=== PATIENT | female | born 1945 | race Caucasian/White ===

== ENCOUNTER → 2019-05-01 | Outpatient (CLI) | payer MEDICARE ==
--- NOTE | 2019-05-01 16:14 | REP ---
Three views thoracic spine, two views right scapula and three views right shoulder: 05/01/2019. Indication: Thoracic, scapular and shoulder pain. Comparison: 12/09/2013. Findings: Diffuse osteopenia is noted. Numerous chronic thoracic anterior compression fractures are redemonstrated with associated exaggerated kyphosis. There is no evidence of acute fracture, subluxation or dislocation. There is no acute osseous injury of the right shoulder or right scapula detected. The visualized lung is clear. Mild S-shaped thoracolumbar scoliosis is present. Impression: No acute osseous injury of the thoracic spine, scapula or right shoulder. Osteopenia. Electronically Signed by Graham Machado DO 05/01/2019 04:05 P
== END ==
LOC: M WUC 14:14
PROVIDERS: ATTEND Nurse Practitioner Family
DX: M85.80 Other specified disorders of bone density and structure, unspecified site (principal); M54.9 Dorsalgia, unspecified; M25.511 Pain in right shoulder

== ENCOUNTER 2019-05-20 05:53 | Inpatient (IN) | payer MEDICARE ==
[~2019-05-20] VITALS: Ht 160 cm; Wt 65.8 kg
[2019-05-20] VITALS (39 sets, daily range): BP systolic 82–182; BP diastolic 50–99; O2SAT 95–99
[2019-05-20] MEDS ORDERED: PRED20TA PO ×2 (06:14→09:07)
[2019-05-20] MEDS ORDERED: ALBU8.5H IH (06:14)
[2019-05-20] MEDS ORDERED: DOXY100T27 PO (06:14)
[2019-05-20] MEDS ORDERED: METH4PACK PO (06:14)
[2019-05-20] MEDS ORDERED: dexameTHASONE 20 MG/5 ML VIAL (J1100) IV ONE (06:15)
[2019-05-20] MEDS ORDERED: MAGNESIUM *L&D* 4 GM/100 ML BAG (40MG/ML) (J3475) IV ONE (06:15)
[2019-05-20] MEDS ORDERED: FUROSEMIDE 100 MG/10 ML VIAL (J1940) IV ONE (06:15)
[2019-05-20] MEDS ORDERED: IPRATROPIUM 0.5MG/ALBUTEROL 2.5MG INH SOL UD 3ML (DUONEB)(J7620) NEB SCH (06:15)
[2019-05-20 06:31] LABS: HEMATOCRIT 50.1 % (36.0-47.0); HEMOGLOBIN 15.6 g/dl (12.0-15.5); MEAN CORPUSCULAR HEMOGLOBIN 30.1 pg (27.0-33.0); MEAN CORPUSCULAR HGB CONC 31.1 g/dl (32.0-36.5); MEAN CORPUSCULAR VOLUME 96.5 fl (80.0-96.0); PLATELET COUNT, AUTOMATED 550 10^3/uL (150-450); RED BLOOD COUNT 5.19 10^6/uL (4.00-5.40)
[2019-05-20 06:38] LABS: WHITE BLOOD COUNT 26.5 10^3/uL (4.0-10.0)
[2019-05-20 06:40] LABS: CALCIUM LEVEL 9.9 MG/DL (8.8-10.2); CK-MB VALUE MASS 4.5 NG/ML (<3.6); CREATININE FOR GFR 1.06 MG/DL (0.55-1.30); GLOMERULAR FILTRATION RATE 54.2 (>39); MB/CK RELATIVE INDEX 8.18 (< OR =4); POTASSIUM SERUM 4.4 MEQ/L (3.5-5.1); TROPONIN I 0.06 NG/ML (< 0.10)
[2019-05-20] MEDS ORDERED: PROPOFOL 1,000 MG/100 ML VIAL As Ordered ONE ×2 (06:47→06:55)
[2019-05-20 06:57] LABS: ATYPICAL LYMPH 6 % (0-5); BASOPHILS 1 % (0-1); LYMPHOCYTES 15 % (16-44); MONOCYTES 9 % (0-5); NEUTROPHILS 67 % (28-66); PLATELET ESTIMATE INCREASED (NORMAL)
[2019-05-20] MEDS ORDERED: NS 500 ML IV ONE (07:15)
[2019-05-20] MEDS ORDERED: ROCURONIUM BROMIDE 50 MG/5 ML VIAL IV STA (07:15)
[2019-05-20] MEDS ORDERED: cefTRIAXone SOD 2 GM in D5W MINI-BAG PLUS 50 ML IV ONE (07:15)
[2019-05-20] MEDS ORDERED: AZITHROMYCIN INJ 500 MG, VIAL MATE ADAPTER 1 EACH in D5W 250 ML IV ONE (07:15)
[2019-05-20] MEDS ORDERED: VECURONIUM BROMIDE 10 MG VIAL As Ordered ONE (07:20)
[2019-05-20] MEDS ORDERED: propofoL 1,000 MG in IV 1 EA IV SCH (07:32)
[2019-05-20] MEDS ORDERED: MIDAZOLAM INJ 5 MG/ML VIAL (J2250) As Ordered ONE (07:41)
[2019-05-20] MEDS ORDERED: ETOMIDATE INJ 20MG/10ML VIAL IV ONE (07:45)
[2019-05-20] MEDS ORDERED: propofoL 200 MG/20 ML VIAL IV ONE (07:45)
[2019-05-20] MEDS ORDERED: SUCCINYLCHOLINE INJ 200 MG/10 ML VIAL (J0330) IV ONE (07:45)
[2019-05-20] MEDS ORDERED: PROAAER10 INH (07:46)
[2019-05-20] MEDS ORDERED: NOREPINEPHRINE 4 MG/4 ML AMP As Ordered ONE (07:48)
[2019-05-20] MEDS ORDERED: MIDAZOLAM HCL 100 MG in D5W 80 ML IV SCH (07:50)
[2019-05-20] MEDS: NOREPINEPHRINE BITARTRATE 8 MG in D5W 492 ML IV SCH ×4 (08:00→17:00)
[2019-05-20] MEDS ORDERED: MIDAZOLAM HCL 50 MG in D5W 40 ML IV SCH (08:00)
--- NOTE | 2019-05-20 08:01 | REP ---
Portable chest x-ray: Supine film. 07:23 a.m. film History: Endotracheal tube placement. Comparison study: May 20, 2019 at 06:26 a.m. Findings: Endotracheal tube has been inserted and is seen in good position at the level of the transverse aorta. Lungs are symmetrically aerated. No infiltrate is seen. Heart is not enlarged. Impression: Endotracheal tube in good position. Otherwise no acute disease. Electronically Signed by Roque Walker MD 05/20/2019 07:53 A
--- NOTE | 2019-05-20 08:09 | REP ---
Portable chest x-ray: Single view. 06:26 a.m. film. History: Dyspnea. No comparison study. Findings: EKG monitoring electrodes overlie the chest along with oxygen delivery tubing. The lungs are symmetrically aerated and free of infiltrate. Heart is not enlarged. Pulmonary vasculature is not increased. Impression: No acute disease. Electronically Signed by Roqeu Walker MD 05/20/2019 08:01 A
[2019-05-20] MEDS ORDERED: REFRIGERATOR IV KEYS XX PRN (08:15)
[2019-05-20] MEDS ORDERED: GABA-843 PO (09:07)
[2019-05-20] MEDS ORDERED: ROCURONIUM BROMIDE 50 MG/5 ML VIAL ONE (09:28)
[2019-05-20] MEDS ORDERED: ETOMIDATE INJ 20MG/10ML VIAL ONE (09:28)
[2019-05-20] MEDS ORDERED: SUCCINYLCHOLINE 100 MG/5 ML SYRINGE (J0330) ONE (09:28)
[2019-05-20] MEDS ORDERED: propofoL 200 MG/20 ML VIAL ONE (09:28)
[2019-05-20 10:28] LABS: MAGNESIUM LEVEL 2.7 MG/DL (1.8-2.4); PHOSPHORUS LEVEL 5.2 MG/DL (2.5-4.9)
[2019-05-20] MEDS: IPRATROPIUM 0.5MG/ALBUTEROL 2.5MG INH SOL UD 3ML (DUONEB)(J7620) NEB SCH ×3 (10:55→20:46)
[2019-05-20] MEDS: PANTOPRAZOLE 40MG INJ (PROTONIX) (C9113) IV SCH (11:02)
[2019-05-20] MEDS: methylPREDNISolone INJ 40 MG/1 ML VIAL (J2920) IV SCH ×2 (11:02→20:08)
[2019-05-20] MEDS: CHLORHEXIDINE GLUCONATE 0.12 % 15ML UDC (PERIDEX ORAL RINSE) MT SCH ×2 (11:02→20:29)
[2019-05-20] MEDS: ENOXAPARIN 40 MG/0.4 ML SYRINGE (J1650) SC SCH (11:03)
[2019-05-20] MEDS: MOXIFLOXACIN HCL 400 MG in IV 1 EA IV SCH (12:33)
[2019-05-20] MEDS ORDERED: NS 1,000 ML IV ONE (13:00)
--- NOTE | 2019-05-20 14:18 | HPEPDOC ---
[facility] Medical History & Physical Date of Admission May 20, 2019 Date of Service: May 20, 2019 Attending Physician: BOZENA TROY MD History and Physical CHIEF COMPLAINT: Dypnea HISTORY OF PRESENT ILLNESS: Patient is a 73 yo female with Hx of COPD who was BIBA to the ED this AM c/o difficulty breathing, and increased cough over the past 4 days. History obtained through ED physician and patient's son as patient intubated at time of admission. Pt was seen in at two separate urgent care visits, was given Medrol dosepak and doxycycline at one visit and prednisone and an inhaler at another visit. Pt's dyspnea has continued to worsen and prompted her to come to the ED this AM. As per her son he had also given her an antibiotic for a tooth ache and she had also complained of back pain and chest pain prior to admission. In the ED, Pt given albuterol, Mg, Dexamethasone and furosemide 100mg IV, placed on NIPPV, but continued to have respiratory distress. Pt was then intubated in the ED and admitted to the intensive care unit. Pt initially placed on levophed in the ED for hypotension post intubation when on propofol for sedation prior to moving to the ICU PAST MEDICAL HISTORY: 1. COPD PAST SURGICAL HISTORY: 1. section SOCIAL HISTORY: Limited secondary to patient being intubated and mechanically ventilated Tobacco use: current every day smoker FAMILY HISTORY: Limited secondary to patient being intubated and mechanically ventilated ALLERGIES: Please see below. REVIEW OF SYSTEMS: Limited secondary to patient being intubated and mechanically ventilated RESPIRATORY: Increased cough, increased difficulty breathing HOME MEDICATIONS: Please see below. PHYSICAL EXAMINATION: VITAL SIGNS: see below GENERAL APPEARANCE: Pt is a elderly female currently sedated and paralyzed s/p RSI, undergoing invasive ventilation. HEENT: Head normocephalic, atraumatic. Mucous membranes moist. ET tube in place. CARDIOVASCULAR: Heart sounds difficult to distinguish secondary to ventilator noise. 2+ distal pulses in all four extremities. LUNGS: Diffuse severe wheezing throughout all lung woods, coarse breath sounds, with very prolonged expiration. Mild rhonchi. ABDOMEN: Soft, non-tender, non-distended. Small subcutaneous, mobile, nodule to the left lower abdomen overlying the ASIS. MUSCULOSKELETAL: No gross deformity. EXTREMITIES: 2+ distal pulses in all 4 extremities, no pitting edema b/l LE. NEUROLOGICAL: unresponsive secondary to sedation and paralyzation. LABORATORY DATA: See below. IMAGING: CXR with signs of hyperinflation and mild airspace disease, flattened diaphragm b/l. No infiltrate or focal consolidation. Repeat CXR with ET tube in correct position. MICROBIOLOGY: Please see below. ASSESSMENT: Pt is a 73 yo F current smoker with Hx of COPD who presented to the ED in acute on chronic hypercarbic respiratory failure secondary to AECOPD, who failed NIPPV and required invasive ventilation. PLAN: 1. Acute on chronic hypercarbic respiratory failure secondary to acute exacerbation of chronic obstructive pulmonary disorder, requiring invasive ventilation. - Continue with invasive ventilation: Volume Control, RR 22, PEEP 5, TV 310mL, SpO2 increased to 45%. Pt tolerating well. - Continue with midazolam drip for sedation while intubated with daily sedation vacation - Initial ABG consistent with acute on chronic hypercarbic respiratory failure, improved s/p intubation and ventilation. - Acute respiratory failure likely secondary to COPD exacerbation. - Pending sputum culture, blood cultures and respiratory panel. - Continue with Duoneb q4h, Methylprednisolon IV 40mg q8h - Patient did not receive ordered abx in the ED, will start patient on M oxifloxacin for COPD exacerbation. 2. Hypotension - Pt had brief episode of hypotension s/p RSI in the ED responding to norepinephrine and 500cc bolus - Later in the ICU, pt with further hypotension. D/c'd propofol for sedation, and gave 1000cc bolus which patient was responsive to. 3. Elevated NT Pro-BNP - NT Pro-BNP at 878 - This is possibly secondary to fluid overload, patient received 100mg of Lasix in the ED, but pt also became hypotensive after diuresis. - Pending echocardiogram to evaluate for heart failure 4. Leukocytosis - WBC 26.5 - likely reactive leukocytosis secondary to recent steroid use, WBC differential without left shift. Less likely secondary to sepsis. CXR on admission did not show any focal opacities to suggest PNA. She was afebrile. Avelox started for COPD exacebation. patient was not give 30mL/kg bolus as there was some concern for fluid overload. DVT prophylaxis with Lovenox GI Ulcer prophylaxis with pantoprazole Total critical care time approx 1hr and 50 mins I, Bozena Troy, have conducted an independent examination and history of the patient and agree with the above plan as detailed and discussed during rounds. Vital Signs Vital Signs Date Time Temp Pulse Resp B/P (MAP) Pulse Ox O2 Delivery O2 Flow Rate FiO2 05/20/19 12:00 45.0 05/20/19 12:00 97.8 87 22 102/51 (68) 87 Ventilator 45 Laboratory Data Labs 24H Laboratory Tests 2 05/20/19 06:07: Lymphocytes # (Auto) , Monocytes # (Auto) , Nucleated Red Blood Cells % (auto) 0.0, Neutrophils 67H, Band Neutrophils 2, Lymphocytes (Manual) 15L, Monocytes (Manual) 9H, Basophils (Manual) 1, Atypical Lymphocytes 6H, Platelet Estimate INCREASED, Anion Gap 6L, Glomerular Filtration Rate 54.2, Calcium Level 9.9, Phosphorus Level 5.2H, Magnesium Level 2.7H, Total Creatine Kinase 55, Creatine Kinase MB 4.5H, Creatine Kinase MB Relative Index 8.18H, Troponin I 0.06, YL-Buo-U-Type Natriuretic Peptide 878H 05/20/19 06:16: POC pH (Misc Panel) 7.140*L, POC Base Excess (Misc Panel) 9.0H, POC Saturated Percent O2 (Misc) 98, POC pO2 (Misc Panel) 142.0H, POC pCO2 (Misc Panel) 111.7*H, POC HCO3 (Misc Panel) 38.0H, POC Total CO2 (Misc Panel) 41.0H 05/20/19 07:58: POC pH (Misc Panel) 7.344L, POC Base Excess (Misc Panel) 6.0H, POC Saturated Percent O2 (Misc) 100H, POC pO2 (Misc Panel) 194.0H, POC pCO2 (Misc Panel) 57.5H, POC HCO3 (Misc Panel) 31.3H, POC Total CO2 (Misc Panel) 33.0H CBC/BMP Laboratory Tests 05/20/19 06:07 Microbiology Microbiology 05/20/19 Respiratory Virus Panel (PCR) ([facility]), Received Pending 05/20/19 Gram Stain, Received Pending 05/20/19 Sputum Culture, Received Pending 05/20/19 Blood Culture, Received Pending Home Medications Scheduled Doxycycline Monohydrate (Doxycycline Monohydrate) 100 Mg Tablet, 100 MG PO BID PICKED UP 05/18/19 FROM [facility] Gabapentin (Gabapentin) 300 Mg Capsule, 300 MG PO BID Methylprednisolone (Methylprednisolone) 4 Mg Tab.ds.pk, 4 MG PO ASDIRECTED take 6 Pills Day 1, 5 Pills Day 2, 4 Pills Day 3, 3 Pills Day 4, 2 Pills Day 5 and 1 pill Day 6, PICKED UP 05/18/19 FROM [facility] Prednisone (Prednisone) 20 Mg Tablet, 20 MG PO TAPER 60MG DAILY X 2 DAYS 40MG DAILY X 7 DAYS 20MG DAILY X 2 DAYS PICKED UP FROM [facility] 05/18/19 Scheduled PRN Albuterol Sulfate (Proair Hfa) 8.5 Gm Hfa.aer.ad, 2 PUFF INH Q4H PRN for SHORTNESS OF BREATH Allergies Coded Allergies: Penicillins (Verified Allergy, Unknown, UNKNOWN REACTION PER SON, 05/20/19) [facility] May 20, 2019 14:19 BOZENA TROY MD May 22, 2019 13:15
[2019-05-20] MEDS: MIDAZOLAM HCL 100 MG in D5W 80 ML IV SCH (19:14)
[2019-05-21] VITALS (27 sets, daily range): BP systolic 108–141; BP diastolic 54–89; O2SAT 99
[2019-05-21] MEDS: IPRATROPIUM 0.5MG/ALBUTEROL 2.5MG INH SOL UD 3ML (DUONEB)(J7620) NEB SCH ×6 (00:33→20:05)
[2019-05-21] MEDS: NOREPINEPHRINE BITARTRATE 8 MG in D5W 492 ML IV SCH (01:54)
[2019-05-21] MEDS: methylPREDNISolone INJ 40 MG/1 ML VIAL (J2920) IV SCH ×3 (04:08→20:14)
[2019-05-21 04:52] LABS: HEMATOCRIT 37.7 % (36.0-47.0); MEAN CORPUSCULAR HEMOGLOBIN 30.2 pg (27.0-33.0); MEAN CORPUSCULAR HGB CONC 32.9 g/dl (32.0-36.5); MEAN CORPUSCULAR VOLUME 91.7 fl (80.0-96.0); RED BLOOD COUNT 4.11 10^6/uL (4.00-5.40); WHITE BLOOD COUNT 20.3 10^3/uL (4.0-10.0)
[2019-05-21 04:55] LABS: HEMOGLOBIN 12.4 g/dl (12.0-15.5); PLATELET COUNT, AUTOMATED 435 10^3/uL (150-450)
[2019-05-21 05:09] LABS: CALCIUM LEVEL 8.6 MG/DL (8.8-10.2); CREATININE FOR GFR 1.37 MG/DL (0.55-1.30); GLOMERULAR FILTRATION RATE 40.3 (>39); MAGNESIUM LEVEL 3.3 MG/DL (1.8-2.4); PHOSPHORUS LEVEL 4.5 MG/DL (2.5-4.9); POTASSIUM SERUM 4.3 MEQ/L (3.5-5.1)
[2019-05-21 06:21] LABS: ABG BASE EXCESS 4.8 (-2.0-2.0); ABG HCO3 28.9 MEQ/L (22.0-26.0); ABG O2 SATURATION 98.4 % (95.0-99.0); ABG PARTIAL PRESSURE CO2 40.7 mmHg (35.0-45.0); ABG PARTIAL PRESSURE O2 107.7 mmHg (75.0-100.0); ABG STANDARD HCO3 28.8 MEQ/L (22.0-26.0); ABG TOTAL CO2 30.1 MEQ/L (23.0-31.0); ABG pH (ARTERIAL) 7.469 UNITS (7.350-7.450)
[2019-05-21] MEDS ORDERED: NS 500 ML IV ONE ×2 (08:00→19:00)
[2019-05-21 08:13] LABS: TROPONIN I 0.2 NG/ML (< 0.10)
--- NOTE | 2019-05-21 08:24 | REP ---
Portable chest x-ray: Single view. History: Intubated patient. Findings: EKG electrodes are seen. Endotracheal tube is in good position at the level of the transverse aorta unchanged. NG tube enters the left upper quadrant. The lungs are symmetrically aerated. There is a skin fold at the left apex. No focal infiltrate. Heart is not enlarged. Impression: Endotracheal and nasogastric tubes in place. No acute cardiopulmonary changes. Electronically Signed by Roque Walker MD 05/21/2019 10:34 A
[2019-05-21 08:32] LABS: APPEARANCE, URINE CLOUDY (CLEAR); BACTERIA, URINE AUTO 1+ (NEGATIVE); BILIRUBIN, URINE AUTO NEGATIVE (NEGATIVE); BLOOD, URINE BLOOD 3+ (NEGATIVE); COLOR, URINE YELLOW (YELLOW); GLUCOSE, URINE (UA) AUTO NEGATIVE (NEGATIVE); KETONE, URINE AUTO NEGATIVE (NEGATIVE); LEUKOCYTE ESTERASE, URINE AUTO NEGATIVE (NEGATIVE); MUCUS, URINE SMALL (NEGATIVE); NITRITE, URINE AUTO NEGATIVE (NEGATIVE); PROTEIN, URINE AUTO NEGATIVE (NEGATIVE); RBC, URINE AUTO TNTC /HPF (0-3); SPECIFIC GRAVITY URINE AUTO 1.019 (1.002-1.035); SQUAMOUS EPITHELIAL CELL UR AU 0 /HPF (0-6); URIC ACID CRYSTALS SMALL; UROBILINOGEN, URINE AUTO 0.2 mg/dL (0.0-2.0); WBC, URINE AUTO 6 /HPF (0-3)
[2019-05-21] MEDS: CHLORHEXIDINE GLUCONATE 0.12 % 15ML UDC (PERIDEX ORAL RINSE) MT SCH ×2 (10:00→20:14)
[2019-05-21] MEDS: PANTOPRAZOLE 40MG INJ (PROTONIX) (C9113) IV SCH (10:00)
[2019-05-21] MEDS: ENOXAPARIN 40 MG/0.4 ML SYRINGE (J1650) SC SCH (10:00)
--- NOTE | 2019-05-21 11:13 | IPNPDOC ---
Text Note Date of Service The patient was seen on 05/21/19. NOTE S: Overnight, pt's MAP remained above 65 and norepinephrine is being held. Pt mouthed to nurse that she has a UTI, and per pt's son, she was complaining of back pain/chest pain. Per nursing, during sedation vacation, pt was fighting machine, became agitated and desaturated down to 88%. Pt's Midazolam drip rate increased to 4mg/hr, and pt recovered well. Pt's FiO2 reduced to 30% and pt tolerating well. O: Physical exam VS: See below General: Pt sedated and undergoing invasive mechanical ventilation, but responsive to commands to open eyes and wakes to noise stimulus. HEENT: crusted eyelids without purulent drainage, mucous membranes moist, trachea midline. ET tube 23 at the lips, OG tube in place. Cardiovascular: Normal S1 and S2, no murmurs, gallops or rubs appreciated. 2+ radial and DP pulses in b/l arms and legs. Respiratory: Diffuse moderate inspiratory and expiratory wheezes, improved from yesterday. Coarse breath sounds. No crackles. Gastrointestinal: Abdomen is soft, non-tender and non-distended. Left lower abdomen with subcutaneous nodule. Extremities: Trace pitting edema b/l LE up to the mid durham. Skin: No rashes, bruising or petechiae noted. Neuro: Sedated but responds to commands and questions. PERRLA. Labs: See below. blood cultures: neg Respiratory panel: neg Sputum culture: preliminary result with gram positive cocci and rods CXR: ET tube close to the renetta, no acute disease. A: Pt is a 73 yo Female on day 2 of her ICU stay who was admitted to the hospital for acute on chronic hypercapnic respiratory failure, likely secondary to Acute exacerbation of COPD. Pt failed NIPPV in the ED, requiring intubation and mechanical ventilation, along with treatment of her COPD exacerbation. P: 1. Acute on chronic hypercarbic respiratory failure secondary to acute exacerbation of chronic obstructive pulmonary disorder, requiring invasive ventilation. - Continue with invasive ventilation: Volume Control, TV 370, RR 22, FiO2 decreased to 30%, PEEP 5. ET tube moved to 23cm at the lips given CXR findings. - during sedation vacation pt did not tolerate ventilator well, desaturated. Will wait another day before attempting weaning trial. - Continue with midazolam at 4mg/hr for sedation while intubated with daily sedation vacations. - ABG today improved, no longer hypercarbic. - Acute respiratory failure likely secondary to COPD exacerbation from viral process, although respiratory panel negative. - blood culture with no growth at 24hrs - sputum culture preliminary results with gram positive cocci and rods, likely normal torsten - Continue with Duoneb q4h, Methylprednisolone IV 40mg q8h, and Moxifloxacin 400mg QD for COPD exacerbation. 2. Hypotension - resolving - Pt had brief episode of hypotension s/p RSI in the ED responding to norepinephrine and 500cc bolus - Pt's hypotension improved s/p d/c of propofol and an additional 1000mL bolus. Pt not requiring norepinephrine overnight with MAP>65 all night. 3. Acute Kidney Injury - BUN increased to 49 today, Creatinine increased to 1.37 today - likely pre-renal secondary to diuresis and hypotension yesterday - treating with 500mL bolus of IVF and starting OG tube feedings with free water today. 4. Troponinemia - repeated troponin as pt and son with some concerning history of chest pain/back pain - repeat troponin elevated at 0.20 - recheck troponin at 1400 - likely secondary to mild demand ischemia with some underlying CAD given pt is a current everyday smoker. 5. Elevated NT Pro-BNP - NT Pro-BNP at 878 - This is possibly secondary to fluid overload, patient received 100mg of Lasix in the ED, but pt also became hypotensive after diuresis. - Pending echocardiogram results to evaluate for heart failure 6. Leukocytosis - improving - WBC improved from 26.5, now 20.3 - likely reactive leukocytosis secondary to recent steroid use, WBC differential without left shift. Less likely secondary to sepsis as pt without clear source of infection on CXR and UA with no other localizing symptoms and afebrile throughout stay, Tmax 99.1. 7. OG tube feeding - starting today at 20mL/hr titrating up to 50ml/hr goal. - free water 100 mL q8hr - Vegetable [employer] Farm[employer] recommends addition of 1 scoop of beneprotein 4x/day - hold feeding for residual >300mL 8. Concern for UTI - given hx from pt, son and nurse, ordered UA. - UA without definitive signs of infection, but positive for hematuria. Pt does not have UTI at this time. DVT prophylaxis with Lovenox GI Ulcer prophylaxis with pantoprazole Total critical care time spent approx 50mins Bozena [place], have conducted an independent examination and history of patient and agree with the plan as detailed above and discussed during rounds. VSDot, I+O VSDot, I+O Laboratory Tests 05/21/19 04:21 Vital Signs Date Time Temp Pulse Resp B/P (MAP) Pulse Ox O2 Delivery O2 Flow Rate FiO2 05/21/19 06:01 98.9 102 141/89 (106) 95 Ventilator 35 05/21/19 05:20 22 05/20/19 12:00 45.0 I&O- Last 24 Hours up to 6 AM 05/21/19 06:00 Intake Total 1190.1 ml Output Total 2019 ml Balance -829.9 ml [facility] May 21, 2019 09:48 BOZENA KENNEDY MD May 22, 2019 13:41
[2019-05-21] MEDS: MOXIFLOXACIN HCL 400 MG in IV 1 EA IV SCH (11:32)
[2019-05-21] MEDS ORDERED: SLF 3 ML SYR IV PRN (17:30)
[2019-05-21] MEDS: MIDAZOLAM HCL 100 MG in D5W 80 ML IV SCH (18:18)
[2019-05-21] MEDS: SLF 3 ML SYR IV SCH (20:14)
[2019-05-22] VITALS (24 sets, daily range): BP systolic 111–148; BP diastolic 57–77; O2SAT 89–97
[2019-05-22] MEDS: IPRATROPIUM 0.5MG/ALBUTEROL 2.5MG INH SOL UD 3ML (DUONEB)(J7620) NEB SCH ×6 (00:21→19:51)
[2019-05-22] MEDS: methylPREDNISolone INJ 40 MG/1 ML VIAL (J2920) IV SCH ×3 (04:00→19:45)
[2019-05-22 05:00] LABS: HEMATOCRIT 35.7 % (36.0-47.0); HEMOGLOBIN 11.8 g/dl (12.0-15.5); MEAN CORPUSCULAR HEMOGLOBIN 30.4 pg (27.0-33.0); MEAN CORPUSCULAR HGB CONC 33.1 g/dl (32.0-36.5); PLATELET COUNT, AUTOMATED 379 10^3/uL (150-450); RED BLOOD COUNT 3.88 10^6/uL (4.00-5.40)
[2019-05-22 05:21] LABS: CALCIUM LEVEL 8.1 MG/DL (8.8-10.2); CREATININE FOR GFR 1.34 MG/DL (0.55-1.30); GLOMERULAR FILTRATION RATE 41.4 (>39); MAGNESIUM LEVEL 2.8 MG/DL (1.8-2.4); PHOSPHORUS LEVEL 3.7 MG/DL (2.5-4.9)
[2019-05-22 06:15] LABS: ABG BASE EXCESS 3.3 (-2.0-2.0); ABG HCO3 27.6 MEQ/L (22.0-26.0); ABG O2 SATURATION 94.8 % (95.0-99.0); ABG PARTIAL PRESSURE CO2 41.1 mmHg (35.0-45.0); ABG STANDARD HCO3 27.3 MEQ/L (22.0-26.0); ABG TOTAL CO2 28.9 MEQ/L (23.0-31.0); ABG pH (ARTERIAL) 7.445 UNITS (7.350-7.450)
[2019-05-22] MEDS: SLF 3 ML SYR IV SCH ×3 (06:16→21:17)
--- NOTE | 2019-05-22 07:34 | ECGEPIP ---
[facility] - ED Test Date: 2019-05-20 Pat Name: MO GRANT Department: Room: - Gender: Female Proposal Consultant: KK : [id number] Requested By: DELLA SIMON Order Number: [id number] Reading MD: Cee Laguna Measurements Intervals Basehor Rate: 111 P: 93 OK: 128 QRS: 48 QRSD: 78 T: 49 QT: 296 QTc: 403 Interpretive Statements SINUS TACHYCARDIA NSTTW abnormalities ABNORMAL RHYTHM ECG NO PRIOR Electronically Signed on 05-22-2019 7:34:35 EST by Cee Laguna
--- NOTE | 2019-05-22 08:00 | REP ---
Portable chest x-ray: Single view. History: Intubated patient. Comparison study: May 21, 2019. Findings: The patient is rotated somewhat to the right. The patient's chin overlies the apices. Endotracheal tube projects just above the renetta. A nasogastric tube is seen entering the left upper quadrant. No infiltrate is present. Electronically Signed by Roque Walker MD 05/22/2019 07:51 A
[2019-05-22] MEDS: MOXIFLOXACIN HCL 400 MG in IV 1 EA IV SCH (09:57)
[2019-05-22] MEDS: CHLORHEXIDINE GLUCONATE 0.12 % 15ML UDC (PERIDEX ORAL RINSE) MT SCH ×2 (09:57→19:45)
[2019-05-22] MEDS: ENOXAPARIN 40 MG/0.4 ML SYRINGE (J1650) SC SCH (09:57)
[2019-05-22] MEDS: PANTOPRAZOLE 40MG INJ (PROTONIX) (C9113) IV SCH (09:57)
--- NOTE | 2019-05-22 12:28 | IPNPDOC ---
Text Note Date of Service The patient was seen on 05/22/19. NOTE S: Overnight, pt tolerating ventilator well at 30% FiO2, SpO2 92-99%. Nursing staff noted frequent PVCs and PACs overnight, but no sustained beats. Pt currently at Tommy sedation score of 2 on midazolam at 4mg/hr, pt comfortable, in no pain. Attempted weaning trial this AM, but pt quickly became tachypneic into the 50's and desaturated into 80's. Pt replaced on Volume Control settings. O: Physical exam VS: see below General: Pt lightly sedated and undergoing invasive mechanical ventilation, but responsive to commands, communicating through writing. HEENT: PERRLA, EOMI, mucous membranes moist, trachea midline. ET tube 23 at the lips, OG tube in place. Cardiovascular: Normal S1 and S2, no murmurs, gallops or rubs appreciated. 2+ radial and DP pulses in b/l arms and legs. Respiratory: Diffuse mild expiratory wheezes, improved from yesterday. Coarse breath sounds. No crackles. Gastrointestinal: Abdomen is soft, non-tender and non-distended. Left lower abdomen with subcutaneous nodule. Extremities: Trace pitting edema b/l LE up to the mid durham, unchanged from yest erday. Skin: No rashes, bruising or petechiae noted. Neuro: lightly sedated, Tommy sedation score scale 2, follows commands and responds to questions through head motions. Labs: See below. blood cultures: neg x 48hrs Respiratory panel: neg Sputum culture: preliminary result with gram positive cocci and rods CXR: no acute disease. A: Pt is a 73 yo Female on day 3 of her ICU stay who was admitted to the hospital for acute on chronic hypercapnic respiratory failure, likely secondary to Acute exacerbation of COPD. Pt failed weaning trial from ventilator today, and will continue with treatment of her COPD exacerbation. Currently on Day 3/5 of abx therapy and 3/5 of corticosteroid therapy. P: 1. Acute on chronic hypercarbic respiratory failure secondary to acute exacerbation of chronic obstructive pulmonary disorder, requiring invasive ventilation. - Continue with invasive ventilation: Volume Control, TV 370, RR 22, FiO2 30%, PEEP 5. ET tube 23cm at the lips. - attempted weaning trial this AM, pt tolerated poorly becoming tachypneic into 50's and desaturated down to SpO2 80%. Will attempt again tomorrow AM. - Continue with midazolam at 4mg/hr for maintenance sedation with sedation vacation daily - daily ABG and CXR while intubated, vent bundle with HOB elevation and chlorhexidine mouth wash - ABG stable. - Acute respiratory failure likely secondary to COPD exacerbation from viral process, although respiratory panel negative. - blood culture with no growth at 48hrs - sputum culture final results with normal torsten - Continue with Duoneb q4h, Methylprednisolone IV 40mg q8h (Day 3/5), and Moxifloxacin 400mg QD (Day 3/5) for COPD exacerbation. 2. Acute Kidney Injury - BUN increased to 57 today, Creatinine stabilized at 1.34 today - likely secondary to diuresis on admission, repeat BMP this afternoon to reevaluate. - Holding IVF for now as pt with OG tube feedings at goal with free water, and exercising caution to not fluid overload patient in light of concern for HF. 3. Troponinemia - repeated troponin as pt and son with some concerning history of chest pain/back pain - repeat troponin elevated at 0.20, but trending downward after 6 hours. - likely secondary to demand ischemia. Recommend pt receive cardiac catheterization in the near future. 4. Elevated NT Pro-BNP - NT Pro-BNP at 878 - This is possibly secondary to fluid overload but most likely related to acute COPD and also likely her hx of chronic COPD with possible pulm HTN. patient received 100mg of Lasix in the ED, but pt also became hypotensive after diuresis. would hold diuresis for now and monitor fluid status - Pending echocardiogram results to evaluate for heart failure, echo completed May. 5. Leukocytosis - WBC improved from 26.5, stable at 20.0 today - likely reactive leukocytosis secondary to recent steroid use, WBC differential without left shift. Less likely secondary to sepsis as pt without source of infection and afebrile throughout stay, Tmax 99.1. - considering continued leukocytosis today, ordered Procalcitonin. I doubt pneumonia as blood cultures and sputum cultures are negative. 6. OG tube feeding - starting today at 20mL/hr titrating up to 50ml/hr goal. - free water 100 mL q8hr - High School Coach recommends addition of 1 scoop of beneprotein 4x/day - hold feeding for residual >300mL 7. Hypotension - resolved - Pt had brief episode of hypotension s/p RSI in the ED responding to norepinephrine and 500cc bolus - Pt's hypotension improved s/p d/c of propofol and 1000mL bolus. Norepinephrine drip d/c. DVT prophylaxis with Lovenox GI Ulcer prophylaxis with pantoprazole FULL CODE Total critical care time spent not including any procedures approx 40mins Bozena [place], have conducted and independent examination and history of patient and agree with the above plan as detailed by medical student and discussed during rounds. VS,Fishbone, I+O VS, Fishbone, I+O Laboratory Tests 05/22/19 04:49 Vital Signs Date Time Temp Pulse Resp B/P (MAP) Pulse Ox O2 Delivery O2 Flow Rate FiO2 05/22/19 08:00 30 30 05/22/19 07:46 93 05/22/19 07:46 93 Ventilator 05/22/19 04:00 98.0 144/70 (94) 05/20/19 12:00 45.0 I&O- Last 24 Hours up to 6 AM 05/22/19 06:00 Intake Total 2524 ml Output Total 865 ml Balance 1659 ml [facility] May 22, 2019 11:13 BOZENA KENNEDY MD May 25, 2019 13:09
[2019-05-22] MEDS: MIDAZOLAM INJ 2 MG/2 ML VIAL (J2250) IV PRN ×2 (13:13→16:07)
[2019-05-22] MEDS: fentaNYL 100 MCG/2 ML INJECTION (J3010) IV PRN ×2 (13:13→16:07)
[2019-05-22 14:02] LABS: CALCIUM LEVEL 8.5 MG/DL (8.8-10.2); CREATININE FOR GFR 1.4 MG/DL (0.55-1.30); GLOMERULAR FILTRATION RATE 39.4 (>39); POTASSIUM SERUM 4.3 MEQ/L (3.5-5.1)
[2019-05-22] MEDS: NS 0.45% 1,000 ML IV SCH (16:06)
[2019-05-22] MEDS: NICOTINE 21MG/24HR 1 EA TRANSDERMAL TD SCH (17:16)
[2019-05-22] MEDS: MIDAZOLAM HCL 100 MG in D5W 80 ML IV SCH (18:05)
[2019-05-23] VITALS (22 sets, daily range): BP systolic 126–167; BP diastolic 69–119; O2SAT 92–96
[2019-05-23] MEDS: IPRATROPIUM 0.5MG/ALBUTEROL 2.5MG INH SOL UD 3ML (DUONEB)(J7620) NEB SCH ×7 (00:34→23:56)
[2019-05-23] MEDS: methylPREDNISolone INJ 40 MG/1 ML VIAL (J2920) IV SCH ×2 (04:01→16:31)
[2019-05-23 05:29] LABS: HEMATOCRIT 39.9 % (36.0-47.0); HEMOGLOBIN 12.7 g/dl (12.0-15.5); MEAN CORPUSCULAR HEMOGLOBIN 29.7 pg (27.0-33.0); MEAN CORPUSCULAR HGB CONC 31.8 g/dl (32.0-36.5); MEAN CORPUSCULAR VOLUME 93.4 fl (80.0-96.0); PLATELET COUNT, AUTOMATED 406 10^3/uL (150-450); RED BLOOD COUNT 4.27 10^6/uL (4.00-5.40); WHITE BLOOD COUNT 20.3 10^3/uL (4.0-10.0)
[2019-05-23] MEDS: SLF 3 ML SYR IV SCH ×3 (05:30→21:06)
[2019-05-23] MEDS: NS 0.45% 1,000 ML IV SCH (05:30)
[2019-05-23 05:42] LABS: CALCIUM LEVEL 8.3 MG/DL (8.8-10.2); CREATININE FOR GFR 1.14 MG/DL (0.55-1.30); GLOMERULAR FILTRATION RATE 49.9 (>39); MAGNESIUM LEVEL 2.8 MG/DL (1.8-2.4); PHOSPHORUS LEVEL 3.9 MG/DL (2.5-4.9); POTASSIUM SERUM 4.2 MEQ/L (3.5-5.1)
[2019-05-23 05:52] LABS: ABG BASE EXCESS 1.7 (-2.0-2.0); ABG HCO3 26.9 MEQ/L (22.0-26.0); ABG PARTIAL PRESSURE CO2 44.9 mmHg (35.0-45.0); ABG PARTIAL PRESSURE O2 105.5 mmHg (75.0-100.0); ABG TOTAL CO2 28.3 MEQ/L (23.0-31.0); ABG pH (ARTERIAL) 7.396 UNITS (7.350-7.450)
--- NOTE | 2019-05-23 06:38 | ECHO ---
DATE OF PROCEDURE: 05/20/2019 REFERRING PROVIDER: Dr. Mary Desai INDICATION: Heart failure unspecified. HEIGHT: 160 cm. WEIGHT: 62 kg. 2D MEASUREMENTS: Aortic root - 2.7 cm Left atrium - 2.9 cm Ventricular septum - 1.18 cm Posterior wall - 1.16 cm Left ventricle diastole - 3.0 cm Inferior vena cava - 1.6 cm DOPPLER MEASUREMENTS: Aortic valve velocity - 124 cm/s LVOT velocity - 121 cm/s LVOT VTI - 15.1 cm No aortic regurgitation. No mitral regurgitation. No tricuspid regurgitation. No pulmonic regurgitation. Mitral E velocity - 61.7 cm/s Mitral A velocity - 87.4 cm/s Mitral deceleration time - 282 ms Pulmonary artery systolic pressure estimated to be 25 mmHg. MITRAL ANNULAR TISSUE DOPPLER: E prime septal - 5.3 cm/s E prime lateral - 5.4 cm/s DESCRIPTION: Rhythm was sinus. Image quality was moderately technically difficult. This was a 2D, M-mode, color flow Doppler and pulsed wave Doppler examination including mitral annular tissue Doppler. CONCLUSIONS: 1. Hyperdynamic LV systolic function. Normal LV internal dimensions and wall thickness. LVEF 75% by visual estimate. No regional wall motion abnormalities of the left ventricle. Grade 1 LV diastolic dysfunction (impaired relaxation filling pattern). 2. Suggestive of normal pulmonary artery systolic pressure. 3. Mild aortic valve sclerosis of a three-cuspid aortic valve. No aortic regurgitation. 4. Mild mitral annular calcification. No mitral regurgitation. 5. No pericardial effusion.
--- NOTE | 2019-05-23 08:34 | IPNPDOC ---
Text Note Date of Service The patient was seen on 05/23/19. NOTE S: Yesterday afternoon, pt became agitated and anxious regarding her progress, requiring additional doses of midazolam and fentanyl. Nicotine patch given as requested. Attempted weaning trial yesterday morning but pt did not tolerate. Overnight there were no adverse events, and nursing notes her urine output to be around 40cc/hr. This morning pt requesting extubation, noting her breathing to be improved and denies being in any pain. Attempted weaning trial this AM, however pt still unable to tolerate. O: Physical exam VS: see below General: Pt lightly sedated and undergoing invasive mechanical ventilation, but responsive to commands, communicating through writing. HEENT: PERRLA, EOMI, mucous membranes moist, trachea midline. ET tube 23 at the lips, OG tube in place. Cardiovascular: Normal S1 and S2, no murmurs, gallops or rubs appreciated. 2+ radial and DP pulses in b/l arms and legs. Respiratory: Mild expiratory wheezes on the left, mild inspiratory and expirat ory wheezes on the right. Coarse breath sounds. No crackles. Gastrointestinal: Abdomen is soft, non-tender and non-distended. Left lower abdomen with subcutaneous nodule. Extremities: Trace pitting edema b/l LE up to the mid [place]. Skin: No rashes, bruising or petechiae noted. Neuro: lightly sedated, Tommy sedation score scale 2, follows commands and responds to questions through head motions. Labs: See below. blood cultures: neg x 72hrs Respiratory panel: neg Sputum culture: final result negative. Normal torsten. CXR: signs of pulmonary edema with b/l pleural effusions, ET tube near renetta Echocardiogram: hyperdynamic LV systolic function, LVEF 75%, grade I diastolic dysfunction. Mild mitral regurgitation. A: Pt is a 73 yo Female on day 4 of her ICU stay who was admitted to the hospital for acute on chronic hypercapnic respiratory failure, likely secondary to Acute exacerbation of COPD. Pt failed weaning trial from ventilator yesterday and today, will reattempt tomorrow, and continue with treatment of her COPD exacerbation. Currently on Day 4/5 of abx therapy and 4 of corticosteroid therapy, starting steroid taper. P: 1. Acute on chronic hypercarbic respiratory failure secondary to acute exacerbation of chronic obstructive pulmonary disorder, requiring invasive ventilation. - Continue with invasive ventilation: Volume Control, TV 370, RR 18, FiO2 35%, PEEP 5. ET tube 23cm at the lips, will pull back to adjust to 22cm at lips given CXR. Titrate FiO2 to SpO2 88-92%. - attempted weaning yesterday and today but pt did not tolerate. With PS at settings 6/5 patient became tachypneic to 40's and reported difficulty breathing. Will attempt again tomorrow with extubation to NIPPV if pt tolerates to hopefully avoid reintubation. - discontinue midazolam for maintenance sedation and replace with propofol for sedation as BP improved and continue with sedation vacations. - addition of PRN midazolam and fentanyl for anxiety and pain. - ABG stable. cont with daily ABG and CXR while intubated with vent bundle care - Acute respiratory failure likely secondary to COPD exacerbation from viral process, although respiratory panel negative. - blood culture with no growth at 72hrs - sputum culture final results with normal torsten - Continue with Duoneb q4h, Moxifloxacin 400mg QD (Day 08/17) for COPD exacerbation. Start weaning steroids, adjust Methylprednisolone IV to 40mg q12h Day 4 of steroids. 2. Acute Kidney Injury- resolving - likely secondary to diuresis on admission and continued cautious approach to possible fluid overload - BUN and creatinine increased further yesterday afternoon. yesterday placed patient on 75mL/hr NS - BUN/creatinine improved this AM s/p fluids. Urine output around 40cc/hr. - Discontinue IVF as pt with OG tube feedings at goal with free water. - Will continue to monitor fluid status 3. Leukocytosis - WBC remains elevated but stable, 20.3 today - likely reactive leukocytosis secondary to recent steroid use, WBC differential without left shift. Less likely secondary to sepsis as pt without source of infection and afebrile throughout stay, Tmax 99.1. - Procalcitonin 0.40. blood cultures and sputum cultures are negative. UA returned without signs of UTI. Pt remains afebrile. 4. Elevated NT Pro-BNP - Pt with some increased congestion on CXR this AM with increased sputum production overnight. Will hold IVF today, and administer furosemide if needed. - NT Pro-BNP at 878 on admission, likely due acute COPD exacerbation, less likely from HF - Echocardiogram results without signs of heart failure. EF 75% without significant diastolic dysfunction. 5. elevated blood pressure - Pt's blood pressure has been steadily climbing since admission. - BP overnight ranged from 120/60s to 160/80s. Will continue to monitor - Pt's PCP is Dr. Jain, but pt notes that she does not take any blood pressure medications at home. - do not feel need to administer antihypertensives at this time, swapping to propofol for sedation. 6. Troponinemia - repeated troponin as pt and son with some concerning history of chest pain/back pain - repeat troponin elevated at 0.20, but trending downward after 6 hours. - likely secondary to demand ischemia. Recommend pt receive cardiac evaluation and likely catheterization in the near future. 7. OG tube feeding - Continue at 50ml/hr goal. - free water 100 mL q8hr - Continue with wireline supervisor recommendation of 1 scoop of beneprotein 4x/day - hold feeding for residual >300mL DVT prophylaxis with Lovenox GI Ulcer prophylaxis with pantoprazole FULL CODE Total critical care time spent not including any procedures approx 40 mins Bozena [place], have conducted an independent examination and history of the patient and agree with the above detailed plan as discussed during rounds. VS,Fishbone, I+O VS, Fishbone, I+O Laboratory Tests 05/22/19 13:22 05/23/19 04:47 Vital Signs Date Time Temp Pulse Resp B/P (MAP) Pulse Ox O2 Delivery O2 Flow Rate FiO2 05/23/19 07:00 98 22 157/74 (101) 94 Ventilator 35 05/23/19 04:00 98.5 05/20/19 12:00 45.0 I&O- Last 24 Hours up to 6 AM 05/23/19 06:00 Intake Total 3135 ml Output Total 935 ml Balance 2200 ml [facility] May 23, 2019 08:17 BOZENA KENNEDY MD May 25, 2019 14:00
[2019-05-23] MEDS: CHLORHEXIDINE GLUCONATE 0.12 % 15ML UDC (PERIDEX ORAL RINSE) MT SCH ×2 (09:29→21:06)
[2019-05-23] MEDS: NICOTINE 21MG/24HR 1 EA TRANSDERMAL TD SCH (09:29)
[2019-05-23] MEDS: ENOXAPARIN 40 MG/0.4 ML SYRINGE (J1650) SC SCH (09:29)
[2019-05-23] MEDS: PANTOPRAZOLE 40MG INJ (PROTONIX) (C9113) IV SCH (09:29)
[2019-05-23] MEDS: MIDAZOLAM INJ 2 MG/2 ML VIAL (J2250) IV PRN ×2 (10:04→22:17)
[2019-05-23] MEDS: MOXIFLOXACIN HCL 400 MG in IV 1 EA IV SCH (11:08)
--- NOTE | 2019-05-23 11:26 | REP ---
Portable chest x-ray: AP semi-erect view. History: Intubated. Findings: Endotracheal tube is seen at the level just below the transverse aorta. NG tube enters left upper quadrant. The patient is rotated somewhat to the left for the current exposure. Monitoring electrodes and oxygen delivery tubing are seen. There is no acute infiltrate in the lung woods. Pleural angles are sharp. Heart is not enlarged. Electronically Signed by Roque Walker MD 05/23/2019 07:52 A
[2019-05-23] MEDS: propofoL 1,000 MG in IV 1 EA IV SCH ×2 (11:51→19:08)
[2019-05-23] MEDS: ACETAMINOPHEN 325 MG/10.15 ML UDC GT PRN (21:44)
[2019-05-24] VITALS (23 sets, daily range): BP systolic 118–183; BP diastolic 59–82; O2SAT 95–100
[2019-05-24] MEDS: propofoL 1,000 MG in IV 1 EA IV SCH ×3 (03:08→18:11)
[2019-05-24] MEDS: methylPREDNISolone INJ 40 MG/1 ML VIAL (J2920) IV SCH ×2 (03:08→16:34)
[2019-05-24] MEDS: IPRATROPIUM 0.5MG/ALBUTEROL 2.5MG INH SOL UD 3ML (DUONEB)(J7620) NEB SCH ×6 (04:10→23:52)
[2019-05-24 05:18] LABS: HEMATOCRIT 42.1 % (36.0-47.0); HEMOGLOBIN 12.9 g/dl (12.0-15.5); MEAN CORPUSCULAR HEMOGLOBIN 29.5 pg (27.0-33.0); MEAN CORPUSCULAR HGB CONC 30.6 g/dl (32.0-36.5); MEAN CORPUSCULAR VOLUME 96.1 fl (80.0-96.0); PLATELET COUNT, AUTOMATED 406 10^3/uL (150-450); RED BLOOD COUNT 4.38 10^6/uL (4.00-5.40); WHITE BLOOD COUNT 19.9 10^3/uL (4.0-10.0)
[2019-05-24 05:36] LABS: ABG BASE EXCESS -0.1 (-2.0-2.0); ABG HCO3 25.2 MEQ/L (22.0-26.0); ABG O2 SATURATION 96.5 % (95.0-99.0); ABG PARTIAL PRESSURE CO2 43.6 mmHg (35.0-45.0); ABG PARTIAL PRESSURE O2 86.5 mmHg (75.0-100.0); ABG STANDARD HCO3 24.4 MEQ/L (22.0-26.0); ABG TOTAL CO2 26.6 MEQ/L (23.0-31.0)
[2019-05-24] MEDS: SLF 3 ML SYR IV SCH ×3 (05:36→20:28)
[2019-05-24 05:43] LABS: CALCIUM LEVEL 8.6 MG/DL (8.8-10.2); CREATININE FOR GFR 1.09 MG/DL (0.55-1.30); GLOMERULAR FILTRATION RATE 52.5 (>39); MAGNESIUM LEVEL 2.8 MG/DL (1.8-2.4); PHOSPHORUS LEVEL 4.3 MG/DL (2.5-4.9); POTASSIUM SERUM 4.6 MEQ/L (3.5-5.1)
[2019-05-24] MEDS: CHLORHEXIDINE GLUCONATE 0.12 % 15ML UDC (PERIDEX ORAL RINSE) MT SCH ×2 (08:26→20:28)
[2019-05-24] MEDS: ENOXAPARIN 40 MG/0.4 ML SYRINGE (J1650) SC SCH (08:26)
[2019-05-24] MEDS: PANTOPRAZOLE 40MG INJ (PROTONIX) (C9113) IV SCH (08:26)
[2019-05-24] MEDS: NICOTINE 21MG/24HR 1 EA TRANSDERMAL TD SCH (08:28)
--- NOTE | 2019-05-24 08:39 | IPNPDOC ---
Text Note Date of Service The patient was seen on 05/24/19. NOTE S: Yesterday, switched patient to propofol for sedation given her elevated blood pressures. BP remained elevated overnight while on 30 mcg/kg/min propofol drip. Pt very anxious and tachypneic with weaning trial yesterday, will attempt again today. Pt required acetaminophen for sore throat last night and one dose of PRN midazolam for anxiety overnight. Otherwise, no significant changes overnight. O: Physical exam VS: see below General: Pt lightly sedated and undergoing invasive mechanical ventilation, but responsive to commands, communicating through writing. HEENT: PERRLA, EOMI, mucous membranes moist, trachea midline. ET tube 22 at the lips, OG tube in place. Cardiovascular: Normal S1 and S2, no murmurs, gallops or rubs appreciated. 2+ radial and DP pulses in b/l arms and legs. Respiratory: Mild expiratory wheezes b/l. No crackles. Symmetrical chest expansion, prolonged expiration phase. Gastrointestinal: Abdomen is soft, non-tender and non-distended. Left lower abdomen with subcutaneous nodule. Extremities: 1+ pitting edema b/l LE up to the mid [place]. Skin: No rashes, bruising or petechiae noted. Neuro: lightly sedated, Tommy sedation score scale 2, follows commands and responds to questions through head motions. Labs: See below. blood cultures: neg Respiratory panel: neg Sputum culture: final result negative. Normal torsten. CXR: No acute disease, improved pulmonary congestion from yesterday, ET tube in correct position. Echocardiogram: hyperdynamic LV systolic function, LVEF 75%, grade I diastolic dysfunction. Mild mitral regurgitation. A: Pt is a 73 yo Female on day 5 of her ICU stay who was admitted to the hospital for acute on chronic hypercapnic respiratory failure, likely secondary to Acute exacerbation of COPD. Pt failed weaning trial from ventilator yesterday and today, will reattempt tomorrow, and continue with treatment of her COPD exacerbation. Currently on Day 5/ of abx therapy and 5 of corticosteroid therapy, continuing steroid taper. P: 1. Acute on chronic hypercarbic respiratory failure secondary to acute exacerbation of chronic obstructive pulmonary disorder, requiring invasive ventilation. - Continue with invasive ventilation: Volume Control, TV 370, RR 18, FiO2 35%, PEEP 5. ET tube 22cm at the lips. Titrate FiO2 to SpO2 88-92%. - attempted weaning yesterday and today but pt did not tolerate, likely secondary to anxiety vs end-stage disease. Attempting weaning trial again to day with transition to NIPPV if pt tolerates well. - Continue with propofol for sedation with sedation vacations. - PRN midazolam and fentanyl for anxiety and pain. - scheduled alprazolam 0.125mg TID scheduled for ICU related anxiety - ABG stable. - Acute respiratory failure likely secondary to COPD exacerbation from viral process, although respiratory panel negative. - blood culture with no growth - sputum culture final results with normal torsten - Continue with Duoneb q4h, Moxifloxacin 400mg QD (Day 09/16) for COPD exacerba tion. Continue tapering steroids, Methylprednisolone IV to 40mg q12h for two more days, then drop to q24hrs and continue to lower dose. 2. Acute Kidney Injury- resolved - BUN and creatinine further improved this AM, Urine output stable. - likely secondary to diuresis on admission and continued cautious approach to possible fluid overload - Discontinue IVF as pt with OG tube feedings at goal with free water. - Will continue to monitor fluid status 3. Leukocytosis - WBC remains elevated but stable, 19.9 today. - likely reactive leukocytosis secondary to recent steroid use, WBC differential without left shift. Less likely secondary to sepsis as pt without source of infection and afebrile throughout stay, Tmax 99.1. - will continue to taper steroids, and expect to see improvement of leukocytosis as steroid dose decreases. - Procalcitonin 0.40. I doubt pneumonia as blood cultures and sputum cultures are negative. UA returned without signs of UTI. Pt remains afebrile. 4. Elevated NT Pro-BNP - CXR this AM improved with less congestion compared with yesterday morning. Continue to hold IVF today, continue tube feedings and administer furosemide if needed. - NT Pro-BNP at 878 - This is possibly secondary to fluid overload, patient received 100mg of Lasix in the ED, but pt also became hypotensive after diuresis which makes fluid overload less likely. - Echocardiogram results without signs of heart failure. EF 75% without significant diastolic dysfunction. 5. elevated blood pressure - Pt's blood pressure has been steadily climbing since admission. - BP overnight ranged from 110/60s to 180/80s. Will continue to monitor - Pt's PCP is Dr. Jain, but pt notes that she does not take any blood pressure medications at home. - do not feel need to administer antihypertensives at this time, continue with propofol for sedation. 6. Troponinemia - repeated troponin as pt and son with some concerning history of chest pain/back pain - repeat troponin elevated at 0.20, but trending downward after 6 hours. - likely secondary to demand ischemia. Recommend pt receive cardiac catheteri zation in the near future. 7. OG tube feeding - Continue at 50ml/hr goal. - free water 100 mL q8hr - Continue with iron and steel work supervisor recommendation of 1 scoop of beneprotein 4x/day - hold feeding for residual >300mL 8. DVT prophylaxis with Lovenox. 9. GI Ulcer prophylaxis with pantoprazole Addendum: 24 May 2019 1325 Patient started on pressure support of 15/5, slowly weaned to PS of 8/5 and pt did reasonably well with acceptable RSBI. However, when further weaned down to PS 5/5 her RSBI was in the 150-160s, and this did not appear to be anxiety related. Placed patients ventilation back on PS of 15/5 and will maintain this overnight to reattempt weaning trial in the AM. While we do not feel that anxiety caused her to fail this weaning trial, we acknowledge her anxiety is a major contributor to her difficulties. Will increase her Xanax to 0.25mg TID, and will obtain a CT chest without contrast. We had discussions with the patient and discussed possibility of transfer to NIPPV after extubation and patient agreed to this. We also discussed the pos sibility of her failing NIPPV and asked if she would want to be reintubated in this case. Pt vigorously said yes she would want to be reintubated if she failed NIPPV after liberation from ventilator. Additionally, we had discussions with pt's granddaughter regarding her function prior to hospitalization. Granddaughter admits to the patient using accessory muscles to breath at times, doing [id number], and having difficulty walking up stairs secondary to dyspnea. This discussion reveals the pts very limited functional capacity. Critical Care time: 40 minutes not including procedures. ADDENDUM: I, Dr. Froilan Valdez, have conducted an independent examination and history of the patient and agree with the documentation. I discussed the assessment and plan with the medical student and agree with the above documentation. VSDot, I+O VSDot, I+O Laboratory Tests 05/24/19 04:36 Vital Signs Date Time Temp Pulse Resp B/P (MAP) Pulse Ox O2 Delivery O2 Flow Rate FiO2 05/24/19 08:00 98.5 97 24 164/79 (107) 93 Ventilator 35 05/20/19 12:00 45.0 I&O- Last 24 Hours up to 6 AM 05/24/19 06:00 Intake Total 1920 ml Output Total 1485 ml Balance 435 ml [facility] May 24, 2019 08:31 Arjun VALDEZ MD Jun 09, 2019 16:58
[2019-05-24] MEDS ORDERED: ALPRAZolam 0.25 MG TAB PO PRN (09:00)
[2019-05-24] MEDS ORDERED: ALPRAZolam 0.25 MG TAB PO SCH (09:00)
[2019-05-24] MEDS ORDERED: PILL CUTTER 1 EACH XX PRN (09:15)
--- NOTE | 2019-05-24 09:31 | REP ---
CHEST, SINGLE VIEW: Single view of the chest is performed and compared to a prior study of 05/23/2019. Endotracheal tube is unchanged in position with the tip between the level of the clavicles and the renetta. Nasogastric tube traverses into the stomach. No infiltrate is seen in either lung. The heart is normal in size and the mediastinal silhouette is unremarkable. Electronically Signed by Sherman Hillman MD 05/25/2019 03:10 P
[2019-05-24] MEDS: MOXIFLOXACIN HCL 400 MG in IV 1 EA IV SCH (10:22)
--- NOTE | 2019-05-24 15:07 | REP ---
CT CHEST WITHOUT CONTRAST: HISTORY: Respiratory failure. COMPARISON CHEST X-RAY: 6:[address] earlier today[address] FINDINGS: Endotracheal tube is seen in good position in the trachea terminating at the level of the transverse aorta. A nasogastric tube enters the stomach. There are small bilateral pleural effusions. No adrenal lesion is seen. There is a large cyst affecting the upper pole of the left kidney which is incompletely included in the field of view but measures at least 9.6 cm. No focal liver lesion is seen. No hilar adenopathy or mediastinal adenopathy is seen. However, there is a peripheral pleural-based opacity in the left upper lobe anteriorly which is seen involving and invading the chest wall. This is adjacent to the anterior end of the left 2nd rib. It is posterior cortex is eroded by this infiltrative mass-like lesion. There is probably some early erosion of the anterior end of the left 3rd rib as well. There is involvement of the intercostal soft tissues between the anterior 3rd and 4th ribs and between the anterior 2nd and 3rd and anterior 1st and 2nd ribs. This lesion measures 3.9 cm in medial to lateral dimension by 3.4 cm in greatest anteroposterior span by 7 cm in greatest craniocaudal span. This is best seen on sagittal multiplanar reformation scans. No other significant pulmonary parenchymal opacity is appreciated. There is a levoconvex curvature of the thoracic spine, and there are multiple osteoporotic wedge compression deformities in the thoracic spine. No focal bony destructive lesion is appreciated. There is a 9 mm nodule in the medial soft tissues of the left breast in the superomedial quadrant presternal space. There are subcutaneous nodules in the left flank measuring 1.1 cm in diameter and in the left posterior paraspinal region measuring 2.3 cm in diameter. There is an 8 mm nodule in the right breast. Lastly, there is a subcutaneous 6 mm nodule along the costal margin on the right. These are of uncertain significance. IMPRESSION: Endotracheal tube in good position. Small bilateral pleural effusions. There is an infiltrative left upper lobe lesion involving the anterior chest wall as described above suggestive of malignancy. There are scattered subcutaneous nodules of uncertain significance. Electronically Signed by Roque Walker MD 05/25/2019 05:19 A
[2019-05-24] MEDS: ALPRAZolam 0.25 MG TAB PO SCH ×2 (16:35→20:27)
[2019-05-25] VITALS (27 sets, daily range): BP systolic 118–186; BP diastolic 64–89; O2SAT 95–99
[2019-05-25] MEDS: methylPREDNISolone INJ 40 MG/1 ML VIAL (J2920) IV SCH ×2 (03:57→16:20)
[2019-05-25] MEDS: IPRATROPIUM 0.5MG/ALBUTEROL 2.5MG INH SOL UD 3ML (DUONEB)(J7620) NEB SCH ×5 (04:26→20:55)
[2019-05-25 05:02] LABS: HEMATOCRIT 40.1 % (36.0-47.0); HEMOGLOBIN 12.6 g/dl (12.0-15.5); MEAN CORPUSCULAR HGB CONC 31.4 g/dl (32.0-36.5); MEAN CORPUSCULAR VOLUME 95.5 fl (80.0-96.0); PLATELET COUNT, AUTOMATED 349 10^3/uL (150-450); WHITE BLOOD COUNT 19.3 10^3/uL (4.0-10.0)
[2019-05-25 05:24] LABS: BLOOD UREA NITROGEN 36 MG/DL (7-18); CALCIUM LEVEL 8.3 MG/DL (8.8-10.2); CARBON DIOXIDE LEVEL 29 MEQ/L (21-32); CHLORIDE LEVEL 106 MEQ/L (98-107); CREATININE FOR GFR 0.86 MG/DL (0.55-1.30); GLOMERULAR FILTRATION RATE > 60.0 (>39); GLUCOSE, FASTING 106 MG/DL (70-100); MAGNESIUM LEVEL 2.5 MG/DL (1.8-2.4); PHOSPHORUS LEVEL 3.9 MG/DL (2.5-4.9); POTASSIUM SERUM 4.7 MEQ/L (3.5-5.1); SODIUM LEVEL 143 MEQ/L (136-145)
[2019-05-25] MEDS: SLF 3 ML SYR IV SCH ×3 (05:34→20:27)
[2019-05-25 05:59] LABS: ABG BASE EXCESS 1.6 (-2.0-2.0); ABG O2 SATURATION 99.5 % (95.0-99.0); ABG PARTIAL PRESSURE O2 171.7 mmHg (75.0-100.0); ABG STANDARD HCO3 25.9 MEQ/L (22.0-26.0); ABG TOTAL CO2 27.2 MEQ/L (23.0-31.0)
[2019-05-25] MEDS: ALPRAZolam 0.25 MG TAB PO SCH ×3 (08:51→20:25)
[2019-05-25] MEDS: ENOXAPARIN 40 MG/0.4 ML SYRINGE (J1650) SC SCH (08:51)
[2019-05-25] MEDS: CHLORHEXIDINE GLUCONATE 0.12 % 15ML UDC (PERIDEX ORAL RINSE) MT SCH ×2 (08:52→20:25)
[2019-05-25] MEDS: PANTOPRAZOLE 40MG INJ (PROTONIX) (C9113) IV SCH (08:52)
[2019-05-25] MEDS: NICOTINE 21MG/24HR 1 EA TRANSDERMAL TD SCH (08:52)
[2019-05-25] MEDS: ACETAMINOPHEN 325 MG/10.15 ML UDC GT PRN (08:53)
--- NOTE | 2019-05-25 10:25 | REP ---
PORTABLE CHEST: AP portable view of the chest is performed and compared to a prior study of 05/24/2019. There is no change in the position of the endotracheal tube. Nasogastric tube traverses into the stomach. Heart is normal in size and the mediastinal silhouette is unremarkable and unchanged. The lung woods are unchanged in appearance. IMPRESSION: Stable exam. Electronically Signed by Sherman Hillman MD 05/25/2019 03:53 P
--- NOTE | 2019-05-25 16:51 | CCN ---
DATE: 05/25/2019 Ms. Valdovinos remains critically ill with acute respiratory failure leading to mechanical ventilation. It is thought that the cause of her failure is underlying severe chronic obstructive pulmonary disease (COPD). Attempts to wean her yesterday were marginally successful, as she was able to be changed to pressure support mode and be reduce to pressure support of 8 over positive end- expiratory pressure (PEEP) of 5, but she failed going any lower. This morning I again attempted to decrease her pressure support from 15, which she was kept on overnight, to 10. She was marginal on that pressure with tachypnea and rapid shallow breathing index in the mid 100s. It was clear that she was not going to tolerate going any lower and support was returned to full support with a pressure support of 15 cm H2O. Ms. Valdovinos continues to indicate that she wants to be extubated. She continues to have difficulty with anxiety, which is limiting our ability to wean her, as I suspect she air traps and has increased dyspnea, though she does not desaturate. No significant secretions. No complaints of chest pain or pressure. I pressed on her left and right chest today, and no complaints of pain. No nausea. She is tolerating full tube feeds. She offers no complaints. OBJECTIVE: PHYSICAL EXAMINATION: Ms. Valdovinos is lying in bed in no acute distress. She is anxious at times. VITAL SIGNS: Temperature 98.9, which is her maximal temperature, respiratory rate 14-18, blood pressure 186/80 with a mean arterial pressure (MAP) of 115, pulse in the 90s, SpO2 94-95% on FiO2 of 0.3. HEENT: Anicteric. Nares patent bilaterally. Oropharynx: Endotracheal (ET) tube and orogastric (OG) tube in place. NECK: Supple, without jugular venous distention (JVD), without thyromegaly or masses. Trachea is midline. LYMPHATIC: Without cervical or supraclavicular lymphadenopathy. CHEST: Increased AP diameter. LUNGS: Symmetric excursion. Generalized decreased breath sounds. There is expiratory wheezing noted, predominantly in the left upper lung region anteriorly. No crackles or rhonchi. Prolonged expiratory phase. No accessory muscle usage or retractions. CARDIOVASCULAR: Regular rate and rhythm with a normal S1, S2. No murmur, rub, or gallop appreciated. ABDOMEN: Positive bowel sounds, soft, nontender. No hepatosplenomegaly or masses appreciated. EXTREMITIES: Warm and well-perfused without clubbing, cyanosis, or significant edema. Palpable pedal pulses bilaterally. LABORATORY DATA: CBC from this morning showed a hemoglobin 12.6, hematocrit 40.1, platelet count 349,000, white blood cell count 19,300. Chemistry showed sodium 143, potassium 4.7, chloride 106, bicarbonate 29, anion gap 8, BUN 36, creatinine 0.9, glucose 106, calcium 8.3, phosphorus 3.9, magnesium 2.5. Arterial blood gas from this morning on pressure support 15 cm H2O and PEEP of 5 cm H2O with an FiO2 of 0.35 was 7.43/40/172 with a measured saturation of 99.5%. Base excess was 1.6. I reviewed her chest x-ray as well as report from earlier today. That x-ray showed normal-appearing cardiac silhouette and pulmonary vascular shadows. Normal-appearing mediastinal and hilar regions. No consolidated regions. ET tube is in good position. I also had reviewed her chest CT scan as well as the report from 05/24/2019. That CT scan showed normal-appearing cardiac silhouette, pulmonary vascular shadows. No mediastinal or hilar adenopathy. There are emphysematous changes bilaterally. There is a large left upper lobe pleural-based mass that is invading the ribs and chest wall as well as satellite lesion in the left upper lobe. The mass measured at 3.9 cm x 3.4 cm x 7 cm. In addition to the pulmonary findings, there is a 9 mm nodule in the left breast as well as there is an 8 mm nodule in the right breast. There are subcutaneous nodules in the left flank and the left paraspinal region. IMPRESSION: 1. Acute respiratory failure leading to mechanical ventilation that is felt secondary to chronic obstructive pulmonary disease (COPD). It is felt based on her lung mechanics that she has an obstructive process. Obstructive process is most suspicious for COPD. 2.. Abnormal chest CT scan with left upper lobe mass as well as bilateral breast masses. The left upper lobe mass is eroding into the chest wall and is very concerning for a primary lung cancer. I am uncertain as to the significance of the bilateral breast nodules. 3. Obstructive lung process, likely severe or possibly end-stage COPD at baseline. History obtained from her granddaughter yesterday is that she has supraclavicular muscle usage as well as pursed-lip breathing and significant dyspnea at baseline. She is on systemic corticosteroids as well as bronchodilators. 4. Anxiety. She has been started on Xanax, which has helped her anxiety, but she still becomes tachypneic when stressed and tachypneic at any time we attempt to alter the mechanical ventilation settings. 5. Deep vein thrombosis (DVT) prophylaxis with enoxaparin. 6. Stress ulcer prophylaxis with proton pump inhibitor. 7. Nutrition: On full tube feeds. RECOMMENDATIONS: 1. I again discussed with Ms. Valdovinos that we have significant difficulty weaning her. I discussed with her that she may not be "weanable," or it may take a prolonged period of time. 2. I discussed with her that we will continue to try every day but that at some point if her ability to come off the ventilator is marginal and she is adamant that she would want to be reintubated if it did not go well, that it may be safer to go to a tracheostomy, where we can more slowly wean her and also more safely remove her from the ventilator and see how she does. She indicates to me that she would accept a tracheostomy. 3. However,, she also indicates that if she has a tracheostomy and we cannot get her off the ventilator, that she does not want to have to go to a facility that takes mechanical ventilators. 4. I showed Ms. Valdovinos her chest CT scan and the abnormal findings. I discussed with her that the left upper lobe finding is concerning for a lung cancer, but that we need tissue to say that definitively. I asked her if she would be interested in chemotherapy or immunotherapy if she is not an operative candidate, and she indicated yes. 5. I discussed with that we will try to wean her tomorrow, but if not we would try to arrange for a percutaneous needle biopsy on Monday. That should be able to be done on the ventilator. In fact, we could sedate her and do a breath hold to make it even easier, but I also discussed with her I am not certain whether or not radiology would be comfortable doing that on a ventilated patient. Hopefully she will be extubated and that will not be an issue. 6. I also discussed with her that I do not know the significance of the breast findings. I will talk to radiology on Monday to get their guidance, and if they feel they should be biopsied, we will either make arrangements for that or contact the appropriate service. 7. At the present time, we will continue her current support. CRITICAL CARE TIME: 40 minutes, not including procedure time. OLY
[2019-05-25] MEDS: propofoL 1,000 MG in IV 1 EA IV SCH (17:38)
[2019-05-26] VITALS (16 sets, daily range): BP systolic 107–161; BP diastolic 57–79; O2SAT 93–96
[2019-05-26] MEDS: MORPHINE 2 MG/ML 1ML VIAL (J2270) IV PRN
[2019-05-26] MEDS: IPRATROPIUM 0.5MG/ALBUTEROL 2.5MG INH SOL UD 3ML (DUONEB)(J7620) NEB SCH ×6 (00:21→20:20)
[2019-05-26 05:02] LABS: HEMATOCRIT 39.5 % (36.0-47.0); HEMOGLOBIN 12.5 g/dl (12.0-15.5); MEAN CORPUSCULAR HGB CONC 31.6 g/dl (32.0-36.5); PLATELET COUNT, AUTOMATED 317 10^3/uL (150-450); RED BLOOD COUNT 4.16 10^6/uL (4.00-5.40); WHITE BLOOD COUNT 20.4 10^3/uL (4.0-10.0)
[2019-05-26] MEDS: methylPREDNISolone INJ 40 MG/1 ML VIAL (J2920) IV SCH (05:22)
[2019-05-26 05:26] LABS: BLOOD UREA NITROGEN 33 MG/DL (7-18); CALCIUM LEVEL 8.2 MG/DL (8.8-10.2); CARBON DIOXIDE LEVEL 30 MEQ/L (21-32); CHLORIDE LEVEL 104 MEQ/L (98-107); CREATININE FOR GFR 0.67 MG/DL (0.55-1.30); GLOMERULAR FILTRATION RATE > 60.0 (>39); GLUCOSE, FASTING 88 MG/DL (70-100); MAGNESIUM LEVEL 2.4 MG/DL (1.8-2.4); PHOSPHORUS LEVEL 4.4 MG/DL (2.5-4.9); POTASSIUM SERUM 5.4 MEQ/L (3.5-5.1); SODIUM LEVEL 142 MEQ/L (136-145)
[2019-05-26 05:32] LABS: ABG BASE EXCESS 4.6 (-2.0-2.0); ABG HCO3 29.9 MEQ/L (22.0-26.0); ABG O2 SATURATION 94.3 % (95.0-99.0); ABG PARTIAL PRESSURE CO2 46.8 mmHg (35.0-45.0); ABG PARTIAL PRESSURE O2 71.4 mmHg (75.0-100.0); ABG STANDARD HCO3 28.5 MEQ/L (22.0-26.0); ABG TOTAL CO2 31.3 MEQ/L (23.0-31.0); ABG pH (ARTERIAL) 7.423 UNITS (7.350-7.450)
[2019-05-26] MEDS: SLF 3 ML SYR IV SCH ×3 (06:26→22:11)
[2019-05-26 06:44] LABS: ALBUMIN 2.3 GM/DL (3.2-5.2); ALT/SGPT 76 U/L (12-78); BILIRUBIN,TOTAL 0.4 MG/DL (0.2-1.0); BLOOD UREA NITROGEN 33 MG/DL (7-18); CALCIUM LEVEL 8.4 MG/DL (8.8-10.2); CARBON DIOXIDE LEVEL 31 MEQ/L (21-32); CHLORIDE LEVEL 104 MEQ/L (98-107); GLOMERULAR FILTRATION RATE > 60.0 (>39); GLUCOSE, FASTING 98 MG/DL (70-100); POTASSIUM SERUM 4.5 MEQ/L (3.5-5.1); SODIUM LEVEL 143 MEQ/L (136-145); TOTAL PROTEIN 5.4 GM/DL (6.4-8.2)
[2019-05-26] MEDS: propofoL 1,000 MG in IV 1 EA IV SCH (08:17)
[2019-05-26] MEDS: ALPRAZolam 0.25 MG TAB PO SCH ×3 (08:18→20:23)
[2019-05-26] MEDS: CHLORHEXIDINE GLUCONATE 0.12 % 15ML UDC (PERIDEX ORAL RINSE) MT SCH ×2 (08:18→20:23)
[2019-05-26] MEDS: NICOTINE 21MG/24HR 1 EA TRANSDERMAL TD SCH (08:19)
[2019-05-26] MEDS: PANTOPRAZOLE 40MG INJ (PROTONIX) (C9113) IV SCH (08:20)
[2019-05-26] MEDS: ENOXAPARIN 40 MG/0.4 ML SYRINGE (J1650) SC SCH (08:20)
--- NOTE | 2019-05-26 10:05 | REP ---
CHEST, SINGLE VIEW: Single view of the chest was performed. Comparison 05/25/2019. Endotracheal tube is unchanged in position. Nasogastric tube traverses into the stomach. Heart is normal in size and the mediastinal silhouette is unchanged. Lungs are unchanged in appearance. IMPRESSION: Stable exam. Electronically Signed by Sherman Hillman MD 05/26/2019 10:32 A
[2019-05-27] VITALS (26 sets, daily range): BP systolic 110–162; BP diastolic 56–74; O2SAT 96–97
[2019-05-27] MEDS: IPRATROPIUM 0.5MG/ALBUTEROL 2.5MG INH SOL UD 3ML (DUONEB)(J7620) NEB SCH ×6 (01:04→20:02)
[2019-05-27] MEDS: propofoL 1,000 MG in IV 1 EA IV SCH ×2 (01:58→17:14)
[2019-05-27 05:02] LABS: HEMATOCRIT 38.8 % (36.0-47.0); HEMOGLOBIN 12.2 g/dl (12.0-15.5); MEAN CORPUSCULAR HEMOGLOBIN 29.9 pg (27.0-33.0); MEAN CORPUSCULAR HGB CONC 31.4 g/dl (32.0-36.5); MEAN CORPUSCULAR VOLUME 95.1 fl (80.0-96.0); PLATELET COUNT, AUTOMATED 289 10^3/uL (150-450); RED BLOOD COUNT 4.08 10^6/uL (4.00-5.40); WHITE BLOOD COUNT 18.9 10^3/uL (4.0-10.0)
[2019-05-27 05:14] LABS: INR 1.01
[2019-05-27 05:32] LABS: ALBUMIN 1.9 GM/DL (3.2-5.2); BLOOD UREA NITROGEN 37 MG/DL (7-18); CALCIUM LEVEL 8.1 MG/DL (8.8-10.2); CARBON DIOXIDE LEVEL 31 MEQ/L (21-32); CHLORIDE LEVEL 103 MEQ/L (98-107); CREATININE FOR GFR 0.71 MG/DL (0.55-1.30); GLOMERULAR FILTRATION RATE > 60.0 (>39); GLUCOSE, FASTING 103 MG/DL (70-100); PHOSPHORUS LEVEL 3.7 MG/DL (2.5-4.9); POTASSIUM SERUM 4.1 MEQ/L (3.5-5.1); SODIUM LEVEL 141 MEQ/L (136-145)
[2019-05-27] MEDS: SLF 3 ML SYR IV SCH ×3 (06:23→21:09)
--- NOTE | 2019-05-27 07:03 | CCN ---
DATE: 05/26/2019 NOTE: Ms. Valdovinos remains critically ill with acute hypercapnic respiratory failure. She remains on the ventilator. Attempts again today to wean her were unsuccessful. She appeared relaxed and in fact some of the weaning attempts were made while she was sleeping to try to take anxiety out of the equation. Despite this, she remained with a rapid shallow breathing pattern that would not predict success. With the slightest stimulation she became more tachypneic and more shallow with a respiratory rate jumping into the 40s. No hemodynamic events overnight. OBJECTIVE: PHYSICAL EXAMINATION: GENERAL: Ms. Valdovinos is lying in bed, intubated, synchronous with the ventilator. When she is awake she is following commands and other than indicating a sore throat at times, she does not indicate any discomfort. VITAL SIGNS: Temperature 98.1 with a T-max of 98.7, respiratory rate in the 20s when resting. Blood pressure 160/77 with a MAP of 104, SPO2 93% on FIO2 of 0.35. HEENT: Anicteric, PERRL. Nares: Patent bilaterally. Oropharynx ET tube and OG tube in place. NECK: Supple, without JVD, thyromegaly or masses, trachea is midline. LYMPH: Without cervical or supraclavicular lymphadenopathy. LUNGS: Diminished air entry, no rhonchi or crackle. Occasional expiratory wheeze predominantly in the left anterior upper lung region. Prolonged expiratory phase. When she becomes more tachypneic, she has abdominal accessory muscle usage but not at baseline. No supraclavicular accessory muscle usage. CARDIOVASCULAR: Regular rate and rhythm with a normal S1-S2, no murmur or gallop appreciated. ABDOMEN: Positive bowel sounds, generalized abdominal tenderness, no rebound or guarding. No hepatosplenomegaly or masses appreciated. EXTREMITIES: Without clubbing, cyanosis, edema. Palpable pedal pulses bilaterally. NEUROLOGIC: No focal deficits. PSYCHIATRIC: Anxious demeanor. LABORATORY DATA: CBC from this morning showed a hemoglobin 12.5, hematocrit 39.5, platelet count 317,000, white blood cell count 20,400. Chemistries show sodium 143, potassium 4.5, chloride 104, bicarbonate 31, anion gap 8, BUN 33, creatinine 0.8, glucose 98, calcium 8.4, total bilirubin 0.4, AST 14, ALT 76, alkaline phosphatase 79, total protein, 5.4, albumin 2.3. Arterial blood gas on a pressure support of 15, PEEP of 5, and FIO2 of 0.35 was 7.42/47/71 with a measured saturation 94% and a base excess of 4.6. Yesterday's intake and output showed 1379 in and 1300 out making her positive 79. Thus far today she is 1322 in and 1590 out making her negative 268. I reviewed her chest x-ray as well as report from earlier today. That x-ray showed normal-appearing cardiac silhouette and pulmonary vascular shadows. Normal-appearing mediastinal and hilar region. Chronic changes. No consolidated regions. ET tube is in good position. IMPRESSION: 1. Acute hypercapnic respiratory failure leading to mechanical ventilation felt secondary to chronic obstructive pulmonary disease (COPD), though it is not clear it is an exacerbation. Unable to wean at this time. 2. Abnormal chest CT scan with left upper lobe mass as well as bilateral breast nodules. The left upper lobe mass is eroding into the chest wall and is very concerning for a primary lung cancer with perhaps some metastatic breast process if those are indeed malignancies. 3. Obstructive lung process, likely severe, possibly end-stage. 4. Anxiety. 5. DVT prophylaxis with enoxaparin. 6. Stress ulcer prophylaxis with proton pump inhibitor. 7. Nutrition: On full tube feeds. RECOMMENDATIONS: 1. I again confirmed this morning with Ms. Valdovinos that she wants to be a FULL CODE and wants to go on to a tracheostomy if necessary 2. At this point, she has now been intubated for a week and no significant progress has been made toward weaning her off the ventilator. I will ask ENT to see her tomorrow for consideration of tracheostomy later in the week. 3. Will continue weaning trials every day. 4. Will obtain ultrasounds of each of the breasts, hopefully tomorrow. If they are concerning will then consult the breast surgeon for consideration of biopsy. 5. I will also ask radiology to biopsy her left upper lobe mass percutaneously. We will be able to sedate her on the vent. In doing so, we will need to change her to a controlled modality. We could also do a breath hold if desired during the biopsy procedure. Hopefully, that will also be done tomorrow. It is going to be important to get this information so that Mr. Valdovinos and her family can make informed decisions. 6. Will continue other supportive care. ADDENDUM: I had a lengthy discussion this afternoon with her son, Jagdish who is her healthcare proxy in the presence of Ms. Valdovinos. I showed him the chest CT scan and the concerning findings. I also reviewed her inability to make any significant progress toward weaning. I discussed with them that I will ask ENT to evaluate for tracheostomy. I discussed with the that tracheostomies are reversible if she is able to be weaned and perhaps with that modality we will be able to be more aggressive as we can quickly reattach her to the ventilator if need be. I also discussed with him it is possible that even with a change to tracheostomy that we may not be able to wean her or it may be a slow wean, which would typically occur at a chronic ventilatory facility. I reviewed the reasons for the above procedures. Hopefully, if we get the procedures done, we can move forward with what the process is in the left upper lobe, as well as to determine whether the findings in the breasts are of concern. They understand that I will discuss this with radiology tomorrow. The ultrasound should be able to be done, thought I am not as certain about the biopsy. I answered multiple questions for her son. He kept saying what he wanted and I kept refocusing him that it is what she wants, and I also discussed with him that she is lucid and that we will respect any decisions that she makes, and that she is directing the service and the healthcare proxy is used when she is unable to make decisions. He continuing to struggle with the diagnoses and understanding of lung disease. He told me that she had been told 5 years ago that she has COPD though no testing was done. He also notes a friend of the family has had a lung transplant and I explained why she was not a candidate for that procedure. He did not understand why she could not have tracheostomy, be on a ventilator and stay indefinitely locally, and I explained the reason behind that, including that for her benefit, if we are unable to wean her, the vent facilities are better at these slow weans. He continues to struggle with her overall diagnoses and the difficulty that we are having in being able to get her off the ventilator as well as the findings on the chest CT scan. We will continue to discuss this further and help him understand her situation. Incidentally, during this discussion, we were able to clarify with Ms. Valdovinos that she did have a mammogram 5 years ago, and that she has never had other screening studies such as colonoscopy. Critical care time 50 minutes, not including procedure time. OLY
[2019-05-27] MEDS: CHLORHEXIDINE GLUCONATE 0.12 % 15ML UDC (PERIDEX ORAL RINSE) MT SCH ×2 (08:38→21:09)
[2019-05-27] MEDS: NICOTINE 21MG/24HR 1 EA TRANSDERMAL TD SCH (08:38)
[2019-05-27] MEDS: PANTOPRAZOLE 40MG INJ (PROTONIX) (C9113) IV SCH (08:39)
[2019-05-27] MEDS: ALPRAZolam 0.25 MG TAB PO SCH ×3 (08:39→21:09)
[2019-05-27] MEDS: ENOXAPARIN 40 MG/0.4 ML SYRINGE (J1650) SC SCH (08:52)
--- NOTE | 2019-05-27 10:00 | REP ---
Portable chest x-ray: Single view. History: Intubated patient. Comparison: May 26, 2019. Findings: Oxygen delivery tubing and monitoring electrodes are seen. Endotracheal tube is in good position. NG tube enters left upper quadrant. Pulmonary vasculature is not increased. Pleural angles are sharp. Impression: No new infiltrate. Electronically Signed by Roque Walker MD 05/27/2019 02:46 P
--- NOTE | 2019-05-27 10:07 | REP ---
Soft-tissue ultrasound left hip region. History: Intubated patient. Left lung mass. Subcutaneous nodules. Findings: Soft tissue sonography over the palpable lump of the left fifth hip region demonstrates a 1.3 x 1.3 x 0.9 centimeter hypoechoic solid appearing nodule with internal Doppler of the vasculature. There is some enhanced through transmission. This is in the subcutaneous fat. Margins are somewhat lobular. Impression: Solid subcutaneous nodule. This could be a soft tissue metastasis. Electronically Signed by Roque Walker MD 05/27/2019 09:59 A
--- NOTE | 2019-05-27 11:17 | REP ---
PARASTERNAL LEFT CHEST WALL ULTRASOUND: HISTORY: Chest wall invasive mass on chest CT study. Evaluation for feasibility of ultrasound-guided needle biopsy. FINDINGS: There is a complex hypoechoic lesion in the left chest protruding anteriorly from the intercostal space in the left parasternal region measuring 2.2 x 2.6 x 1.9 cm. There is some internal vascularity. Separate from this in the left lateral flank subcutaneous region. There is a 1.2 x 1.1 x 1.0 cm hypoechoic area in the subdermal subcutaneous space. This may be a sebaceous cyst. It has peripheral flow. IMPRESSION: Left anterior parasternal chest wall mass, should be amendable to percutaneous ultrasound-guided needle biopsy if desired. Electronically Signed by Roque Walker MD 05/27/2019 02:48 P
[2019-05-27] MEDS ORDERED: LIDOCAINE 1% MDV 20ML VIAL As Ordered ONE (13:57)
[2019-05-27] MEDS: methylPREDNISolone INJ 40 MG/1 ML VIAL (J2920) IV SCH (14:02)
--- NOTE | 2019-05-27 19:05 | REP ---
Ultrasound-guided the left lung/anterior chest wall and left lower abdominal mass biopsy This procedure was performed by YONAS Bryant, under the direct supervision of Dr. Walker. The risks and the benefits of the procedure were explained to the patient and informed consent was obtained both verbally and written. Directly prior to the start of the procedure, a formal time out was completed in the procedure room. The left lung/anterior chest wall mass was localized using ultrasound guidance. The skin was prepped and draped in a sterile fashion. 5 ml of 1% lidocaine 10 mg/ml was used as a local anesthetic. Using ultrasound guidance a 19/20 gauge coaxial needle biopsy system was inserted and advanced to the left lung/anterior chest wall mass. 6 core biopsy samples were obtained and sent to the lab for further analysis. The left lower abdomen mass was localized using ultrasound guidance. The skin was prepped and draped in a sterile fashion. 2 ml of 1% lidocaine 10 mg/ml was used as a local anesthetic. Using ultrasound guidance a 19/20 gauge coaxial needle biopsy system was inserted and advanced to the lower abdomen mass. 8 core biopsy samples were obtained and sent to the lab for further analysis. The patient tolerated the procedure well and there were no immediate complications. After the appropriate amount of monitored convalescence the patient was discharged from the department. Reviewed by YONAS Bryant 05/27/2019 04:14 P Electronically Signed by Roque Walker MD 05/27/2019 06:55 P
--- NOTE | 2019-05-27 23:39 | CCN ---
DATE: 05/27/2019 CRITICAL CARE NOTE NOTE: Ms. Valdovinos remains critically ill with acute hypercapnic respiratory failure. We have been unable to wean her off the ventilator, including this morning. Even again today in reviewing the plan, her respiratory rate jumped into the 50s. No hemodynamic events overnight. I spoke this morning with Dr. Walker regarding assessment of her left upper lobe mass. She also has a left hip subcutaneous lesion. After discussion, it was decided to first obtain an ultrasound of these lesions. If they were seen by ultrasound, it was felt best to the biopsy bedside. The ultrasound showed that they could see both lesions, and I requested that they both be biopsied. I do not believe she was able to go down for the ultrasound of her breast to evaluate the nodules because of the timing today. OBJECTIVE: PHYSICAL EXAMINATION: General: Ms. Valdovinos is lying in bed, no acute distress. She is communicating by either writing notes or trying to write letters with her fingers. She indicates no discomfort. When the plan was explained to her, she gave us the okay signal. Vital signs: Temperature 98 with a maximum temperature (T max) of 98.6, pulse 96, respiratory rate 32, blood pressure 124/65 with a mean arterial pressure (MAP) of 84, SPO2 95% on an FiO2 of 0.35. HEENT: Anicteric. Nares: Patent bilaterally. Oropharynx: Endotracheal (ET) tube and orogastric (OG) tube in place. Neck: Supple without jugular venous distention (JVD), without thyromegaly or masses, trachea is midline. Lymph: Without cervical or supraclavicular lymphadenopathy. Lungs: Symmetric excursion, generalized diminished air entry. No rhonchi or crackle on tidal excursion. Occasional end-expiratory wheeze heard. Prolonged expiratory phase. No accessory muscle usage or retractions. Cardiovascular: Regular rate and rhythm with a normal S1, S2, no murmur, rub, or gallop appreciated. Abdomen: Normoactive bowel sounds, soft, nondistended, nontender, no hepatosplenomegaly or masses appreciated. Extremities: Warm and well perfused, without clubbing, cyanosis or edema, palpable pedal pulses bilaterally. Skin: There is a palpable subcutaneous lesion that he is movable above the left hip. It is relatively firm in character. IMPRESSION: 1. Acute hypercapnic respiratory failure leading to mechanical ventilation, felt secondary to chronic obstructive pulmonary disease (COPD), though it is not clear it is an exacerbation. We continue to be unable to wean her. 2. Abnormal chest CT scan with left upper lobe mass as well as bilateral breast nodules and a subcutaneous nodule near the left hip. The left upper lobe lung mass and hip nodule were biopsied today. 3. Obstructive lung process, likely severe. 4. Anxiety. 5. Deep vein thrombosis (DVT) prophylaxis - enoxaparin. 6. Stress ulcer prophylaxis - proton pump inhibitor. 7. Nutrition, tolerating full tube feeds. RECOMMENDATIONS: 1. We await the biopsy results. 2. Will continue supportive care. I changed her to volume control method today for the procedures to allow sedation if needed. 3. Will keep her on the volume control method night and again try weaning tomorrow. 4. If she is not successful, then we will consult Ears, Nose and Throat (ENT) with hopes of tracheostomy later this week. 5. We still need to obtain the ultrasound of the breast to determine whether those nodules are of any concern. Critical care time: 35 minutes not including procedure time. RAYD
[2019-05-28] VITALS (27 sets, daily range): BP systolic 100–203; BP diastolic 54–91; O2SAT 96
[2019-05-28] MEDS: IPRATROPIUM 0.5MG/ALBUTEROL 2.5MG INH SOL UD 3ML (DUONEB)(J7620) NEB SCH ×7 (00:02→23:52)
[2019-05-28] MEDS: ACETAMINOPHEN 325 MG/10.15 ML UDC GT PRN (00:48)
[2019-05-28] MEDS: SLF 3 ML SYR IV SCH ×3 (05:41→21:05)
[2019-05-28] MEDS: propofoL 1,000 MG in IV 1 EA IV SCH ×2 (05:41→21:06)
[2019-05-28 05:48] LABS: HEMATOCRIT 39.4 % (36.0-47.0); HEMOGLOBIN 12.1 g/dl (12.0-15.5); MEAN CORPUSCULAR HEMOGLOBIN 29.4 pg (27.0-33.0); MEAN CORPUSCULAR HGB CONC 30.7 g/dl (32.0-36.5); MEAN CORPUSCULAR VOLUME 95.6 fl (80.0-96.0); PLATELET COUNT, AUTOMATED 259 10^3/uL (150-450); RED BLOOD COUNT 4.12 10^6/uL (4.00-5.40); WHITE BLOOD COUNT 22.4 10^3/uL (4.0-10.0)
[2019-05-28 06:18] LABS: ALBUMIN 1.9 GM/DL (3.2-5.2); BLOOD UREA NITROGEN 37 MG/DL (7-18); CALCIUM LEVEL 8.2 MG/DL (8.8-10.2); CARBON DIOXIDE LEVEL 29 MEQ/L (21-32); CHLORIDE LEVEL 103 MEQ/L (98-107); CREATININE FOR GFR 0.73 MG/DL (0.55-1.30); GLOMERULAR FILTRATION RATE > 60.0 (>39); GLUCOSE, FASTING 100 MG/DL (70-100); PHOSPHORUS LEVEL 3.9 MG/DL (2.5-4.9); POTASSIUM SERUM 4.4 MEQ/L (3.5-5.1); SODIUM LEVEL 139 MEQ/L (136-145)
--- NOTE | 2019-05-28 08:07 | REP ---
Portable chest x-ray: Single view. History: Intubated patient. Comparison study: May 27, 2019. Findings: Nasogastric tube enters left upper quadrant. Endotracheal tube remains in good position at the level of the transverse aorta. Monitoring electrodes and oxygen delivery tubing are seen. There is no evidence of pneumothorax or hydrothorax. No new infiltrate is seen. Heart is not enlarged. Electronically Signed by Roque Walker MD 05/28/2019 07:59 A
[2019-05-28] MEDS: NICOTINE 21MG/24HR 1 EA TRANSDERMAL TD SCH (08:58)
[2019-05-28] MEDS: ALPRAZolam 0.25 MG TAB PO SCH ×3 (08:58→21:05)
[2019-05-28] MEDS: PANTOPRAZOLE 40MG INJ (PROTONIX) (C9113) IV SCH (08:58)
[2019-05-28] MEDS: CHLORHEXIDINE GLUCONATE 0.12 % 15ML UDC (PERIDEX ORAL RINSE) MT SCH ×2 (08:58→21:05)
[2019-05-28] MEDS: ENOXAPARIN 40 MG/0.4 ML SYRINGE (J1650) SC SCH (08:59)
[2019-05-28] MEDS: methylPREDNISolone INJ 40 MG/1 ML VIAL (J2920) IV SCH (10:42)
--- NOTE | 2019-05-28 11:04 | IPNPDOC ---
Text Note Date of Service The patient was seen on 05/28/19. NOTE Pt had US guided biopsies of her L lung mass and L hip nodule yesterday after noon, awaiting pathology results. B/l breast US to evaluated breast nodules not obtained yesterday due to timing difficulties, scheduled for later today. Pt on Pressure support/CPAP again today and we will consult ENT regarding tracheostomy placement if patient does not pass weaning trial today. S: Pt had no overnight events on PRVC ventilator mode, TV 370, RR 15, FiO2 35%, PEEP 5. Pt with no complaints, tolerated biopsy procedures well yesterday. She is not complaining of any pain at this time, but is still nervous and anxious regarding biopsy results. O: Physical exam: VS: See below General: Pt is a pleasant elderly female undergoing invasive ventilation, but awake and alert, communicating through pen and paper, not in any distress or pain. HEENT: Mucous membranes moist, OG tube in place, ET tube 22 cm at the lip. Neck: no cervical lymphadenopathy, thyromegaly, or JVD. CV: Heart regular rate and rhythm, occasional PVC on monitor. Normal S1 and S2, no rubs or gallops appreciated. Lungs: Prolonged expiratory phase, diminished breath sounds throughout lung woods, occasional scattered expiratory wheezes. No rhonchi or crackles appreciated. Abdomen: Soft, non-distended and non-tender to palpation. Small firm subcutaneous nodule overlying L ASIS. Extremities: No pedal edema, 2+ pulses b/l upper and lower extremities. Normal capillary refill. Neuro: Lightly sedated, but awake, alert and oriented. Asking pertinent questions. Good fine motor skills. Impression: 1. Acute hypercapnic respiratory failure requiring mechanical ventilation. Likely secondary to COPD, unclear if exacerbation. Continued attempts to wean patient from ventilator daily. 2. Abnormal Chest CT scan with L upper lobe mass invading chest wall, b/l breast nodules. L hip subcutaneous nodule found on exam. Chest and Hip nodules biopsied yesterday. 3. Obstructive lung process, likely severe. 4. Anxiety 5. DVT ppx - enoxaparin 6. Stress ulcer ppx - pantoprazole 7. Nutrition - tolerating OG tube feeds at goal rate. Plan: 1. Awaiting biopsy results. 2. Awaiting B/l Breast US results. 3. Continuing supportive care. We changed patient's ventilator settings back to pressure support/CPAP today at 10 and will continue to wean as tolerated. Plan to transfer patient back to volume control settings for Breast US later today. 4. 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 5. Continuing scheduled alprazolam for patients Anxiety. Critical Care Time: 40 minutes, not including procedure time. ADDENDUM: I, Dr. Froilan Valdez, have conducted an independent examination and history of the patient and agree with the documentation. I discussed the assessment and plan with the medical student and agree with the above documentation. VS,Fishbone, I+O VS, Fishbone, I+O Laboratory Tests 05/28/19 05:24 Vital Signs Date Time Temp Pulse Resp B/P (MAP) Pulse Ox O2 Delivery O2 Flow Rate FiO2 05/28/19 09:00 90 21 124/67 (86) 97 Ventilator 35 05/28/19 08:00 97.9 I&O- Last 24 Hours up to 6 AM 05/28/19 06:00 Intake Total 1758.8 ml Output Total 1075 ml Balance 683.8 ml [facility] May 28, 2019 11:04 Arjun VALDEZ MD Jun 09, 2019 17:10
[2019-05-28] MEDS: MORPHINE 2 MG/ML 1ML VIAL (J2270) IV PRN (11:14)
--- NOTE | 2019-05-28 15:55 | HPE ---
DATE OF ADMISSION: 05/20/2019 Shruthi Valdovinos is a 73-year-old lady who presents with a history of respiratory distress. The patient has been intubated, ventilated and has not been able to get off the ventilator. She is almost 10 days now. Consideration given for a tracheotomy. The patient apparently has stage IV cancer. There is a question whether the family wants to proceed with aggressive management at this time. Examination shows her neck is nice and soft supple. IMPRESSION: I am not sure the value of a tracheotomy. I did talk to the patient with the nurse. I think we will delay any tracheotomy until after we have the results of the biopsies.
--- NOTE | 2019-05-28 19:03 | REP ---
Focused bilateral breast sonography: History: Nodule seen on CT study from May 24, 2019. There is a small nodule on chest CT in the approximate 12 o'clock position of the right breast and in the left parasternal region on CT. Sonographic findings: Scanning in the subcutaneous soft tissues just to the left of the sternum demonstrates a solid hypoechoic well-circumscribed nodule measuring 0.8 x 0.7 x 0.9 cm corresponding to the CT findings. In the right breast at approximately 12 o'clock there is a similar appearing heterogeneously hypoechoic solid nodule a little less superficially positioned. This measures 0.8 x 0.7 x 0.7 cm. No internal blood flow is seen in either of these. Impression: The nodules visible on CT study are solid nodules sonographically. They are rounded and fairly well circumscribed, similar to the subcutaneous nodule biopsied yesterday under ultrasound guidance in the left anterior abdominal wall/hip region, suggesting soft tissue metastatic nodules . Electronically Signed by Roque Walker MD 05/29/2019 08:10 A
[2019-05-29] VITALS (25 sets, daily range): BP systolic 96–157; BP diastolic 50–75; O2SAT 97
[2019-05-29] MEDS: IPRATROPIUM 0.5MG/ALBUTEROL 2.5MG INH SOL UD 3ML (DUONEB)(J7620) NEB SCH ×6 (04:30→23:32)
[2019-05-29 05:19] LABS: HEMATOCRIT 36.9 % (36.0-47.0); HEMOGLOBIN 11.6 g/dl (12.0-15.5); MEAN CORPUSCULAR HEMOGLOBIN 30.4 pg (27.0-33.0); MEAN CORPUSCULAR HGB CONC 31.4 g/dl (32.0-36.5); MEAN CORPUSCULAR VOLUME 96.9 fl (80.0-96.0); PLATELET COUNT, AUTOMATED 290 10^3/uL (150-450); RED BLOOD COUNT 3.81 10^6/uL (4.00-5.40); WHITE BLOOD COUNT 18.9 10^3/uL (4.0-10.0)
[2019-05-29] MEDS: SLF 3 ML SYR IV SCH ×3 (05:22→21:17)
[2019-05-29 05:44] LABS: BLOOD UREA NITROGEN 38 MG/DL (7-18); CALCIUM LEVEL 8.2 MG/DL (8.8-10.2); CARBON DIOXIDE LEVEL 33 MEQ/L (21-32); CHLORIDE LEVEL 102 MEQ/L (98-107); CREATININE FOR GFR 0.66 MG/DL (0.55-1.30); GLOMERULAR FILTRATION RATE > 60.0 (>39); GLUCOSE, FASTING 100 MG/DL (70-100); PHOSPHORUS LEVEL 3.2 MG/DL (2.5-4.9); POTASSIUM SERUM 3.9 MEQ/L (3.5-5.1); SODIUM LEVEL 139 MEQ/L (136-145)
[2019-05-29] MEDS: ALPRAZolam 0.25 MG TAB PO SCH ×3 (08:20→21:16)
[2019-05-29] MEDS: PANTOPRAZOLE 40MG INJ (PROTONIX) (C9113) IV SCH (08:20)
[2019-05-29] MEDS: ACETAMINOPHEN 325 MG/10.15 ML UDC GT PRN (08:20)
[2019-05-29] MEDS: ENOXAPARIN 40 MG/0.4 ML SYRINGE (J1650) SC SCH (08:20)
[2019-05-29] MEDS: NICOTINE 21MG/24HR 1 EA TRANSDERMAL TD SCH (08:20)
[2019-05-29] MEDS: CHLORHEXIDINE GLUCONATE 0.12 % 15ML UDC (PERIDEX ORAL RINSE) MT SCH ×2 (08:21→21:16)
--- NOTE | 2019-05-29 08:21 | REP ---
Portable chest x-ray: Single view. History: Intubated patient. Comparison study: May 28, 2019. Findings: Endotracheal tube remains in good position at the level of the transverse aorta. NG tube enters left upper quadrant. The lungs are symmetrically aerated and free of new infiltrate. Cardiomediastinal silhouette is unremarkable. Pulmonary vasculature is not increased. Impression: No new infiltrate. Electronically Signed by Roque Walker MD 05/29/2019 08:13 A
[2019-05-29] MEDS: methylPREDNISolone INJ 40 MG/1 ML VIAL (J2920) IV SCH (11:15)
--- NOTE | 2019-05-29 12:02 | IPNPDOC ---
Text Note Date of Service The patient was seen on 05/29/19. NOTE Pt is a 73 yo Female who was admitted to the hospital for acute hypercapnic r espiratory failure requiring ventilator support. Two days ago, pt had biopsy of her L lung mass and L hip nodule. Yesterday, pt underwent ultrasound of her b/l breast nodules. The preliminary biopsy results look to be malignant in nature, and the L hip/abdomen nodule is consistent with the L lung mass. The ultrasound results of the breast nodules showed similar characteristics to the L hip/abdomen nodules, and are likely metastatic. Final biopsy results with tumor markers pending and should be completed later this afternoon. Until then, we are uncertain of primary tumor origin, possibly breast vs. GI vs. Lung. Consulted ENT regarding tracheostomy placement. ENT did not feel comfortable moving forward with procedure until patient had biopsy results and could make a more informed decision. Patient has repeatedly answered that she would want chemotherapy, even if she was on ventilator. If patient is unable to be weaned off ventilator, which we are seeing minimal progress if any, she will require tracheostomy. No overnight events. Pt still complaining of sore throat, treated with aceta minophen. O: Physical exam: VS: See below General: Pt is a pleasant elderly female undergoing invasive ventilation, but awake and alert, communicating through pen and paper, not in any distress or p ain. HEENT: Mucous membranes moist, OG tube in place, ET tube 22 cm at the lip. Neck: no cervical lymphadenopathy, thyromegaly, or JVD. CV: Heart regular rate and rhythm. Normal S1 and S2, no rubs or gallops appreciated. Lungs: Prolonged expiratory phase, diminished breath sounds throughout lung fie lds, occasional scattered expiratory wheezes. No rhonchi or crackles appreciated. Abdomen: Soft, non-distended and non-tender to palpation. Small firm subcutaneous nodule overlying L ASIS. Extremities: No pedal edema, 2+ pulses b/l upper and lower extremities. Normal capillary refill. Neuro: Lightly sedated, but awake, alert and oriented. Asking pertinent questions. Good fine motor skills, able to write with pen and paper. Impression: 1. Acute hypercapnic respiratory failure requiring mechanical ventilation, likely secondary to COPD, but unclear. Continued attempts to wean patient from ventilator unsuccessful up to this point, consulted ENT for tracheostomy. 2. Abnormal Chest CT scan with L upper lobe mass invading chest wall, b/l breast nodules. Physical exam revealed subcutaneous firm nodule on L hip/LLQ abdomen. Biopsied L hip and L lung, US b/l breast nodules. Consistent with malignancy and mets, unknown origin at this time. Biopsies pending. 3. Obstructive lung process, likely severe. 4. Anxiety 5. DVT ppx - enoxaparin 6. Stress ulcer ppx - pantoprazole 7. Nutrition - tolerating OG tube feeds at goal rate. Plan: 1. Awaiting final biopsy results, Preliminary results of hip and lung biopsy reveal concern for malignancy with mets, consistent in both locations. Unknown primary origin at this time, pending tumor marker studies. 2. B/l Breast US results show similar morphology to US results of L hip/LLQ abdomen nodule. Subcutaneous firm nodules, concern for mets. 3. Continuing supportive care. Continued patient's ventilator settings at pressure support/CPAP today at 20/10 and will continue to wean as tolerated. Pt has not tolerated lower settings for prolonged periods. 4. 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 ENT uncomfortable with tracheostomy until patient understands full picture of her disease with biopsy results. Deferring tracheostomy placement at this time. 5. Continuing scheduled alprazolam for patients Anxiety. 6. Continuing PRN acetaminophen for throat pain/discomfort. 7. Will present at tumor board. Critical Care Time: 35 minutes, not including procedure time. ADDENDUM: I, Dr. Froilan Hanley, have conducted an independent examination and history of the patient and agree with the documentation. I discussed the assessment and plan with the medical student and agree with the above documentation. VS,Fishbone, I+O VS, Fishbone, I+O Laboratory Tests 05/29/19 04:57 Vital Signs Date Time Temp Pulse Resp B/P (MAP) Pulse Ox O2 Delivery O2 Flow Rate FiO2 05/29/19 10:01 100.3 86 20 98/55 (69) 95 Ventilator 35 I&O- Last 24 Hours up to 6 AM 05/29/19 06:00 Intake Total 1832.9 ml Output Total 915 ml Balance 917.9 ml GME ATTESTATION GME ATTESTATION My faculty preceptor for this patient encounter was physically present during the encounter and was fully available. All aspects of the patient interview, examination, medical decision making process, and medical care plan development were reviewed and approved by the faculty preceptor. The faculty preceptor is aware and concurs with the plan as stated in the body of this note and will att est to such by his/her cosignature. [facility] May 29, 2019 12:02 Arjun HANLEY MD Jun 09, 2019 17:14
[2019-05-29] MEDS: propofoL 1,000 MG in IV 1 EA IV SCH (15:05)
[2019-05-30] VITALS (21 sets, daily range): BP systolic 97–145; BP diastolic 54–69
[2019-05-30] MEDS: IPRATROPIUM 0.5MG/ALBUTEROL 2.5MG INH SOL UD 3ML (DUONEB)(J7620) NEB SCH ×5 (03:27→19:44)
[2019-05-30] MEDS: propofoL 1,000 MG in IV 1 EA IV SCH ×2 (03:54→16:20)
[2019-05-30 05:12] LABS: HEMATOCRIT 38.4 % (36.0-47.0); HEMOGLOBIN 11.9 g/dl (12.0-15.5); MEAN CORPUSCULAR HEMOGLOBIN 29.9 pg (27.0-33.0); MEAN CORPUSCULAR VOLUME 96.5 fl (80.0-96.0); PLATELET COUNT, AUTOMATED 272 10^3/uL (150-450); RED BLOOD COUNT 3.98 10^6/uL (4.00-5.40); WHITE BLOOD COUNT 16.8 10^3/uL (4.0-10.0)
[2019-05-30 05:35] LABS: ALBUMIN 2.1 GM/DL (3.2-5.2); BLOOD UREA NITROGEN 35 MG/DL (7-18); CALCIUM LEVEL 8.6 MG/DL (8.8-10.2); CARBON DIOXIDE LEVEL 32 MEQ/L (21-32); CHLORIDE LEVEL 102 MEQ/L (98-107); CREATININE FOR GFR 0.69 MG/DL (0.55-1.30); GLOMERULAR FILTRATION RATE > 60.0 (>39); GLUCOSE, FASTING 74 MG/DL (70-100); PHOSPHORUS LEVEL 3.5 MG/DL (2.5-4.9); POTASSIUM SERUM 4.1 MEQ/L (3.5-5.1); SODIUM LEVEL 140 MEQ/L (136-145)
[2019-05-30] MEDS: SLF 3 ML SYR IV SCH ×3 (05:51→22:07)
--- NOTE | 2019-05-30 08:07 | REP ---
Portable chest x-ray: Single view. History: Intubated patient. Findings: The lungs are symmetrically aerated and free of infiltrate. Pleural angles are sharp. NG tube enters left upper quadrant. Endotracheal tube terminates at the transverse aorta unchanged. Monitoring electrodes are again seen. Impression: No significant interval change from yesterday's radiograph. Electronically Signed by Roque Walker MD 05/30/2019 07:59 A
[2019-05-30] MEDS: ENOXAPARIN 40 MG/0.4 ML SYRINGE (J1650) SC SCH ×2 (08:25→10:32)
[2019-05-30] MEDS: CHLORHEXIDINE GLUCONATE 0.12 % 15ML UDC (PERIDEX ORAL RINSE) MT SCH ×2 (08:29→20:06)
[2019-05-30] MEDS: ALPRAZolam 0.25 MG TAB PO SCH ×3 (08:30→20:06)
[2019-05-30] MEDS: NICOTINE 21MG/24HR 1 EA TRANSDERMAL TD SCH (08:30)
[2019-05-30] MEDS: PANTOPRAZOLE 40MG INJ (PROTONIX) (C9113) IV SCH (08:30)
[2019-05-30] MEDS: methylPREDNISolone INJ 40 MG/1 ML VIAL (J2920) IV SCH (10:14)
[2019-05-30] MEDS ORDERED: BISACODYL 10 MG SUPP PR ONE (11:30)
--- NOTE | 2019-05-30 11:42 | IPNPDOC ---
Text Note Date of Service The patient was seen on 05/30/19. NOTE Patient is a 73-year-old female on day 10 of her ICU stay, day 10 of ventilator, who was admitted to the hospital for acute on chronic hypercapnic respiratory failure requiring ventilation. 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 Discussed results with patient who acknowledges understanding of her diagnosis, and would like everything to be done. She acknowledges that she would like chemotherapy while on ventilator, and is in agreement with plan for tracheostomy to improve her chances of weaning from ventilator. ENT has scheduled for tracheostomy placement for tomorrow. Yesterday afternoon patient was placed on SIMV at a rate of 8, the patient did not tolerate well became tachypneic and was switched back to PRVC mode. No overnight events per nursing staff. Objective: Physical exam Vital signs: Blood pressure 100 to 130s systolic over 50 to 70s diastolic, respiratory rate 17-27, oxygen saturation 94-99% while on PRVC tidal volume 370 respiratory rate 18 FiO2 35% PEEP of 5. MAXIMUM TEMPERATURE 98.1 overnight Gen.: Patient is a pleasant female lying in bed in no acute distress indicating no pain, [place] sedation score of 2. HEENT: Mixed membranes moist, OG tube in place, ET tube 22 cm lip Neck: no cervical lymphadenopathy no thyromegaly, no JVD. Cardiovascular: Heart regular rate and rhythm normal S1 and S2, no rubs or gallops murmurs appreciated. Lungs: Lungs clear to auscultation bilaterally, no rhonchi or wheezes, no rales. Prolonged expiratory phase noted. Abdomen: Soft, nondistended nontender to palpation, small subcutaneous nodule in the left lower quadrant of the abdominal wall, mild bruising from biopsy. Extremities: No pedal edema, 2+ bilateral upper and lower extremity distal pulses. NPO braces bilateral lower extremities. Neuro: Patient is slightly sedated but awake alert and oriented, able to ask questions through writing with pen and paper. Labs: White blood cell count trending downward, but still elevated. Chest x-ray: No new infiltrates seen, OG tube in place, ET tube in good position above the renetta. Impression: 1. Acute on chronic hypercapnic respiratory failure requiring mechanical ventilation secondary to COPD. Weaning from ventilator has been unsuccessful up until this point, failed again yesterday while on SIMV mode. 2. Metastatic breast cancer. 3. Obstructive lung process, likely severe. 4. Anxiety 5. DVT prophylaxis - enoxaparin 6. Stress ulcer prophylaxis - pantoprazole 7. Nutrition: Patient is tolerating OG tube feedings at goal rate, held OG tube feedings overnight for possible tracheostomy placement this morning. Plan: 1. Tracheostomy placement scheduled for tomorrow by ENT. 2. Consult oncology for recommendations after tracheostomy placement. Discussed patient's case in cancer conference yesterday, and does agree that her respiratory failure should be treated regardless of her malignancy and should be managed separately. 3. Restarted OG tube feeds this morning, patient was nothing by mouth overnight for possible tracheostomy today and Lovenox was held this morning. Lovenox and OG tube feedings were reinitiated today. Patient will be nothing by mouth after midnight, and Lovenox will be held tomorrow morning, in preparation for her tracheostomy placement tomorrow. 4. Continue supportive care. Patient's ventilator settings were PRVC tidal volume 370, respiratory rate 18, FiO2 35%, PEEP of 5, overnight. This morning patient placed on SIMV with a tidal volume of 370, rate of 12, FiO2 35%, PEEP 5, with pressure support at 10 cm H2O above the PEEP. 5. Continue with MPO boots during the day with brakes for active range of motion of the ankles. 6. Continue scheduled alprazolam for patient's anxiety. 7. Continuing as needed acetaminophen for her throat pain and discomfort. Critical Care Time: 35 minutes, not including procedure time. ADDENDUM: I, Dr. Froilan Hanley, have conducted an independent examination and history of the patient and agree with the documentation. I discussed the assessment and plan with the medical student and agree with the above documentation. VS,Fishbone, I+O VS, Fishbone, I+O Laboratory Tests 05/30/19 04:36 Vital Signs Date Time Temp Pulse Resp B/P (MAP) Pulse Ox O2 Delivery O2 Flow Rate FiO2 05/30/19 10:00 35 05/30/19 09:05 91 116/57 (76) 91 Ventilator 05/30/19 08:05 97.8 20 I&O- Last 24 Hours up to 6 AM 05/30/19 06:00 Intake Total 1899.0 ml Output Total 1385 ml Balance 514.0 ml GME ATTESTATION GME ATTESTATION My faculty preceptor for this patient encounter was physically present during the encounter and was fully available. All aspects of the patient interview, examination, medical decision making process, and medical care plan development were reviewed and approved by the faculty preceptor. The faculty preceptor is aware and concurs with the plan as stated in the body of this note and will attest to such by his/her cosignature. [facility] May 30, 2019 11:42 Arjun HANLEY MD Jun 09, 2019 17:24
[2019-05-31] VITALS (18 sets, daily range): BP systolic 94–140; BP diastolic 51–67
[2019-05-31] MEDS: IPRATROPIUM 0.5MG/ALBUTEROL 2.5MG INH SOL UD 3ML (DUONEB)(J7620) NEB SCH ×6 (00:14→19:50)
[2019-05-31 04:47] LABS: HEMATOCRIT 37.6 % (36.0-47.0); HEMOGLOBIN 11.7 g/dl (12.0-15.5); MEAN CORPUSCULAR HGB CONC 31.1 g/dl (32.0-36.5); MEAN CORPUSCULAR VOLUME 96.4 fl (80.0-96.0); PLATELET COUNT, AUTOMATED 276 10^3/uL (150-450); WHITE BLOOD COUNT 17.1 10^3/uL (4.0-10.0)
[2019-05-31 05:08] LABS: ALBUMIN 2.1 GM/DL (3.2-5.2); BLOOD UREA NITROGEN 35 MG/DL (7-18); CALCIUM LEVEL 8.6 MG/DL (8.8-10.2); CARBON DIOXIDE LEVEL 33 MEQ/L (21-32); CHLORIDE LEVEL 101 MEQ/L (98-107); CREATININE FOR GFR 0.71 MG/DL (0.55-1.30); GLOMERULAR FILTRATION RATE > 60.0 (>39); GLUCOSE, FASTING 74 MG/DL (70-100); PHOSPHORUS LEVEL 3.4 MG/DL (2.5-4.9); SODIUM LEVEL 143 MEQ/L (136-145)
[2019-05-31 05:55] LABS: ABG HCO3 28.9 MEQ/L (22.0-26.0); ABG O2 SATURATION 95.9 % (95.0-99.0); ABG PARTIAL PRESSURE O2 74.7 mmHg (75.0-100.0); ABG TOTAL CO2 30.1 MEQ/L (23.0-31.0); ABG pH (ARTERIAL) 7.477 UNITS (7.350-7.450)
[2019-05-31] MEDS: propofoL 1,000 MG in IV 1 EA IV SCH ×2 (06:12→22:26)
[2019-05-31] MEDS: SLF 3 ML SYR IV SCH ×3 (06:12→21:17)
--- NOTE | 2019-05-31 08:08 | REP ---
Portable chest x-ray: Single view. History: Intubated patient. Comparison study: May 30, 2019. Findings: In the tracheal tube remains in good position at the level of the transverse aorta. An NG tube enters left upper quadrant. The patient is rotated slightly to the left. Left hemidiaphragm is somewhat elevated. There is subtle hazy opacity at the right base suggesting a small amount of pleural fluid. No infiltrate is seen in the lung woods. Electronically Signed by Roque Walker MD 05/31/2019 07:59 A
[2019-05-31] MEDS: PANTOPRAZOLE 40MG INJ (PROTONIX) (C9113) IV SCH (08:17)
[2019-05-31] MEDS: CHLORHEXIDINE GLUCONATE 0.12 % 15ML UDC (PERIDEX ORAL RINSE) MT SCH ×2 (08:18→20:11)
[2019-05-31] MEDS: NICOTINE 21MG/24HR 1 EA TRANSDERMAL TD SCH (08:19)
[2019-05-31] MEDS: ALPRAZolam 0.25 MG TAB PO SCH ×3 (08:38→20:11)
[2019-05-31] MEDS ORDERED: LIDOCAINE W/EPINEPHRINE 1% 20ML VIAL As Ordered ONE (08:47)
--- NOTE | 2019-05-31 09:26 | IPN ---
DATE OF VISIT: 05/31/2019 I attended Ms. Valdovinos here in the intensive care unit. T-max overnight was 99.8, blood pressure generally in the 100-130-s, heart rate in the 80s with a sinus mechanism. Respiratory rate remains in the mid 20s. Ins and outs midnight to midnight are 1119 mL in with 957 mL out. Most recent arterial blood gas done on IV setting of 12, FiO2 of 35%, PEEP of 5, pressure support of 8, shows a pH of 7.47, pCO2 of 40, pO2 of 74.7. Chest x-ray done this morning shows endotracheal tube in good position. Poor inspiratory effort. No acute findings. Sodium 143, potassium4.0, chloride 101, CO2 33, BUN 35, creatinine 0.71, white blood cell count 17.1, hemoglobin 11.7, and platelet count 276,000. On exam, she is awake, alert and appropriate. Moves all extremities. She interacts appropriately. Pupils react, sclerae are clear. Membranes are moist. The chest shows diminished, but symmetric expansion. Breath sound intensity is diminished. No focal adventitious breath sounds identified. Cardiac exam is regular, without gallop. Peripheral pulses palpable, no edema. Abdomen soft, nontender, with active bowel sounds. No convincing organomegaly or masses. Extremities without cyanosis or clubbing. Neurologically, is awake, alert and appropriate. Psychiatric is generally normal mood and affect. IMPRESSION: 1. Acute on chronic respiratory failure, both hypoxemic and hypercapnic.2 2. Stage IV widely metastatic breast cancer. 3. Underlying anxiety. RECOMMENDATIONS: At this point, she is planned for tracheostomy this morning to aid her ventilator weaning. We will involve oncology at some point as she had been presented at tumor board. She will need to have a new feeding tube placed to continue enteral feeds. My hopes is that by maybe early next week we can allow her some food orally, but in the interim she will need to be fed enterally by other means. We will continue her other medications as is. Ulcer and deep vein thrombosis (DVT) prophylaxis are in place. Given her end stage disease and her advanced breast cancer, her prognosis remains guarded to grim in the long run, but will proceed as outlined above. Further recommendations will be made in the progress record as new information becomes available.
[2019-05-31] MEDS ORDERED: MIDAZOLAM INJ 2 MG/2 ML VIAL (J2250) As Ordered ONE (10:32)
[2019-05-31] MEDS ORDERED: dexameTHASONE 4 MG/ML 1ML VIAL (J1100) As Ordered ONE (10:32)
[2019-05-31] MEDS ORDERED: ONDANSETRON 4MG/2ML VIAL (J2405) As Ordered ONE (10:32)
[2019-05-31] MEDS ORDERED: fentaNYL 100 MCG/2 ML INJECTION (J3010) As Ordered ONE (10:32)
[2019-05-31] MEDS ORDERED: PHENYLephrine HCL 500 MCG/5 ML (100MCG/ML) SYRINGE (J2370) As Ordered ONE (10:32)
[2019-05-31] MEDS ORDERED: propofoL 200 MG/20 ML VIAL As Ordered ONE (10:32)
[2019-05-31] MEDS ORDERED: ePHEDrine SULFATE 25 MG/5 ML(5MG/ML) SYRINGE As Ordered ONE (10:32)
--- NOTE | 2019-05-31 12:25 | REP ---
Portable chest x-ray: Single view. History: Post tracheostomy. Comparison portable chest x-ray May 31, 2019. Findings: Nasogastric tube enters left upper quadrant. Tracheostomy tube is seen in good position. Lung woods are unchanged. Pleural angles are sharp. Impression: Tracheostomy tube in good position. Electronically Signed by Roque Walker MD 05/31/2019 12:16 P
[2019-05-31] MEDS: methylPREDNISolone INJ 40 MG/1 ML VIAL (J2920) IV SCH (12:56)
[2019-05-31 12:57] LABS: ABG BASE EXCESS 7.4 (-2.0-2.0); ABG O2 SATURATION 91.9 % (95.0-99.0); ABG PARTIAL PRESSURE CO2 45.2 mmHg (35.0-45.0); ABG PARTIAL PRESSURE O2 59.4 mmHg (75.0-100.0); ABG STANDARD HCO3 31.1 MEQ/L (22.0-26.0); ABG TOTAL CO2 33.4 MEQ/L (23.0-31.0); ABG pH (ARTERIAL) 7.468 UNITS (7.350-7.450)
[2019-05-31] MEDS: MORPHINE 2 MG/ML 1ML VIAL (J2270) IV PRN (12:57)
--- NOTE | 2019-05-31 19:48 | RO ---
DATE OF PROCEDURE: 05/31/2019 PREPROCEDURE DIAGNOSIS: Respiratory failure. POSTPROCEDURE DIAGNOSIS: Respiratory failure. OPERATIVE PROCEDURE: Tracheotomy and insertion of nasogastric tube. SURGEON: Abraham Shaw MD VOLUNTEER COORDINATOR: ANESTHESIA: General. DESCRIPTION OF PROCEDURE: Under general anesthesia with the patient already intubated from the ICU, the patient was draped in the usual manner. I infiltrated the skin with lidocaine and epinephrine. I divided the skin and subcutaneous tissues down to and there was a large central vein which I mobilized, divided and tied off with #3-0 silk. I dissected down to the cricoid. I dissected the tissues off of the trachea. I put a cricoid hook in and then made an incision into trachea. There was bleeding. It was identified as a small vein which was clamped and then cauterized. There was no further bleeding. I did check the area to make sure there was no further bleeding. Once this was done, then I continued the incision into the trachea and divided the tracheal cartilage 2 and 3 and then reflected the trachea laterally. I suctioned the airway. The endotracheal tube was then retracted backwards and when it was out of the view, I inserted the #6 [place] cuff fenestrated tube into the airway. The ventilator was hooked up again to that. I sutured in the trach tube with #2-0 silk. There was no bleeding then. I then applied the dressing and the tapes and ties and finished the procedure. Patient then had the nasogastric tube inserted by the nurse vending machine repairer. Patient then was transferred to the recovery room in excellent condition. ADDENDUM: (Dictated 05/31/2019 at 11:11 a.m.) The nurses assistant for this procedure was Tejinder Stone who held retractors and cauterized where necessary.
[2019-06-01] VITALS (13 sets, daily range): BP systolic 120–147; BP diastolic 58–67
[2019-06-01] MEDS: IPRATROPIUM 0.5MG/ALBUTEROL 2.5MG INH SOL UD 3ML (DUONEB)(J7620) NEB SCH ×6 (00:06→19:41)
[2019-06-01 05:01] LABS: HEMATOCRIT 35.2 % (36.0-47.0); HEMOGLOBIN 11.4 g/dl (12.0-15.5); MEAN CORPUSCULAR HEMOGLOBIN 30.8 pg (27.0-33.0); MEAN CORPUSCULAR HGB CONC 32.4 g/dl (32.0-36.5); MEAN CORPUSCULAR VOLUME 95.1 fl (80.0-96.0); PLATELET COUNT, AUTOMATED 279 10^3/uL (150-450); WHITE BLOOD COUNT 19.7 10^3/uL (4.0-10.0)
[2019-06-01 05:20] LABS: BLOOD UREA NITROGEN 33 MG/DL (7-18); CALCIUM LEVEL 8.5 MG/DL (8.8-10.2); CARBON DIOXIDE LEVEL 33 MEQ/L (21-32); CHLORIDE LEVEL 102 MEQ/L (98-107); CREATININE FOR GFR 0.72 MG/DL (0.55-1.30); GLOMERULAR FILTRATION RATE > 60.0 (>39); GLUCOSE, FASTING 118 MG/DL (70-100); PHOSPHORUS LEVEL 3.4 MG/DL (2.5-4.9); POTASSIUM SERUM 3.7 MEQ/L (3.5-5.1); SODIUM LEVEL 140 MEQ/L (136-145)
[2019-06-01] MEDS: SLF 3 ML SYR IV SCH ×3 (05:31→21:00)
[2019-06-01 05:50] LABS: ABG BASE EXCESS 8.6 (-2.0-2.0); ABG HCO3 32.7 MEQ/L (22.0-26.0); ABG O2 SATURATION 97.8 % (95.0-99.0); ABG PARTIAL PRESSURE CO2 42.9 mmHg (35.0-45.0); ABG PARTIAL PRESSURE O2 94.9 mmHg (75.0-100.0); ABG STANDARD HCO3 32.4 MEQ/L (22.0-26.0)
[2019-06-01] MEDS: NICOTINE 21MG/24HR 1 EA TRANSDERMAL TD SCH (08:29)
[2019-06-01] MEDS: PANTOPRAZOLE 40MG INJ (PROTONIX) (C9113) IV SCH (08:30)
[2019-06-01] MEDS: ALPRAZolam 0.25 MG TAB PO SCH ×3 (08:32→20:13)
[2019-06-01] MEDS: CHLORHEXIDINE GLUCONATE 0.12 % 15ML UDC (PERIDEX ORAL RINSE) MT SCH ×2 (08:32→20:13)
[2019-06-01] MEDS: ENOXAPARIN 40 MG/0.4 ML SYRINGE (J1650) SC SCH (08:33)
[2019-06-01] MEDS: methylPREDNISolone INJ 40 MG/1 ML VIAL (J2920) IV SCH (10:11)
--- NOTE | 2019-06-01 10:50 | REP ---
Portable chest x-ray: Single view. History: Post tracheostomy. Findings: Nasogastric tube enters left upper quadrant. Tracheostomy tube is seen in place. No new infiltrate is seen in the lung woods. Cardiomediastinal silhouette is unremarkable and unchanged. Electronically Signed by Roque Walker MD 06/01/2019 07:59 A
--- NOTE | 2019-06-01 14:15 | IPN ---
DATE OF VISIT: 06/01/2019 Patient has been examined and chart is reviewed. She is awake, alert, and appropriate despite low-dose propofol. She continues on [id number] Xanax. Maximum temperature (Tmax) overnight, 97.4, blood pressure in the 120s, heart rate generally in the 80s to 90s, respiratory rate generally in the 20s without accessory muscle use. Intake and output (I's and O's) midnight to midnight, only 484 mL in with 960 out. Most recent laboratories show white blood cell count of 19.7, hemoglobin 11.4, platelet count 279,000. No differential today. Sodium 140, potassium of 3.7, chloride 102, CO2 33, BUN 33, creatinine 0.72, glucose 118. Blood gas done this morning on an SIMV of 12, tidal volume 370, positive end-expiratory pressure (PEEP) of 3, pressure support 10, FiO2 of 35%, has a pH 7.500, pCO2 of 42.9, pO2 of 94.9. Chest x-ray shows no pneumothorax. The tracheostomy tube in good position, and there is a nasogastric (NG) tube that goes below the level of the diaphragm. On exam, she is awake, alert, and appropriate, comfortable. Mucous membranes mildly dry. Trach site clean and dry. Pupils react. Chest shows diminished but symmetric expansion, percussion hyperresonant. Tactile fremitus diminished but palpable. There are no focal adventitious breath sounds identified. Cardiac exam is distant but regular. Peripheral pulses palpable. Trace edema at best. Abdomen soft with active bowel sounds. No convincing organomegaly or masses. Extremities without cyanosis or clubbing. Neurologically, she is awake, alert, and appropriate, moves all extremities well. Psychiatric, generally normal mood and affect. IMPRESSION: 1. Acute on chronic respiratory failure. 2. Advanced obstructive lung disease, most likely is the cause of acute on chronic respiratory failure. 3. Stage IV breast cancer. 4. Respiratory alkalosis. RECOMMENDATIONS: At this point, we will decrease her sedation and begin the weaning process. My hope is that she will be able to get the trach collar in the several days. She certainly is more comfortable. She has an nasogastric (NG) tube in place, which we are using for feeds. I will let her have some ice chips today. My hope is that once she is able to get into a trach collar, we can deflate her balloon and let her have a little bit more in the way of liquids, as least to start, and we can supplement her diet that way. In the next several days, I would involve oncology in her care as well in view of her breast cancer. Ulcer/deep venous thrombosis (DVT) prophylaxis are in place, and she is tolerating it well. At this point, we will proceed as outlined above. A long-term prognosis is guarded at best, but my hope is that we might, at least, be able to achieve ventilator weaning now that she is status post tracheostomy. We will proceed as outlined above. Further recommendations will be made in the progress record as new information becomes available.
[2019-06-02] VITALS (13 sets, daily range): BP systolic 123–150; BP diastolic 62–106; O2SAT 93
[2019-06-02] MEDS: IPRATROPIUM 0.5MG/ALBUTEROL 2.5MG INH SOL UD 3ML (DUONEB)(J7620) NEB SCH ×7 (00:06→23:20)
[2019-06-02 04:50] LABS: HEMATOCRIT 33.5 % (36.0-47.0); HEMOGLOBIN 10.8 g/dl (12.0-15.5); MEAN CORPUSCULAR HEMOGLOBIN 30.6 pg (27.0-33.0); MEAN CORPUSCULAR HGB CONC 32.2 g/dl (32.0-36.5); MEAN CORPUSCULAR VOLUME 94.9 fl (80.0-96.0); PLATELET COUNT, AUTOMATED 290 10^3/uL (150-450); RED BLOOD COUNT 3.53 10^6/uL (4.00-5.40); WHITE BLOOD COUNT 19.1 10^3/uL (4.0-10.0)
[2019-06-02] MEDS: SLF 3 ML SYR IV SCH ×3 (05:07→20:51)
[2019-06-02 05:12] LABS: ALBUMIN 1.8 GM/DL (3.2-5.2); BLOOD UREA NITROGEN 29 MG/DL (7-18); CARBON DIOXIDE LEVEL 33 MEQ/L (21-32); CHLORIDE LEVEL 104 MEQ/L (98-107); CREATININE FOR GFR 0.59 MG/DL (0.55-1.30); GLOMERULAR FILTRATION RATE > 60.0 (>39); GLUCOSE, FASTING 110 MG/DL (70-100); PHOSPHORUS LEVEL 3.2 MG/DL (2.5-4.9); POTASSIUM SERUM 3.7 MEQ/L (3.5-5.1); SODIUM LEVEL 141 MEQ/L (136-145)
[2019-06-02 05:50] LABS: ABG BASE EXCESS 7.8 (-2.0-2.0); ABG HCO3 31.7 MEQ/L (22.0-26.0); ABG O2 SATURATION 96.4 % (95.0-99.0); ABG PARTIAL PRESSURE CO2 41.8 mmHg (35.0-45.0); ABG PARTIAL PRESSURE O2 80.9 mmHg (75.0-100.0); ABG STANDARD HCO3 31.6 MEQ/L (22.0-26.0); ABG pH (ARTERIAL) 7.498 UNITS (7.350-7.450)
--- NOTE | 2019-06-02 08:18 | REP ---
Portable chest x-ray: Single view. History: Intubated patient. Comparison study: June 01, 2019. Findings: A tracheostomy tube remains in good position. NG tube is seen in the left upper quadrant of the abdomen. There is ill-defined hazy opacity in the left upper lobe region. Lung woods are otherwise clear. Heart is not enlarged. Impression: No new infiltrate. Tracheostomy and nasogastric tubes in place. Electronically Signed by Roque Walker MD 06/02/2019 08:10 A
[2019-06-02] MEDS: ALPRAZolam 0.25 MG TAB PO SCH ×3 (10:03→20:48)
[2019-06-02] MEDS: CHLORHEXIDINE GLUCONATE 0.12 % 15ML UDC (PERIDEX ORAL RINSE) MT SCH ×2 (10:03→20:48)
[2019-06-02] MEDS: methylPREDNISolone INJ 40 MG/1 ML VIAL (J2920) IV SCH (10:03)
[2019-06-02] MEDS: PANTOPRAZOLE 40MG INJ (PROTONIX) (C9113) IV SCH (10:03)
[2019-06-02] MEDS: NICOTINE 21MG/24HR 1 EA TRANSDERMAL TD SCH (10:04)
[2019-06-02] MEDS: ENOXAPARIN 40 MG/0.4 ML SYRINGE (J1650) SC SCH (10:04)
--- NOTE | 2019-06-02 10:06 | IPN ---
DATE: 06/02/2019 I again attended Ms. Valdovinos here in the intensive care unit. Patient has been examined and chart reviewed. She is off of proprofol. She is awake, alert, and appropriate. Follows all commands and interacts appropriately. T-max overnight 98.1, blood pressure 120-150 systolic, heart rate generally in the 80s to low 90s with a sinus mechanism, respiratory rate remains in the 20s. Intake and output midnight to midnight, 2170 mL in with 830 mL out. Chest x-ray shows no new findings. Tracheostomy tube is in good position. No infiltrates. No pneumothorax. On exam, she is awake. She is alert and appropriate and moves all extremities well. Pupils reactive, sclera clear. Trach site clean and dry. Chest shows markedly diminished but symmetric expansion, hyperresonant to percussion. There is a kyphosis. No focal wheezes, rhonchi, crackles or rubs. Cardiac exam is distant but regular. Peripheral pulses palpable. Minimal edema. Abdomen soft, nontender with active bowel sounds. No convincing organomegaly or masses. Extremities without cyanosis or clubbing. Neurologically, she is awake, alert, and appropriate. LABORATORIES: Show a white blood cell count of 19.1, hemoglobin 10.8, platelet count 290,000. Sodium 141, K of 3.0, chloride 104, CO2 33, BUN 29, creatinine 0.59. Blood gas done on an IMV of 6, tidal volume of 370, PEEP of 5, pressure support of 10, FiO2 of 35% pH of 7.498, pO2 of 80.9, saturation 96%. IMPRESSION: 1. Acute on chronic respiratory failure, both hypoxemia and hypercapnic. 2. End stage obstructive lung disease. 3. Widely metastatic breast cancer. RECOMMENDATIONS: At this point, we will try her on pressure support alone and see how she does, hopefully to trach collar in the next day or so. I will involve oncology tomorrow regarding her breast cancer. Pain control is reasonable. Ulcer and deep vein thrombosis (DVT) prophylaxis are in place. Nutritionally, she is meeting goals on tube feeds. We will have physical therapy become much more involved with her tomorrow as well. Further recommendations will be made in the progress record as new information becomes available. Her prognosis remains guarded at best in view of all of the above.
[2019-06-03] VITALS (11 sets, daily range): BP systolic 110–164; BP diastolic 59–71
[2019-06-03] MEDS: MORPHINE 2 MG/ML 1ML VIAL (J2270) IV PRN ×2 (00:24→18:55)
[2019-06-03] MEDS: IPRATROPIUM 0.5MG/ALBUTEROL 2.5MG INH SOL UD 3ML (DUONEB)(J7620) NEB SCH ×6 (03:12→23:40)
[2019-06-03 04:33] LABS: HEMATOCRIT 35.2 % (36.0-47.0); MEAN CORPUSCULAR HEMOGLOBIN 29.5 pg (27.0-33.0); MEAN CORPUSCULAR HGB CONC 31.3 g/dl (32.0-36.5); MEAN CORPUSCULAR VOLUME 94.4 fl (80.0-96.0); PLATELET COUNT, AUTOMATED 281 10^3/uL (150-450); RED BLOOD COUNT 3.73 10^6/uL (4.00-5.40); WHITE BLOOD COUNT 19.4 10^3/uL (4.0-10.0)
[2019-06-03 05:10] LABS: ALBUMIN 1.8 GM/DL (3.2-5.2); BLOOD UREA NITROGEN 28 MG/DL (7-18); CARBON DIOXIDE LEVEL 31 MEQ/L (21-32); CHLORIDE LEVEL 102 MEQ/L (98-107); CREATININE FOR GFR 0.61 MG/DL (0.55-1.30); GLOMERULAR FILTRATION RATE > 60.0 (>39); GLUCOSE, FASTING 107 MG/DL (70-100); SODIUM LEVEL 139 MEQ/L (136-145)
[2019-06-03] MEDS: SLF 3 ML SYR IV SCH ×3 (05:25→20:16)
[2019-06-03 06:18] LABS: ABG BASE EXCESS 3.2 (-2.0-2.0); ABG HCO3 26.1 MEQ/L (22.0-26.0); ABG O2 SATURATION 98.2 % (95.0-99.0); ABG PARTIAL PRESSURE CO2 34.3 mmHg (35.0-45.0); ABG PARTIAL PRESSURE O2 96.2 mmHg (75.0-100.0); ABG STANDARD HCO3 27.3 MEQ/L (22.0-26.0); ABG TOTAL CO2 27.2 MEQ/L (23.0-31.0)
--- NOTE | 2019-06-03 07:51 | REP ---
Portable chest x-ray: Single view. History: Intubated patient. Comparison study: June 02, 2019. Findings: Tracheostomy tube remains in good position. NG tube enters left upper quadrant of the abdomen. There is new increased pulmonary parenchymal opacity and possibly some volume loss in the left lower lobe consistent with infiltrate and/or atelectasis. This is a new finding. Right lung remains clear. Electronically Signed by Roque Walker MD 06/03/2019 07:42 A
[2019-06-03] MEDS: PANTOPRAZOLE 40MG INJ (PROTONIX) (C9113) IV SCH (08:43)
[2019-06-03] MEDS: CHLORHEXIDINE GLUCONATE 0.12 % 15ML UDC (PERIDEX ORAL RINSE) MT SCH ×2 (08:43→20:15)
[2019-06-03] MEDS: ALPRAZolam 0.25 MG TAB PO SCH ×3 (08:43→20:15)
[2019-06-03] MEDS: ENOXAPARIN 40 MG/0.4 ML SYRINGE (J1650) SC SCH (08:44)
[2019-06-03] MEDS: NICOTINE 21MG/24HR 1 EA TRANSDERMAL TD SCH (08:44)
[2019-06-03] MEDS: ACETAMINOPHEN 325 MG/10.15 ML UDC GT PRN (08:45)
--- NOTE | 2019-06-03 09:56 | IPN ---
DATE OF VISIT: 06/03/2019 I again attended Ms. Valdovinos here in the intensive care unit. Patient has been examined and chart reviewed. Maximum temperature (Tmax) overnight 100.8, blood pressure 120-160 systolic, heart rate 90 to the low 100s, respiratory rate remains in the 20s to low 30s without obvious accessory muscle use. Intake and output midnight to midnight, 2040 mL in with 730 mL out. Most recent laboratories show sodium 139, potassium of 4.0, chloride 102, CO2 31, BUN 28, creatinine 0.61. White blood cell count remains unchanged at 19.4, hemoglobin 11.0, platelet count 281,000. Blood gas done this morning on pressure support mode: PEEP of 5, pressure support of 10, FIO2 of 30%, has a pH of 7.50, PCO2 of 34.3, pAO2 of 96.2. Chest x-ray shows decreased aeration in the left chest compared to the right. On examination, she is awake and alert and appropriate. Pupils react. Sclerae clear. Trachea is in the midline but tache tubing is somewhat pulled to the left today, and that was readjusted. Examination of the chest shows mildly diminished breath sound intensity on the left with coarse rhonchi consistent with mucus plug. The right chest is fairly clear. No convincing crackles or egophony. Cardiovascular examination: Is regular. Peripheral pulse palpable. No edema. Abdomen soft, nontender, with active bowel sounds. No convincing organomegaly or masses. Extremities without cyanosis or clubbing. Neurologically, she is awake, alert, and appropriate. Psychiatric: Generally normal mood and affect. IMPRESSION: 1. Acute on chronic respiratory failure. 2. Advanced obstructive lung disease. 3. Metastatic breast cancer. 4. Intermittent difficulties with malclearance of secretions. 5. Malnutrition. 6. Longstanding previous tobacco use. RECOMMENDATIONS: At this point, we will aid her with secretion clearance. She will have her sputum recultured, as it has somewhat of a foul odor to it. She had a low-grade fever last night. At this point, she remains on low-dose Solu-Medrol. She is not on antimicrobials at this point, but I will empirically add them in view of her low-grade fever and her purulent sputum. She is allergic to PENICILLINS but should be able to take one of the penems; and in view of her current status, will start meropenem, as I am concerned this may be pseudomonal given its odor. For now, she is tolerating enteral feeds. Ulcer and deep vein thrombosis (DVT) prophylaxis are in place. We await the outcome of the above. She is in very good spirits, and my hope is that she will tolerate trache collar trials, but we may certainly be limited by her secretion issue. I will put in a consult for oncology today in view of her breast cancer issues. Will leave her nasogastric (NG) tube in place for now. Prognosis remains overall guarded at best in view of her multiorgan dysfunction and her advanced underlying breast cancer and her premorbid state. Further recommendations will be made in the progress record as new information becomes available.
[2019-06-03] MEDS: MEROPENEM INJ 1 GM in IV 1 EA IV SCH ×2 (11:23→18:33)
[2019-06-03] MEDS: methylPREDNISolone INJ 40 MG/1 ML VIAL (J2920) IV SCH (11:23)
--- NOTE | 2019-06-03 22:33 | CR ---
DATE OF CONSULTATION: 06/03/2019 INPATIENT CONSULTATION INDICATION FOR CONSULTATION: Evaluation and management recommendations regarding newly diagnosed carcinoma, widely metastatic, estrogen receptor positive. IDENTIFICATION AND CHIEF COMPLAINT: Yessy Valdovinos is a shelly 73-year-old woman seen in the intensive care unit while on mechanical ventilation via tracheostomy, who reports, via writing and signing: "I'm doing okay. I'm more comfortable now than I had been." HISTORY OF PRESENT ILLNESS: Yessy Valdovinos is a shelly 73-year-old woman with a history of chronic obstructive pulmonary disease, who presented to the emergency department at [facility] on the morning of May 20, 2019 with chief complaint of profound dyspnea, accompanied by cough of 4 days duration. The patient required endotracheal intubation and mechanical intubation, and was admitted to the medical intensive care unit. Prior to admission, she had been evaluated at two urgent care centers sequentially, and was given corticosteroids and doxycycline by mouth as well as bronchodilators, without improvement. Following admission to the medical intensive care unit further evaluation included CT scan of the chest, and this documented a left upper lobe lung mass, as well as bilateral breast nodules and a subcutaneous nodule overlying the left hip. On May 27, 2019, fine needle aspirates were performed both of the subcutaneous hip nodule as well as the left upper lobe lung mass. Fine-needle aspirate of the left upper lobe mass (specimen number [id number]) reported metastatic adenocarcinoma, with the written impression that this was likely from a breast primary. Tumor cells were strongly positive for estrogen receptors. However, the tumor cells were noted to be negative for GATA3, a protein typically seen in estrogen receptor positive breast cancers. Medical oncology was, therefore, consulted. CT scan of the chest noted the infiltrative left upper lobe lung lesion, which involves the anterior chest wall, with the infiltrative mass lesion eroding into the anterior end of the left third rib, with involvement of the intercostal soft tissues between the anterior third and fourth ribs and between the second and third and first and second ribs. That mass was measured at 3.9 cm x 3.4 cm x 7 cm in craniocaudal span. No other significant pulmonary parenchymal opacity was noted. Multiple osteoporotic wedge compression deformities were noted in the thoracic spine. A 9 mm nodule was noted in the left breast with subcutaneous nodules in the left flank, one measuring 1.1 cm and one in the left posterior paraspinal region measuring 2.3 cm. An 8 mm nodule was noted in the right breast. A subcutaneous 6 mm nodule was noted along the costal margin on the right. The patient underwent tracheostomy and insertion of a nasogastric tube on May 31, 2019 without complications. At present, Ms. Valdovinos is awake and alert, and entirely conversant, although by writing and signing with her hands. She is in remarkably good spirits, and indicates she is eager to proceed with treatment for her malignancy. ALLERGIES: The patient has history of allergy to PENICILLINS. CURRENT MEDICATIONS: - meropenem 1 gram IV every 8 hours - Solu-Medrol 40 mg intravenously every 24 hours - morphine sulfate 1 mg IV every 2 hours as needed - Xanax 0.25 mg by mouth three times a day - nicotine 21 mg patch to skin daily - DuoNeb inhaler therapy every 4 hours - enoxaparin 40 mg subcutaneously daily - pantoprazole 40 mg intravenously daily PAST MEDICAL HISTORY: The patient has a past history significant for emphysema. She is 3, para 3 and status post section. SOCIAL HISTORY: TOBACCO: The patient has smoked up to one pack per day for approximately 50 years and continued to use tobacco until admission. ALCOHOL: The patient does not use alcohol regularly. ILLICIT DRUGS: No history of illicit drug use. FAMILY HISTORY: There is no reported history of breast cancer in any first-degree relatives. Family history is otherwise noncontributory. REVIEW OF SYSTEMS: Neurologic: No history of head trauma, seizure disorder. Respiratory: The patient is being maintained on mechanical ventilation with tracheostomy in place. No prior history of mechanical ventilation. There is a history of emphysema as noted. No cough at present. No chest pain. Cardiac: No history of myocardial infarction. No exertional chest pressure by report. The patient underwent echocardiogram on May 20, 2019 showing left ventricular ejection fraction 75% by estimate, grade 1 left ventricular diastolic dysfunction. Mild mitral annular calcification noted with no mitral regurgitation. No orthopnea. No history of paroxysmal nocturnal dyspnea. Gastrointestinal: No nausea, vomiting, abdominal pain or diarrhea prior to admission. No history of hepatitis. Musculoskeletal: The patient is noted to have degenerative joint disease and osteoporotic changes on imaging studies. No recent fractures. Constitutional: The patient reports fatigue but is otherwise without fevers, chills or sweats at this time. The remainder of the review of systems was obtained and was negative. PHYSICAL EXAMINATION: The patient is a well-developed, well-nourished woman, awake, alert and oriented to self and place, in no distress, despite tracheostomy with mechanical ventilation. Temperature 98.7, pulse 86, respirations 22, blood pressure 120/62, oxygen saturation 96% on 30% FiO2. Skin: Pale, anicteric but without lesions. HEENT Examination: Normocephalic, atraumatic. Pupils reactive. Extraocular muscles intact. Sclerae anicteric. Oropharynx without lesions. Neck: Supple without appreciable thyromegaly. Tracheostomy in place. Lymphatics: No pathologic lymphadenopathy appreciated in the cervical, supraclavicular, axillary, nor inguinal regions. Subcutaneous nodules are present as noted above. Lungs: Bilateral breath sounds with occasional rhonchi. Cardiac Exam: Regular rhythm. Point of maximal impulse nondisplaced. S1, S2, without appreciable gallop, rub or murmur. Breast Examination: Deferred. Abdomen: Active bowel sounds, soft, nontender without guarding or rebound tenderness. The liver percusses to 13 cm. The spleen percusses to 9 cm. Pelvic Examination: Deferred. Extremities: Without clubbing or cyanosis, but there is 1+ edema of all extremities. Neurologic Exam: Mental status intact. Cranial nerves intact. Motor and sensory grossly intact. LABORATORY DATA: Laboratory studies dated June 03, 2019 include BUN 28, creatinine 0.61 mg per deciliter, glucose 107 mg per deciliter, albumin depressed at 1.8 grams per deciliter, white blood count 19,400 per microliter, hemoglobin 11 grams per deciliter, hematocrit 35.2%, platelet count 281,000. IMPRESSION: Adenocarcinoma, widely metastatic. The patient has adenocarcinoma, metastatic to the subcutaneous soft tissues, the lung, and erosion into the rib cage, with additional possible sites of disease not yet fully delineated. The tumor is, as noted, an adenocarcinoma, estrogen receptor positive, but with atypical features for breast cancer. The distribution of her disease is not typical for hormone receptor positive breast cancer. Aggressive metastatic disease, with erosion into soft tissue and ribs is typically seen in hormone receptor negative breast cancer, rather than hormone receptor positive breast cancer. A variety of other tumors can express estrogen receptors, most notably uterine adenocarcinoma. The patient's pelvis has not yet been imaged, and the pattern of spread is certainly compatible with a diagnosis of uterine cancer. However, both diseases - when hormone receptor positive - will respond to hormone modulatory therapy. Among of the hormone modulatory treatment options, letrozole 2.5 mg by mouth daily - or in this case by G-tube - is typically extremely well tolerated, and active, although when hormone modulatory therapy is active in treating breast cancer, the regression of disease is typically gradual over weeks to months, rather than rapid as occurs with cytotoxic chemotherapy. The sites of the patient's metastatic disease do not appear to be immediately life threatening, and therefore it does not appear to be a medical emergency to begin hormonal therapy. However, it would be reasonable to do so at this time, as the toxicities are minimal, and the potential benefit is certainly present. This was discussed with the patient at the time of consultation, and she indicated she was amendable to proceeding with letrozole. RECOMMENDATIONS: The patient requires additional staging studies. Ideally a PET/CT scan would be performed once she is an outpatient. However, while she is an inpatient, if possible, CT scan of the abdomen and pelvis would be helpful to achieve additional staging, as would radionuclide bone scan at some point in the near future, if PET/CT is not obtained. Letrozole 2.5 mg by mouth can certainly be started, and the patient is amendable to this. This agent is a hormone modulatory drug and not a true chemotherapeutic. Finally, it may be helpful for the patient's histopathologic tissue to be submitted to a center which has access to additional immunohistochemical staining and molecular studies, to determine if targeted therapy would be of value. Evaluation of the histopathologic material at the [facility], for example, may yield additional insights into the tissue of origin and the biology of the patient's tumor. Thus, it is recommended that histopathology material be sent out for a second opinion and additional studies including, if possible, molecular diagnostics, such as BRCA1 and BRCA2 mutation analysis. If the patient tolerates letrozole, and additional data accumulates that this is a breast primary, then addition of a CDK4/6 inhibitor, such as palbociclib, may be of benefit to the patient, although this carries additional toxicities. Further management recommendations will be forthcoming based on the patient's clinical status as it evolves. If letrozole can be initiated at 2.5 mg by G-tube daily, then this would may be helpful. The patient will continue to be followed by medical oncology throughout her hospital stay.
[2019-06-04] VITALS (8 sets, daily range): BP systolic 115–161; BP diastolic 59–79
[2019-06-04] MEDS: MEROPENEM INJ 1 GM in IV 1 EA IV SCH ×3 (02:00→17:46)
[2019-06-04] MEDS: IPRATROPIUM 0.5MG/ALBUTEROL 2.5MG INH SOL UD 3ML (DUONEB)(J7620) NEB SCH ×5 (03:21→18:15)
[2019-06-04] MEDS: SLF 3 ML SYR IV SCH ×3 (05:35→22:36)
[2019-06-04 05:53] LABS: ABG BASE EXCESS 9.2 (-2.0-2.0); ABG HCO3 33.9 MEQ/L (22.0-26.0); ABG O2 SATURATION 95.7 % (95.0-99.0); ABG PARTIAL PRESSURE O2 72.6 mmHg (75.0-100.0); ABG STANDARD HCO3 32.9 MEQ/L (22.0-26.0); ABG TOTAL CO2 35.3 MEQ/L (23.0-31.0); ABG pH (ARTERIAL) 7.476 UNITS (7.350-7.450)
[2019-06-04 07:51] LABS: BASO % 0.1 % (0.0-1.0); EOS # 0.3 10^3/uL (0.0-0.5); EOS % 1.4 % (0.0-3.0); HEMATOCRIT 37.9 % (36.0-47.0); HEMOGLOBIN 11.6 g/dl (12.0-15.5); LYMPH # 1.7 10^3/uL (1.5-5.0); LYMPH % 7.9 % (24.0-44.0); MEAN CORPUSCULAR HEMOGLOBIN 29.7 pg (27.0-33.0); MEAN CORPUSCULAR HGB CONC 30.6 g/dl (32.0-36.5); MEAN CORPUSCULAR VOLUME 96.9 fl (80.0-96.0); MONO # 1.1 10^3/uL (0.0-0.8); MONO % 5.4 % (0.0-5.0); NEUTROPHILS # 17.6 10^3/uL (1.5-8.5); NEUTROPHILS % 84.6 % (36.0-66.0); PLATELET COUNT, AUTOMATED 299 10^3/uL (150-450); RED BLOOD COUNT 3.91 10^6/uL (4.00-5.40); WHITE BLOOD COUNT 20.8 10^3/uL (4.0-10.0)
[2019-06-04 08:17] LABS: ALBUMIN 1.7 GM/DL (3.2-5.2); ALT/SGPT 50 U/L (12-78); BILIRUBIN,TOTAL 0.4 MG/DL (0.2-1.0); BLOOD UREA NITROGEN 27 MG/DL (7-18); CALCIUM LEVEL 8.5 MG/DL (8.8-10.2); CARBON DIOXIDE LEVEL 35 MEQ/L (21-32); CHLORIDE LEVEL 101 MEQ/L (98-107); CHOLESTEROL LEVEL 163 MG/DL (< 200); CPK CREATINE PHOSPHOKINASE 16 U/L (26-192); GLOMERULAR FILTRATION RATE > 60.0 (>39); GLUCOSE, FASTING 107 MG/DL (70-100); LDH LACTATE DEHYDROGENASE 164 U/L (84-246); PHOSPHORUS LEVEL 2.5 MG/DL (2.5-4.9); POTASSIUM SERUM 3.9 MEQ/L (3.5-5.1); SODIUM LEVEL 139 MEQ/L (136-145); TOTAL PROTEIN 5.2 GM/DL (6.4-8.2); TRIGLYCERIDES LEVEL 87 MG/DL (<150)
--- NOTE | 2019-06-04 08:25 | REP ---
Portable chest, 07:41 a.m., single AP view with the patient semi upright: Comparison is 06/03/2019. There is focal increased density in the mid and lower left lung. This has increased in radiodensity from the comparison study. The right costophrenic angle is slightly effaced as an interval change, possibly a new small right pleural effusion. The tracheostomy and endotracheal tube remain in satisfactory positions, unchanged. Cardiac size is normal per Impression: Increased density inferiorly in the mid and lower left lung as described. Questionable new small right pleural effusion. Electronically Signed by Sherman Guardado MD 06/04/2019 08:18 A
--- NOTE | 2019-06-04 09:42 | IPN ---
DATE: 06/04/2019 I again attended Ms. Valdovinos here in the intensive care unit. The patient has been examined and chart reviewed. She has remained off the ventilator as frankly she refused to be put back on. Maximum temperature (Tmax) overnight 98.8, blood pressure 140 systolic, heart rate generally in the 90s with a sinus mechanism, respiratory rate generally in the 20s without accessory muscle use. She remains on 30% FiO2. Chest x-ray done this morning compared to prior films shows some persistence of subsegmental atelectasis on the left. Right chest is fairly clear, except there was maybe some blunting at the extreme angle. Laboratories show white blood cell count mildly elevated at 20.8, hemoglobin 11.6, and platelet count 299,000, with 84.6% segs, 0 bands. Sodium 139, potassium of 3.9, chloride 101, CO2 35, BUN 27, creatinine 0.61. Blood gas done on 30% aerosol trach collar shows a pH of 7.476, PCO2 of 47.0 and pAO2 of 72.6. On examination, she is seated in the bedside chair. Appears somewhat weak, but is conversant. Denies pain. Vitals as above. HEENT: Otherwise generally normocephalic and atraumatic. Trach site is clean and dry. She does have some discolored secretions. Membranes are moist. Chest shows diminished breath sounds at the left base with some rhonchi. They only partially clear with cough. Right chest fairly clear, but there is globally diminished breath sound intensity and markedly diminished expansion, although reasonably symmetric. Cardiac exam distant, but regular. Peripheral pulse palpable. No edema. Abdomen soft, nontender, with active bowel sounds. No convincing organomegaly or masses. Extremities without cyanosis or clubbing. Neurologically, she is awake, alert, and appropriate. Moves all extremities. Psychiatric: Generally normal mood and affect. IMPRESSION: 1. Acute on chronic respiratory failure, status post tracheostomy, now on trach collar. 2. Mild secretions. 3. Advanced obstructive lung disease. 4. Emphysema. 5. Long standing previous tobacco abuse. 6. Stage IV adenocarcinoma, estrogen receptor positive, presumed primary breast, workup in progress. RECOMMENDATIONS: At this point, I appreciate the input of oncology and workup is progressing. Physical therapy is involved with strengthening. We will evaluate her swallowing as it will be nice to advance her diet. She still has some issues with mal clearance of secretions and we are working on this. She refused to back on the ventilator last night, but certainly would aid with secretion clearance, but will see how that goes. She still desires to be a full code. At this point, we will continue her current medication regimen. She is on meropenem pending final sputum culture. She does have many WBCs and moderate gram positive cocci in pairs and chains with only a few gram negative rods. Will continue low dose steroids as well as aggressive pulmonary toilet. Will proceed as outlined above. Her prognosis still remains guarded at best. We await the completion of her workup. I will involve the hospitalist in her care at this point since she has remained off of mechanical ventilatory support. Will increase out of bed as able. Further recommendations will be made in the progress record as new information becomes available.
[2019-06-04] MEDS ORDERED: ISOVUE-370 76% 100ML VIAL (Q9967) As Ordered ONE (09:50)
[2019-06-04] MEDS: LETROZOLE GT SCH (10:27)
[2019-06-04] MEDS: ENOXAPARIN 40 MG/0.4 ML SYRINGE (J1650) SC SCH (10:28)
[2019-06-04] MEDS: CHLORHEXIDINE GLUCONATE 0.12 % 15ML UDC (PERIDEX ORAL RINSE) MT SCH ×2 (10:28→20:23)
[2019-06-04] MEDS: ALPRAZolam 0.25 MG TAB PO SCH ×3 (10:28→20:23)
[2019-06-04] MEDS: NICOTINE 21MG/24HR 1 EA TRANSDERMAL TD SCH (10:29)
[2019-06-04] MEDS: PANTOPRAZOLE 40MG INJ (PROTONIX) (C9113) IV SCH (10:29)
[2019-06-04] MEDS: methylPREDNISolone INJ 40 MG/1 ML VIAL (J2920) IV SCH (10:29)
[2019-06-04] MEDS: ACETAMINOPHEN 325 MG/10.15 ML UDC GT PRN ×2 (10:57→15:33)
--- NOTE | 2019-06-04 11:00 | REP ---
CT abdomen and pelvis with IV but without oral contrast: History: New diagnosis metastatic breast cancer. No comparison CT studies. CT contrast dose: 100 mL of intravenous Isovue 370. CT findings: There are small bilateral pleural effusions which have increased since the 24 May 2019 study. There is considerable atelectasis in the left lower lobe which is a new finding. No focal hepatic or splenic lesion is appreciated. There is a large cyst in the left kidney measuring 10.8 cm in greatest diameter. No hydronephrosis is seen. No renal mass or calculus is observed. Gallbladder is unremarkable. There is a small low-density lesion in the head of the pancreas measuring 1.4 cm in greatest diameter. This is of uncertain significance. There is moderate stool in the colon. The rectum is quite distended with formed stool consistent with fecal impaction obstipation. There is a Pringle catheter in the urinary bladder. A nasogastric tube is seen in the stomach. There is air density within the gallbladder consistent with cholelithiasis. There is a 4.2 x 4.3 cm heterogeneously enhancing mass in the left adnexa consistent with a left ovarian mass lesion. There are multiple metastatic soft tissue nodules both within the abdomen and within the subcutaneous fat in the abdominal wall. There are a few small intramuscular foci of metastatic enhancement. The largest subcutaneous metastasis seen is in the left iliac crest region measuring 1.5 cm in greatest diameter. The peritoneal studding and intra-abdominal foci are scattered in the right and left abdomen. The largest of these is in the left lower quadrant measuring 2.6 cm in greatest diameter. There is also a 2.1 cm deposit between a posterior edge of the liver and the diaphragmatic slip in the right upper quadrant. There is a 1.8 cm deposit lateral to the splenic flexure of the colon. Numerous smaller deposits are scattered throughout the abdominal cavity. There is left colonic diverticulosis. No bony destructive lesion is appreciated. Impression: Fairly numerous extra abdominal and intra-abdominal soft tissue metastatic nodules as described above throughout the upper and lower abdomen and in the extra abdominal soft tissues. There is evidence of fecal impaction in the rectum. There is also a 4.2 cm left ovarian mass which could be metastatic or an ovarian primary lesion. A low-density 1.4 cm lesion is seen in the pancreatic head of uncertain significance. There is a large left renal cyst. There is evidence of cholelithiasis. Electronically Signed by Roque Walker MD 06/04/2019 11:43 A
--- NOTE | 2019-06-04 11:22 | IPN ---
DATE OF SERVICE: 06/04/2019 The patient still complains of generalized weakness, on tube feedings. Swallow evaluation is pending. She is agreeable to obtaining a CT abdomen and pelvis, as well as bone scan, today. Complains of no pain, still with cough, some shortness of breath. Has not been ambulating well. Afebrile overnight. No dysuria, urgency, frequency, epigastric pain, chest pain, pressure, tightness, palpitations, lightheadedness, or dizziness. Temperature 99.2, pulse 98, respiratory rate 22, blood pressure 154/70, 94% trache collar, 30% FIO2. Generally, the patient appears older than her stated age. Appears disheveled. Positive use of respiratory accessory muscles. Drooling at the bedside. Nasogastric tube in the right naris. Moist mucous membranes. Poor dentition. No jugular venous distention (JVD), thyromegaly, cervical lymphadenopathy. Lungs are diminished. Bilaterally with coarse rhonchi. Heart: S1, S2, sinus tachycardia. Abdomen: Is soft, nontender, nondistended. Extremities: No cyanosis or clubbing. LABORATORY DATA: White count 20.8, hemoglobin 11, hematocrit 37, platelet count 299. Sodium 139, potassium 3.9, chloride 101, bicarbonate 35, BUN 27, creatinine 0.6, glucose of 107. Chest x-ray 06/04/2019: Tracheostomy. Increased density inferiorly in the mid and lower left lung. Questionable new small right pleural effusion. Echocardiogram 05/20/2019: Ejection fraction (EF) 75%, grade 1 left ventricular diastolic dysfunction, impaired relaxation filling pattern. ASSESSMENT AND PLAN: This is a 73-year-old female, FULL CODE, status post trache, presented to the emergency room on 05/20/2019 with acute hypoxic respiratory failure requiring mechanical ventilation due to chronic obstructive pulmonary disease (COPD) exacerbation. The patient had a left upper lobe mass and bilateral breast masses, status post biopsy, suspicious for atypical breast cancer. Currently on letrozole, managed by Dr. Blackman, with recommendations for CT abdomen and pelvis and a bone scan. The patient had a trache placed by ears, nose, and throat (ENT) on 06/03/2019. ACUTE ISSUES: Are as follows: 1. Acute on chronic hypoxic respiratory failure with hypoxemia and hypercapnia secondary to end-stage chronic obstructive pulmonary disease exacerbation and pleural effusion. At this time, the patient is doing well, according to Dr. Koo, and is stable for transferring to hospitalist service. She is on broad-spectrum antibiotics with guarded prognosis. On intravenous (IV) Solu-Medrol 20 mg IV every 24 hours and meropenem IV every 6, nebulizer treatments with DuoNebs 3 mL every 4 hours. 2. Chronic obstructive pulmonary disease exacerbation. On methylprednisolone and albuterol every 4 hours. Tobacco cessation counseling has been provided. Nicotine patch, one patch daily, 21 mg. Xanax as needed three times a day for anxiety and morphine for pain. 3. Metastatic breast cancer, atypical. On letrozole per Dr. Blackman with recommendations for CT abdomen and pelvis, as well as bone scan for staging. The patient has poor overall prognosis in light of end-stage COPD and debility. 4. Longstanding tobacco smoking. Currently on nicotine patch and supplemental oxygen. 5. Aspiration risk. Swallow evaluation at the bedside. 6. Protein-calorie malnutrition with albumin of 1.7. Currently on tube feedings. Nutritional consult. 7. Deep venous thrombosis (DVT) prophylaxis with Lovenox 40 mg subcutaneous daily. 8. Diet. Currently on tube feedings via nasogastric tube. Await swallow evaluation. CODE STATUS: Is FULL CODE. DISPOSITION: May transfer to progressive care unit (PCU). [facility]
[2019-06-05] VITALS (29 sets, daily range): BP systolic 96–225; BP diastolic 55–110; O2SAT 97
[2019-06-05] MEDS: IPRATROPIUM 0.5MG/ALBUTEROL 2.5MG INH SOL UD 3ML (DUONEB)(J7620) NEB SCH ×6 (00:31→20:26)
[2019-06-05] MEDS ORDERED: LABETALOL HCL 100 MG/20 ML VIAL IV STA ×2 (00:52→05:11)
[2019-06-05] MEDS ORDERED: LABETALOL HCL 100 MG/20 ML VIAL As Ordered ONE (00:55)
[2019-06-05] MEDS: MORPHINE 2 MG/ML 1ML VIAL (J2270) IV PRN ×2 (01:04→05:26)
[2019-06-05] MEDS: MEROPENEM INJ 1 GM in IV 1 EA IV SCH ×3 (01:05→17:23)
[2019-06-05 04:12] LABS: HEMATOCRIT 37.4 % (36.0-47.0); HEMOGLOBIN 11.8 g/dl (12.0-15.5); MEAN CORPUSCULAR VOLUME 97.4 fl (80.0-96.0); RED BLOOD COUNT 3.84 10^6/uL (4.00-5.40); WHITE BLOOD COUNT 20.7 10^3/uL (4.0-10.0)
[2019-06-05 04:13] LABS: BASO % 0.1 % (0.0-1.0); EOS # 0.3 10^3/uL (0.0-0.5); EOS % 1.6 % (0.0-3.0); LYMPH # 1.3 10^3/uL (1.5-5.0); LYMPH % 6.3 % (24.0-44.0); MEAN CORPUSCULAR HEMOGLOBIN 30.7 pg (27.0-33.0); MEAN CORPUSCULAR HGB CONC 31.6 g/dl (32.0-36.5); MONO # 1.1 10^3/uL (0.0-0.8); MONO % 5.2 % (0.0-5.0); NEUTROPHILS # 17.8 10^3/uL (1.5-8.5); NEUTROPHILS % 86.2 % (36.0-66.0); PLATELET COUNT, AUTOMATED 324 10^3/uL (150-450)
[2019-06-05 04:34] LABS: BLOOD UREA NITROGEN 31 MG/DL (7-18); CALCIUM LEVEL 8.8 MG/DL (8.8-10.2); CARBON DIOXIDE LEVEL 33 MEQ/L (21-32); CHLORIDE LEVEL 100 MEQ/L (98-107); CREATININE FOR GFR 0.56 MG/DL (0.55-1.30); GLOMERULAR FILTRATION RATE > 60.0 (>39); GLUCOSE, FASTING 124 MG/DL (70-100); POTASSIUM SERUM 4.1 MEQ/L (3.5-5.1); SODIUM LEVEL 137 MEQ/L (136-145)
[2019-06-05] MEDS: SLF 3 ML SYR IV SCH ×3 (05:20→22:13)
[2019-06-05 06:00] LABS: ABG HCO3 33.9 MEQ/L (22.0-26.0); ABG O2 SATURATION 99.7 % (95.0-99.0); ABG STANDARD HCO3 28.1 MEQ/L (22.0-26.0); ABG TOTAL CO2 36.4 MEQ/L (23.0-31.0)
[2019-06-05 06:04] LABS: ABG pH (ARTERIAL) 7.234 UNITS (7.350-7.450)
--- NOTE | 2019-06-05 07:38 | REP ---
Portable chest, 06:52 a.m., single frontal view: Comparison is 06/04/2019. The increased density inferiorly in the left lung has slightly decreased in density. There is effacement of the left costophrenic angle, this is unchanged and suggests a left pleural effusion. The slight effacement right costophrenic angle is unchanged, possibly a small right pleural effusion. Right lung otherwise clear. The cardiac size is normal. The tracheostomy and nasogastric tube remain in satisfactory positions, unchanged. Impression: No significant interval change. Electronically Signed by Sherman Guardado MD 06/05/2019 07:30 A
[2019-06-05] MEDS ORDERED: BISACODYL 10 MG SUPP PR PRN (09:00)
--- NOTE | 2019-06-05 09:42 | IPN ---
PULMONARY CRITICAL CARE PROGRESS NOTE: DATE OF VISIT: 06/05/2019 I again attended Shruthi Valdovinos here in the intensive care unit. The patient has been examined and chart reviewed. I spoke in length with the nurse at the bedside. I spoke with the primary service in the wee hours of this morning. In essence, she fatigued off the ventilator. I had this discussion with her prior, but she wished to try to stay off. Apparently this was unsuccessful. Earlier this morning, she was noted to have increased work of breathing. Blood gas done at that time had a pH 7.234, pCO2 82.0 and a pO2 of 214. She was moved to the intensive care unit (ICU) and placed on mechanical ventilatory support. Initially did not tolerate synchronized intermittent mandatory ventilation (SIMV) mode, is now on pressure regulated volume control (PRVC) and doing quite well on that. She is quite comfortable. I had a long discussion with her and this will be detailed further below. Maximum temperature (Tmax) overnight 98.7, blood pressure 101-220 systolic, heart rate 60-90s. Respiratory rate currently about 24 without obvious accessory muscle use. Ins and outs midnight to midnight 2550 mL in, 950 mL out. White blood cell count 20.7, hemoglobin 11.8, platelet count 324,000, 86% segs, no bands. Sodium 137, potassium 4.1, chloride 100, CO2 33, BUN 31, creatinine 0.56. Repeat blood gas is pending. Chest x-ray shows no new real findings. I do believe there is some infiltrate at the left base. CT of the abdomen and pelvis from yesterday shows what is most likely a right ovarian primary with multiple metastases. There is some infiltrate at the left base with consolidation of that area as well as some small bilateral effusions. On exam, she is awake, alert and appropriate. Quite comfortable. Pupils react, sclerae are clear and trach site clean and dry. There is a nasogastric (NG) tube in place. Chest shows diminished with symmetric expansion, a little more diminished at the left base. Occasion rhonchus clears with suctioning. No focal adventitious breath sounds are identified. Cardiac exam distant, generally regular. Peripheral pulses palpable. Trace edema. Abdomen is soft, obese, nontender with active bowel sounds. Extremities without cyanosis or clubbing. Neurologically, she is awake, alert and appropriate, and moves all extremities. Psychiatric generally with normal mood and affect. IMPRESSION: 1. Acute on chronic respiratory failure. 2. Advanced obstructive lung disease. 3. Previous tobacco abuse. 4. Metastatic cancer most likely ovarian primary at this point, awaiting final input from oncology. RECOMMENDATIONS: At this point, I spoke at length with her. We will rest her on the vent today and then tomorrow start trach collar trials on and off. My hopes is that when she start hormone therapy for her tumor we will be able to make some progress as far her conditioning. We will restart her tube feeds. We will start cathartics. She is on ulcerative deep venous thrombosis (DVT) prophylaxis through the primary service. Physical therapy (PT) and occupational therapy (OT) still remain involved in her care. I spoke with the primary service regarding her. She will be continued to be followed as she is here in the hospital with the above plan. Further recommendations will be made in the progress record as new information becomes available.
[2019-06-05] MEDS: ALPRAZolam 0.25 MG TAB PO SCH ×3 (09:50→20:53)
[2019-06-05] MEDS: PANTOPRAZOLE 40MG INJ (PROTONIX) (C9113) IV SCH (09:51)
[2019-06-05] MEDS: NICOTINE 21MG/24HR 1 EA TRANSDERMAL TD SCH (09:51)
[2019-06-05] MEDS: CHLORHEXIDINE GLUCONATE 0.12 % 15ML UDC (PERIDEX ORAL RINSE) MT SCH ×2 (09:51→20:53)
[2019-06-05] MEDS: ENOXAPARIN 40 MG/0.4 ML SYRINGE (J1650) SC SCH (09:51)
[2019-06-05] MEDS: LETROZOLE GT SCH (09:52)
[2019-06-05] MEDS: methylPREDNISolone INJ 40 MG/1 ML VIAL (J2920) IV SCH (10:01)
--- NOTE | 2019-06-05 13:10 | IPN ---
DATE OF SERVICE: 06/05/2019 The patient developed increasing respiratory distress with increased secretions and was emergently placed back on the vent via her tracheostomy. Arterial blood gas shows acute respiratory acidosis with hypercapnic respiratory failure, pH of 7.23, and CO2 of 82.0 managed by horse breaker. Sputum culture grew out yeast like organism. The patient this morning says that her breathing is improved, still with cough and increased secretions. No fever or chills. No chest pain or pressure. T- max of 100.8 yesterday. Generally, the patient appears older than her stated age. Positive respiratory distress. Tracheostomy. No cyanosis. Positive use of respiratory accessory muscles. Unable to speak fluently, whispering at the bedside. No stridor. Trach in place. Non-deviated trachea. Lungs are diminished with coarse rhonchi. Heart S1, S2, sinus rhythm. Abdomen soft, nontender, nondistended. Extremities no cyanosis or clubbing. LABORATORY DATA: Arterial blood gas 7.23 pH, CO2 82, 02 214. White count 20, hemoglobin 11.8, hematocrit 37, platelet count 324. Sodium 137, potassium 4, chloride 100, bicarbonate 33, BUN 31, creatinine 0.5, glucose of 124. Chest x-ray 06/05/2019 no interval change, increased density, slight decrease in density, effacement of the left costophrenic angle unchanged, suggesting left pleural effusion. Right lung is otherwise clear. Tracheostomy and the NG tube in satisfactory position. ASSESSMENT AND PLAN: This is a 73-year-old female, active tobacco user, end stage chronic obstructive pulmonary disease (COPD), FULL CODE, presented to the emergency room with acute hypoxic and hypercapnic respiratory failure due to COPD exacerbation requiring mechanical ventilation. Due to chronic hypoxia, patient required tracheostomy which was placed during this admission. The patient has been on broad spectrum antibiotics with intravenous meropenem, was found to have metastatic lesions from possible primary ovarian source. The patient was extubated, sputum culture grew out yeastlike organism. Patient had to be placed back on the ventilator due to increased fatigue and respiratory acidosis. Active issues are as follows: 1. Acute on chronic hypoxic respiratory failure with hypercapnia secondary to end-stage COPD, currently on Solu-Medrol IV 24 hours. Patient is back on the ventilator managed by horse breaker due to severe hypercapnia. She is on broad spectrum coverage with meropenem. Sputum culture only grew out yeast like organism. She is continued on DuoNebs, trach care due to sinus aspiration still with nasogastric tube feedings. 2. COPD exacerbation still on methylprednisolone and albuterol every 4 hours, nicotine patch, Xanax as needed, morphine for pain. 3. Metastatic probable ovarian malignancy with status post fine needle biopsy of left upper lobe mass with metastatic adenocarcinoma, probable breast versus ovarian, managed by Dr. Blackman, oncologist, currently on letrozole. Staging studies could not be performed due to the patient's frail status and sudden respiratory decompensation. Recommendations are for bone scan and CT abdomen and pelvis to be done for staging. Laboratory data and imaging studies have been performed. CT abdomen and pelvis 4.2 cm left ovarian mass which could be metastatic or an ovarian primary lesion, low density 1.4 in pancreatic head of uncertain significance, large left renal cyst, cholelithiasis, fecal impaction in the rectum. 4. CODE STATUS: FULL CODE. 5. Diet. On tube feedings via nasogastric tube. 6. Protein calorie malnutrition. Albumin of 1.7 on nasogastric tube. MTDD
[2019-06-06] VITALS (26 sets, daily range): BP systolic 85–173; BP diastolic 46–79
[2019-06-06] MEDS: MEROPENEM INJ 1 GM in IV 1 EA IV SCH ×3 (01:07→18:35)
[2019-06-06] MEDS: IPRATROPIUM 0.5MG/ALBUTEROL 2.5MG INH SOL UD 3ML (DUONEB)(J7620) NEB SCH ×7 (01:35→23:37)
[2019-06-06 04:38] LABS: BASO % 0.1 % (0.0-1.0); EOS # 0.3 10^3/uL (0.0-0.5); EOS % 2.1 % (0.0-3.0); HEMATOCRIT 33.9 % (36.0-47.0); HEMOGLOBIN 10.6 g/dl (12.0-15.5); LYMPH # 1.7 10^3/uL (1.5-5.0); LYMPH % 10.7 % (24.0-44.0); MEAN CORPUSCULAR HGB CONC 31.3 g/dl (32.0-36.5); MONO # 1.1 10^3/uL (0.0-0.8); MONO % 7.1 % (0.0-5.0); NEUTROPHILS # 12.7 10^3/uL (1.5-8.5); PLATELET COUNT, AUTOMATED 311 10^3/uL (150-450); RED BLOOD COUNT 3.53 10^6/uL (4.00-5.40)
[2019-06-06 04:57] LABS: BLOOD UREA NITROGEN 30 MG/DL (7-18); CALCIUM LEVEL 8.4 MG/DL (8.8-10.2); CARBON DIOXIDE LEVEL 33 MEQ/L (21-32); CHLORIDE LEVEL 100 MEQ/L (98-107); CREATININE FOR GFR 0.55 MG/DL (0.55-1.30); GLOMERULAR FILTRATION RATE > 60.0 (>39); GLUCOSE, FASTING 116 MG/DL (70-100); POTASSIUM SERUM 3.8 MEQ/L (3.5-5.1); SODIUM LEVEL 136 MEQ/L (136-145)
[2019-06-06] MEDS: ACETAMINOPHEN 325 MG/10.15 ML UDC GT PRN (05:46)
[2019-06-06] MEDS: SLF 3 ML SYR IV SCH ×3 (06:12→21:25)
[2019-06-06 08:41] LABS: ABG BASE EXCESS 9.1 (-2.0-2.0); ABG HCO3 33.3 MEQ/L (22.0-26.0); ABG O2 SATURATION 96.5 % (95.0-99.0); ABG PARTIAL PRESSURE O2 78.8 mmHg (75.0-100.0); ABG STANDARD HCO3 32.9 MEQ/L (22.0-26.0); ABG TOTAL CO2 34.7 MEQ/L (23.0-31.0); ABG pH (ARTERIAL) 7.497 UNITS (7.350-7.450)
[2019-06-06] MEDS: LETROZOLE GT SCH (08:46)
[2019-06-06] MEDS: ALPRAZolam 0.25 MG TAB PO SCH ×3 (08:47→21:24)
[2019-06-06] MEDS: PANTOPRAZOLE 40MG INJ (PROTONIX) (C9113) IV SCH (08:47)
[2019-06-06] MEDS: CHLORHEXIDINE GLUCONATE 0.12 % 15ML UDC (PERIDEX ORAL RINSE) MT SCH ×2 (08:47→21:24)
[2019-06-06] MEDS: ENOXAPARIN 40 MG/0.4 ML SYRINGE (J1650) SC SCH (08:48)
[2019-06-06] MEDS: NICOTINE 21MG/24HR 1 EA TRANSDERMAL TD SCH (08:48)
--- NOTE | 2019-06-06 09:12 | IPN ---
DATE OF SERVICE: 06/06/2019 SUBJECTIVE: Per nursing, the patient still remains with significant amount of secretions. Sputum culture grew out yeastlike organism. Currently, still on meropenem. Afebrile. No chills. The patient is awake. Has no pain. Responding to commands. Afebrile overnight. Still on tube feedings. No residual. Temperature 99.1, pulse 88, respiratory rate 19, blood pressure 126/62, 97% on ventilator at 35% FIO2 via tracheostomy. Input and output: 2210. Input and output 555. Current weight is 64 kg with admission weight of 62.2 kg. Generally, the patient is trached and ventilated. Nasogastric tube along the right naris. No jugular venous distention (JVD). No thyromegaly. She is responsive and awake, following commands. No stridor on examination. Dry mucous membranes. Lungs are diminished with coarse breath sounds. Heart S1, S2, sinus rhythm. Abdomen soft, nontender, nondistended. Positive bowel sounds. Extremities: No cyanosis or clubbing. LABORATORY DATA: White count 16, hemoglobin 10, hematocrit 33, platelet count 311. Sodium 136, potassium 3.8, chloride 100, bicarbonate 33, BUN 30, creatinine 0.55, glucose of 116. Sputum culture 06/03/2019: Yeastlike organism. Respiratory panel 05/20/2019 is negative. IMAGING STUDIES: Chest x-ray 06/05/2019 show no significant change. Trache and nasogastric (NG) tube in satisfactory position. Right costophrenic angle with slight effacement, a small right pleural effusion. Otherwise, the right lung is clear. Increased density inferiorly, and the lung has decrease in density. ASSESSMENT AND PLAN: This is a 73-year-old female, active smoker prior to admission, end-stage chronic obstructive pulmonary disease (COPD), FULL CODE, admitted on 05/20/2019 due to shortness of breath, brought in by ambulance with complaints of 4 days of cough productive of sputum. The patient had been treated for COPD exacerbation with Medrol dosepak and doxycycline, as well as inhaler and two separate urgent care visits with worsening complaints. She had recently been given antibiotic for some tooth pain, complaint of back pain and chest pain. In the emergency room (ER), she was emergently intubated, given antibiotics Lasix, placed on noninvasive positive pressure ventilation (NIPPV), and subsequently intubated due to worsening hypercapnic and hypoxic respiratory failure. The patient was under the care of an wooling machine operator, Dr. Valdez, for COPD exacerbation with acute hypercapnic hypoxic respiratory failure. Was found to have a left upper lobe mass on CT chest, bilateral breast nodules, and underwent breast biopsy. The patient was found to have a malignancy. Seen by Dr. Blackman, oncologist, who recommended CT abdomen and pelvis and bone scan. The patient was started on letrozole. Pathology shows metastatic adenocarcinoma, strongly positive, likely breast is primary. PLAN: 1. Acute on chronic hypoxic and hypercapnic respiratory failure, status post tracheostomy with increasing respiratory distress and worsening hypercapnia, currently still on ventilator managed by chrome plater, Dr. Koo. The patient had to be transferred back to intensive care unit (ICU) level. She is still on intravenous (IV) meropenem. Sputum culture grew out yeast. No other bacterial infection. Repeat chest x-ray is unchanged with persistent right pleural effusion. 2. Chronic obstructive pulmonary disease exacerbation, on steroids. Ventilated. Currently managed by chrome plater. 3. Metastatic cancer, most likely ovarian. Awaiting further recommendations from her oncologist. 4. Diet. Still on tube feedings. 5. Deep venous thrombosis (DVT) prophylaxis with compression stockings. 6. Active tobacco use. Currently on nicotine patch. Tobacco cessation counseling has been provided. 7. Anxiety. On Xanax 0.25 three times a day. 8. Ulcer prophylaxis. On Protonix intravenously. MTDD
--- NOTE | 2019-06-06 10:23 | CCN ---
DATE OF SERVICE: 06/06/2019 I again attended Yessy Valdovinos here in the intensive care unit. The patient has been examined and chart reviewed. She is awake, alert, and appropriate. She is quite comfortable on the ventilator at the moment and is synchronous with it. Maximum temperature (Tmax) overnight 99.1, blood pressure 97-170 systolic, heart rate generally in the 70s-90s with a sinus mechanism. Intake and output (I and O) midnight to midnight 2210 mL in with 555 mL out. Sodium 136, potassium of 3.8, chloride of 100, CO2 32, BUN 30, creatinine 0.55, glucose of 116. White blood cell count 16, hemoglobin 10.6, platelet count 311,000, 79% segmented neutrophils, no bands. Blood gas done this morning on a pressure-regulated volume control (PRVC) rate of 15, tidal volume 380, PEEP of 5, FIO2 of 35%, pH 7.497, PCO2 of 44, pAO2 of 78.8. No new imaging this morning. On examination, she is awake, alert, and appropriate. Psychiatric examination with normal affect. Trache site clean and dry. Chest shows good symmetric expansion. No focal adventitious breath sounds this morning except maybe a little bit diminished at the left base. Cardiac examination: Distant but regular. Peripheral pulses palpable. Minimal edema at best. Abdomen is soft, nontender, with active bowel sounds. Extremities without cyanosis or clubbing. Neurologically, she is awake, alert, and appropriate. The most pressing problems requiring my presence at the bedside: 1. Acute on chronic respiratory failure. 2. Malclearance of secretions. 3. Suspected left lower lobe infiltrate. 4. Stage IV what appears to be ovarian cancer. At this point, we will change her to an intermittent mechanical ventilation (IMV) mode and push her wean a little more slowly this time. She has much less difficulty with secretions today. We await institution of therapy by oncology, and my suspicion is this will be hormone-based. She is tolerating tube feeds at goal. Ulcer and deep venous thrombosis (DVT) prophylaxis are in place. At this point, we will proceed as outlined above. My hope is that we can achieve trache collar trials again in the next 24-48 hours. Further recommendations will be made in the progress record as new information becomes available.
[2019-06-06] MEDS: methylPREDNISolone INJ 40 MG/1 ML VIAL (J2920) IV SCH (10:31)
[2019-06-06] MEDS: SENOKOT S TAB PO SCH ×2 (20:30→21:24)
[2019-06-07] VITALS (24 sets, daily range): BP systolic 93–160; BP diastolic 52–75; O2SAT 96
[2019-06-07] MEDS: MEROPENEM INJ 1 GM in IV 1 EA IV SCH (01:15)
[2019-06-07] MEDS: IPRATROPIUM 0.5MG/ALBUTEROL 2.5MG INH SOL UD 3ML (DUONEB)(J7620) NEB SCH ×6 (04:07→23:07)
[2019-06-07 04:20] LABS: BASO % 0.1 % (0.0-1.0); EOS # 0.3 10^3/uL (0.0-0.5); EOS % 1.7 % (0.0-3.0); HEMATOCRIT 32.1 % (36.0-47.0); HEMOGLOBIN 10.4 g/dl (12.0-15.5); LYMPH # 1.9 10^3/uL (1.5-5.0); LYMPH % 11.8 % (24.0-44.0); MEAN CORPUSCULAR HEMOGLOBIN 30.9 pg (27.0-33.0); MEAN CORPUSCULAR HGB CONC 32.4 g/dl (32.0-36.5); MEAN CORPUSCULAR VOLUME 95.3 fl (80.0-96.0); MONO # 1.2 10^3/uL (0.0-0.8); MONO % 7.7 % (0.0-5.0); NEUTROPHILS # 12.2 10^3/uL (1.5-8.5); NEUTROPHILS % 77.1 % (36.0-66.0); PLATELET COUNT, AUTOMATED 298 10^3/uL (150-450); RED BLOOD COUNT 3.37 10^6/uL (4.00-5.40); WHITE BLOOD COUNT 15.8 10^3/uL (4.0-10.0)
[2019-06-07 04:42] LABS: BLOOD UREA NITROGEN 28 MG/DL (7-18); CALCIUM LEVEL 8.4 MG/DL (8.8-10.2); CARBON DIOXIDE LEVEL 31 MEQ/L (21-32); CHLORIDE LEVEL 100 MEQ/L (98-107); CREATININE FOR GFR 0.51 MG/DL (0.55-1.30); GLOMERULAR FILTRATION RATE > 60.0 (>39); GLUCOSE, FASTING 114 MG/DL (70-100); POTASSIUM SERUM 3.9 MEQ/L (3.5-5.1); SODIUM LEVEL 136 MEQ/L (136-145)
[2019-06-07] MEDS: SLF 3 ML SYR IV SCH ×3 (06:01→21:23)
[2019-06-07 06:10] LABS: ABG BASE EXCESS 9.3 (-2.0-2.0); ABG HCO3 33.1 MEQ/L (22.0-26.0); ABG O2 SATURATION 97.3 % (95.0-99.0); ABG PARTIAL PRESSURE CO2 41.7 mmHg (35.0-45.0); ABG PARTIAL PRESSURE O2 81.5 mmHg (75.0-100.0); ABG STANDARD HCO3 33.1 MEQ/L (22.0-26.0); ABG TOTAL CO2 34.3 MEQ/L (23.0-31.0); ABG pH (ARTERIAL) 7.517 UNITS (7.350-7.450)
--- NOTE | 2019-06-07 07:59 | REP ---
Portable chest, 06:54 a.m., single AP view with the patient semi upright: Comparison is 06/05/2019. The bilateral pleural effusions are unchanged. Lung woods otherwise clear and unchanged. Cardiac size is normal. The tracheostomy and nasogastric tube remain in satisfactory positions, unchanged. Impression: There is no significant interval change. Electronically Signed by Sherman Guardado MD 06/07/2019 07:50 A
[2019-06-07] MEDS: SENOKOT S TAB PO SCH ×2 (08:43→20:04)
[2019-06-07] MEDS: PANTOPRAZOLE 40MG INJ (PROTONIX) (C9113) IV SCH (08:43)
[2019-06-07] MEDS: NICOTINE 21MG/24HR 1 EA TRANSDERMAL TD SCH (08:43)
[2019-06-07] MEDS: CHLORHEXIDINE GLUCONATE 0.12 % 15ML UDC (PERIDEX ORAL RINSE) MT SCH ×2 (08:43→20:04)
[2019-06-07] MEDS: ALPRAZolam 0.25 MG TAB PO SCH (08:44)
[2019-06-07] MEDS: ENOXAPARIN 40 MG/0.4 ML SYRINGE (J1650) SC SCH (08:44)
[2019-06-07] MEDS: LETROZOLE GT SCH (08:44)
[2019-06-07] MEDS ORDERED: MOM 30ML SUSPENSION UDC PO PRN (09:00)
[2019-06-07] MEDS ORDERED: FLEET ENEMA PR PRN (09:00)
--- NOTE | 2019-06-07 10:28 | IPN ---
DATE: 06/07/2019 The patient appears to be much more comfortable. No use of respiratory accessory muscles. Still with trache. The patient had to be suctioned three times yesterday with thick copious amount of white secretions. She had two small bowel movements yesterday but still very uncomfortable, according to nursing. She is following commands. Awake and alert. No chest pain, pressure or tightness. No palpitations or lightheadedness. Has not been out of bed. Complains of generalized weakness. PHYSICAL EXAMINATION: Vital signs: Temperature 99, pulse 97, respiratory rate 26, blood pressure 130/63, 97% on trache, 35% FiO2. GENERAL: Awake, alert, oriented. Has a trache. Nasogastric tube exiting the right naris. Following commands. No stridor. Dry mucous membranes. LUNGS: Diminished, coarse rhonchi. HEART: S1, S2. Sinus rhythm. ABDOMEN: Soft, nontender, nondistended. Positive bowel sounds in all four quadrants. EXTREMITIES: No edema, cyanosis or clubbing. LABORATORY DATA: White count 15.8, hemoglobin 10, hematocrit 32, platelet count 298. Sodium 136, potassium 3.9, chloride 100, bicarbonate 31, BUN 28, creatinine 0.7, glucose 114. Repeat chest x-ray 06/07/2019 showed no significant interval change. Lungs are clear, unchanged. Cardiac size is normal. Trache and nasogastric tube are in satisfactory position. ASSESSMENT AND PLAN: 73-year-old female with a history of active smoking prior to admission, congestive heart failure (CHF), chronic obstructive pulmonary disease (COPD), admitted on 05/20/2019 due to shortness of breath, brought in by ambulance. She was treated for chronic obstructive pulmonary disease (COPD) exacerbation with multiple doses of doxycycline and inhalers after urgent care visit with worsening of symptoms. In the emergency room, she was intubated, given antibiotics, Lasix and was under the care of the money examiner, Dr. Valdez, for worsening acute on chronic hypoxic and hypercapnic respiratory failure. CT of the chest showed left upper lobe mass with bilateral nodules. Underwent biopsy and was found to have a malignancy and is now managed by Dr. Blackman, oncologist, with ovarian mass noted on CT of the abdomen. She was started on letrozole with metastatic adenocarcinoma positive, likely ovarian. PLAN: 1. Acute on chronic hypercapnic respiratory failure. Has tracheostomy with increasing respiratory distress and worsening hypercapnia. THe patient had to be placed back on vent to rest her as she was tiring out. Sputum culture grew out yeast and she is on IV meropenem. Repeat chest x-ray showed lungs clear. 2. Chronic obstructive pulmonary disease (COPD) exacerbation. On steroids, presently managed by boat dispatcher. Supplemental oxygen. 3. Metastatic adenocarcinoma, most likely ovarian. Currently on chemotherapy managed by Dr. Blackman. 4. Diet. On tube feedings. Nothing by mouth status. Aspiration risk. Head of bed at 45 degrees at all times. 5. Deep vein thrombosis (DVT) prophylaxis with compression stockings. 6. Active tobacco abuse. Nicotine patch. Cessation counseling provided. 7. Anxiety. On Xanax. 8. Ulcer prophylaxis. On proton pump inhibitor. MTDD
--- NOTE | 2019-06-07 11:26 | IPNPDOC ---
Text Note Date of Service The patient was seen on 06/07/19. NOTE S: Patient is 73-year-old female on day 19 of her hospital stay, currently in t ICU 7 days status post tracheostomy placement. Patient remains on ventilator for her chronic respiratory failure, and is unknown how much secondary to her underlying lung process how much this is secondary to her lung metastatic disease. Overnight patient had 2 bowel movements, and had 2 more bowel movements morning status post adjustment of her scheduled bowel regimen. Nursing notes mild mace ration around the tracheostomy site and DuoDERM was placed on the site. Patient remained on SIMV, tidal volume 380, management ventilation rate of 10, PEEP of 5, fractional inspired oxygen 35%, with pressure support of 12 over PEEP. This morning patient was transitioned to pressure support mode with a pressure support of 12 over PEEP, and PEEP of 5. Patient is tolerating this well with tidal volumes from the high 200s to the mid 400s. Ordered end-tidal CO2 to monitor how well she tolerates this. O: Physical exam Vital signs: MAXIMUM TEMPERATURE 99.9, blood pressure 100-140 systolic, pulse 80 s to 90s, respiratory rate 22-25, SPO2 96-99%, input and output +900 yesterday. Gen.: Patient is a pleasant elderly female who appears older than stated age, with tracheostomy in place on ventilator support. HEENT: Mucous membranes moist, pupils equal round react to light and accommodation, extra ocular movements intact. Neck: Tracheostomy tube in place, with mild erythema and mucus surrounding tr acheostomy site, sutures in place. Mild tenderness when examining tracheostomy site. No JVD, no cervical lymphadenopathy. Cardiovascular: Heart sounds regular rate and rhythm, normal S1, normal S2, no murmurs gallops or rubs appreciated. Respiratory: Lungs clear to auscultation the right, mildly decreased breath sounds at the left lower lung woods. No wheezes, rhonchi or crackles heard. Prolonged expiratory phase. Abdomen: Soft, nontender, nondistended, no rebound, guarding. No peritoneal signs. Small subcutaneous nodule left lower abdominal wall. Extremities: 2+ distal pulses in all 4 extremities, trace lower extremity edema, normal capillary refill. Neuro: Patient is awake, alert, and oriented. Patient communicates through mouthing words, and through writing with pen and paper. Patient moves all 4 extremities, and denies decreased sensation. Labs: Patient's white blood cell count was 15,800, trending downward, likely secondary to her corticosteroid use. Patient's hemoglobin and hematocrit also trending downward at 10.4/ 32.1%. Likely dilutional. ABG showed mild respiratory alkalosis with pH of 7.517, partial pressure carbon dioxide of 41.7, and partial pressure oxygen 81.5, and bicarbonate of 34.3. This is likely secondary to the SIMV settings overnight and increased mandatory minute ventilation. Imaging: Chest x-ray shows improvement from June 05, still with some atelectasis and pleural effusion in the left lower lung, mild pleural effusion in the right lower lung. Assessment: 73-year-old female who presented to the hospital for acute on chronic hypercapnic respiratory failure likely secondary to severe obstructive lung disease, with some metastatic disease involvement. She is currently on day 19 of her hospital stay, in the ICU, on ventilation with pressure support settings at 15 over 5, tolerating well. 1. Acute on chronic hypercapnic respiratory failure 2. Metastatic ovarian cancer 3. Anxiety Plan: We will continue patient on the ventilator with pressure support at 15 over 5 and follow patient's end-tidal CO2 to monitor her progress. Continue duo nebs every 4 hours as needed. Our hope is to eventually take patient off of pressure support and have her ventilate with Passy-Mary valve, as patient tolerates. We have discontinued steroids as refilled with tapered her sufficiently. We have changed her alprazolam from scheduled 3 times a day to when necessary. We have discontinued her meropenem antibiotics as her chest x-ray is improved, her progr ess time was negative, and she is breathing better. Patient should be able to take by mouth liquids as her breathing improves and she tolerates it. Continue with letrozole 2.5 mg daily as recommended by Dr. Blackman, oncology. Agree with plan for Dr. Blackman to discuss prognosis with patient and family. We will speak with ENT regarding tracheostomy suture care. Thank you for allowing us to participate in the care of this patient. I (Luli Mauricio) have seen the patient and participated in the rizzo portions of the history, physical exam and medical decision making. She is debilitated and anxious. We will cautiously withdraw ventilatory support as she is able to tolerate and advance diet. Her lung disease is very advanced and it is difficult to say how much of a role the extensive malignancy is playing in her respiratory impairment. She will require significant support going forward. VS,Fishbone, I+O VS, Fishbone, I+O Laboratory Tests 06/07/19 04:02 Vital Signs Date Time Temp Pulse Resp B/P (MAP) Pulse Ox O2 Delivery O2 Flow Rate FiO2 06/07/19 10:00 103 160/75 (103) 95 Ventilator 35 06/07/19 08:00 99.0 23 06/05/19 04:10 8.0 I&O- Last 24 Hours up to 6 AM 06/07/19 06:00 Intake Total 1800 ml Output Total 1060 ml Balance 740 ml GME ATTESTATION GME ATTESTATION My faculty preceptor for this patient encounter was physically present during the encounter and was fully available. All aspects of the patient interview, examination, medical decision making process, and medical care plan development were reviewed and approved by the faculty preceptor. The faculty preceptor is aware and concurs with the plan as stated in the body of this note and will attest to such by his/her cosignature. ROCIO WEST [facility]-III Jun 07, 2019 11:26 Everton Rockwell DO, [facility] Jun 07, 2019 14:29
[2019-06-07] MEDS: ALPRAZolam 0.25 MG TAB PO PRN (13:45)
--- NOTE | 2019-06-07 15:20 | IPNPDOC ---
Text Note Date of Service The patient was seen on 06/07/19. NOTE OTOLARYNGOLOGY PROCEDURE NOTE: Procedure: Tracheostomy tube change. Indications for the procedure: This is a 73-year-old female with history of tracheostomy for vent-dependent r espiratory failure. She is postop day 7 from her trach tracheostomy tube changes indicated Description of the procedure: Consent was obtained, the patient was laid flat in her bed in the supine positi on. She had a size 6. FEN trach in place. The stay sutures were removed and the vent was held. The balloon on the trach was let down and the trach was removed. The trach stoma appeared healthy. The airway was suctioned with a 14 Ukrainian suction. Next, a size 6 [employer] trach was placed into the stoma and position was confirmed using 14 Ukrainian suction in the airway. The patient was then connected back to the ventilator and tolerated the procedure well. VS,Fishbone, I+O VS, Fishbone, I+O Laboratory Tests 06/07/19 04:02 Vital Signs Date Time Temp Pulse Resp B/P (MAP) Pulse Ox O2 Delivery O2 Flow Rate FiO2 06/07/19 14:00 97 111/56 (74) 99 Ventilator 35 06/07/19 12:00 98.8 20 06/05/19 04:10 8.0 I&O- Last 24 Hours up to 6 AM 06/07/19 06:00 Intake Total 1800 ml Output Total 1060 ml Balance 740 ml JUAN C ESPARZA MD Jun 07, 2019 15:20
[2019-06-07] MEDS: ACETAMINOPHEN 325 MG/10.15 ML UDC GT PRN (15:27)
[2019-06-08] VITALS (15 sets, daily range): BP systolic 97–163; BP diastolic 53–80; O2SAT 95–97
[2019-06-08] MEDS: IPRATROPIUM 0.5MG/ALBUTEROL 2.5MG INH SOL UD 3ML (DUONEB)(J7620) NEB SCH ×2 (04:12→07:18)
[2019-06-08] MEDS: SLF 3 ML SYR IV SCH ×3 (06:22→20:59)
[2019-06-08] MEDS: ACETAMINOPHEN 325 MG/10.15 ML UDC GT PRN ×2 (07:55→21:00)
[2019-06-08] MEDS: CHLORHEXIDINE GLUCONATE 0.12 % 15ML UDC (PERIDEX ORAL RINSE) MT SCH ×2 (08:13→20:42)
[2019-06-08] MEDS: PANTOPRAZOLE 40MG INJ (PROTONIX) (C9113) IV SCH (08:13)
[2019-06-08] MEDS: NICOTINE 21MG/24HR 1 EA TRANSDERMAL TD SCH (08:13)
[2019-06-08] MEDS: LETROZOLE GT SCH (08:14)
[2019-06-08] MEDS: ENOXAPARIN 40 MG/0.4 ML SYRINGE (J1650) SC SCH (08:14)
[2019-06-08] MEDS: SENOKOT S TAB PO SCH ×2 (08:14→20:41)
[2019-06-08] MEDS: ALPRAZolam 0.25 MG TAB PO PRN ×2 (08:24→21:04)
[2019-06-08] MEDS ORDERED: IPRATROPIUM 0.5MG/ALBUTEROL 2.5MG INH SOL UD 3ML (DUONEB)(J7620) NEB PRN (08:45)
[2019-06-08] MEDS: FORMOTEROL FUMARATE 20 MCG/2 ML INHALATION SOLUTION (PERFOROMIST) INH SCH ×2 (11:34→19:33)
[2019-06-08] MEDS: BUDESONIDE 0.5 MG/2 ML INHALATION SUSPENSION INH SCH ×2 (11:34→19:33)
--- NOTE | 2019-06-08 13:05 | IPN ---
MEDICAL ONCOLOGY PROGRESS NOTE DATE OF ENCOUNTER: IDENTIFICATION AND CHIEF COMPLAINT: Shruthi Valdovinos is a shelly 73-year-old woman seen in the intensive care unit while on mechanical ventilation via tracheostomy, who reports via hand signing and writing, "I'm comfortable, and thank you for coming." The patient is seen together with her son, Jagdish. HISTORY OF PRESENT ILLNESS: Shruthi Valdovinos is a shelly 73-year-old woman with a history of chronic obstructive pulmonary disease as well as cardiac disease who presented to the emergency department at [facility] on the morning of 05/20/2019, with chief complaint of profound dyspnea accompanied by cough. The patient required endotracheal intubation and mechanical ventilation and has been in the intensive care unit since admission. Following admission, imaging studies showed widely metastatic neoplasm, including a tumor mass in the left upper lobe of the lung eroding into the chest wall along with subcutaneous nodules including in the right breast. Subsequent CT scan of the abdomen and pelvis showed a large right ovarian mass measuring approximately 4.2 cm in maximal dimension. On 05/27/2019, fine-needle aspirates were performed both of the subcutaneous hip nodule as well as the left upper lobe lung mass. Core biopsies reported metastatic adenocarcinoma, with the written impression that this was likely from a breast primary. Tumor cells were strongly positive for estrogen receptors. She was subsequently started on letrozole as a single-agent. She has since had episodes of exacerbation of her respiratory failure despite tracheostomy. However, this morning she is comfortable. The patient's son, Jagdish, is at the bedside. ALLERGIES: The patient has history of allergy to PENICILLINS. CURRENT MEDICATIONS: - Xopenex nebulizer therapy q.4 h p.r.n. - Pulmicort 0.5 mg inhalation therapy b.i.d. - Perforomist 20 mcg inhalation twice daily - letrozole 2.5 mg per G tube daily - morphine sulfate 1 mg intravenously every 2 hours p.r.n. moderate pain - Nicoderm patch 21 mg to skin daily - enoxaparin 40 mg subcutaneously daily - pantoprazole 40 mg intravenously daily PAST MEDICAL HISTORY: The patient has a past history significant for emphysema. She is 3, para 3 and status post section. There is history of dysplidemia, and history of longstanding hypertension complicated by heart disease. There is also a history of thoracic spine disease. SOCIAL HISTORY: Tobacco: The patient smoked up to one pack per day for approximately 50 years and continued to use tobacco until this admission. Alcohol: The patient does not use alcohol regularly. Illicit Drugs: There is no history of illicit drug use. FAMILY HISTORY: The patient's father at the age of approximately 85 from complications of Alzheimer disease. The patient's mother at age 75 approximately, from aggressive lymphoma with central nervous system involvement. The patient's mother had been under the care of Dr. Richardson. REVIEW OF SYSTEMS: Neurologic: No history of head trauma, seizure disorder or tremor. Respiratory: The patient is maintained on mechanical ventilation via tracheostomy. No prior history of mechanical ventilation. There is a documented history of emphysema. No chest pain per the patient's report. Cardiac: No history of myocardial infarction. No exertional chest pressure prior to admission by report. Echocardiogram performed 05/20/2019 showed left ventricular ejection fraction of 75% by estimate, with grade 1 left ventricular diastolic dysfunction. Mild mitral annular calcification was noted with no mitral regurgitation. No history of orthopnea. Gastrointestinal: No recent nausea, vomiting, abdominal pain or diarrhea. No history of hepatitis. Musculoskeletal: The patient is noted to have degenerative joint disease and osteoporotic changes on imaging studies. There is evidence of tumor eroding into the chest wall as noted above. No recent fractures. Constitutional: The patient reports fatigue but is otherwise without fevers, chills or sweats at this time. The remainder of the review of systems was obtained and was negative. PHYSICAL EXAMINATION: The patient is a well-developed, well-nourished woman awake, alert and fully oriented, in no distress despite tracheostomy with mechanical ventilation. Temperature 98.2, pulse 100, respirations 26, blood pressure 130/61, oxygen saturation 95% on 35% FiO2. Skin: Full turgor, anicteric and without ecchymoses. HEENT Examination: Normocephalic, atraumatic. Pupils round and reactive, extraocular muscles intact. Sclerae anicteric. Oropharynx without lesions. Neck: Supple without appreciable thyromegaly. Tracheostomy in place with no active bleeding. Lymphatics: No pathologic lymphadenopathy noted in the cervical, supraclavicular, axillary or inguinal regions. Subcutaneous nodules are present. Lungs: Bilateral breath sounds with occasional rhonchi. Cardiac Exam: Regular rhythm, point of maximal impulse nondisplaced. S1, S2, without appreciable gallop, rub or murmur noted. Breast Examination: Deferred. Abdomen: Active bowel sounds, soft, nontender without guarding or rebound elicited. No appreciable organomegaly. Pelvic Examination: Deferred. Rectal Examination: Deferred. Extremities: Without clubbing or cyanosis but there is trace edema of all extremities. Neurologic Exam: Mental status intact. Cranial nerves intact. Motor and sensory grossly intact. LABORATORY DATA: Laboratory studies dated 06/07/2019 include white blood count 15,800 per microliter, hemoglobin 10.4 g/dL, hematocrit 32.1%, platelet count 298,000. BUN 28, creatinine 0.51 mg/dL, glucose 140 mg/dL, calcium 8.4 mg/dL. Albumin level on 06/04/2019 depressed at 1.7 g/dL. IMPRESSION: Adenocarcinoma, widely metastatic. The patient has adenocarcinoma metastatic to the subcutaneous soft tissues, the lung, erosion into the rib cage and chest wall, as well as involving the ovaries. The tumor is, as noted, an adenocarcinoma, estrogen receptor positive, but with atypical features for breast cancer. As noted previously the distribution of her disease is not typical for the metastatic pattern of hormone receptor positive breast cancer. Aggressive metastatic disease with erosion into soft tissues and ribs is typically seen in hormone receptor negative breast cancer, rather than hormone receptor positive breast cancer. The pattern is also atypical for a primary ovarian cancer, and the distribution of disease most closely mimics that of uterine adenocarcinoma, yet another tumor that can be estrogen receptor positive. However, imaging of the pelvis shows no obvious uterine primary. The patient has been started on letrozole, and there is some possibility of a favorable response with regression of disease, particularly if this is breast cancer. Ovarian cancer will respond to letrozole less often, at a rate estimated at 35% in one series, and similarly uterine cancer also may respond to hormone modulatory therapy. The likelihood of a favorable response can be increased by the addition of a cycle independent kinase inhibitor such as palbociclib, however such a drug would add and additional toxicities. It would be helpful to obtain a more specific diagnosis with respect to tissue of origin. Once a specific diagnosis can be made, then, if the patient's pulmonary status improves, consideration could potentially be given to the administration of cytotoxic chemotherapy. However, while the patient remains ventilator dependent the administration of cytotoxic chemotherapy with the attendant toxicities would be difficult to justify, and could potentially hasten the patient's demise. This is particularly true in view of the modest contribution that the malignancy appears to be contributing to the patient's respiratory compromise. These issues were discussed at length with the patient and her son at the time of inpatient rounds today. It was noted to the patient and her son that although her cancer may be treatable, it is vanishingly unlikely that there would be any possibility of "cure." It was noted that it is entirely appropriate for the patient's cardiopulmonary resuscitation status to be "DO NOT RESUSCITATE" as her prognosis for recovery in the event of cardiopulmonary arrest is dismal. The patient and her son appeared to understand the rationale for a DO NOT RESUSCITATE status. RECOMMENDATIONS: It is recommended that letrozole be continued at this time. A baseline carcinoembryonic antigen level would be helpful, which would be one potential way monitoring response to therapy. The pathology department has been contacted and a request has been made for additional diagnostic studies to be attempted on the existing tumor specimen. This may include sending material out for a second opinion, the performance of additional immunohistochemical staining locally, or submitting tissue for a molecular diagnostic profile. In the interim, medical oncology will continue to follow the patient. Additional management recommendations will be forthcoming based on the patient's clinical status as it evolves.
--- NOTE | 2019-06-08 17:58 | IPN ---
DATE: 06/08/2019 PULMONARY CRITICAL CARE SERVICE: The patient was seen in the intensive care unit intubated and mechanically ventilated. She remains critically ill. This is hospital day number 19. She was changed to pressure support yesterday and has tolerated spontaneous mode breathing through over the last 24 hours. Her tracheostomy was changed and her sutures removed. Her Xanax was also changed to as-needed dosing. At the bedside, she is ill appearing and cachectic. Her temperature is 99, pulse rate 100, respirations 30, blood pressure 130/61. Intake and output for the past 24 hours is 1990 and 1235 out. She is 755 mL positive. Oral and nasal mucosa are dry. Her dentures are in place. Tracheostomy tube is dressed. Neck is supple. Heart sounds are regular with occasional ectopy. Breath sounds are diminished with scattered rales and rhonchi. Abdomen is soft with subcutaneous nodules palpable. Extremities are cool. Muscle wasting is noted. DIAGNOSTIC STUDIES: I have reviewed her laboratory studies, electrolytes, CBC and imaging studies. The case was discussed yesterday afternoon with medical oncology. IMPRESSION: 1. Acute on chronic respiratory failure. We will reduce the pressure support to 10/5 and continue monitoring saturation and end-tidal CO2. 2. Anxiety. We will change her albuterol to Xopenex and add a long-acting beta agonist and inhaled corticosteroids. 3. Diffuse malignancy. The patient has adenocarcinoma of unclear primary (likely breast or ovarian). The case was discussed with medical oncology and they have been kind enough to return and speak with the patient's family today regarding treatment and prognosis. She is receiving oral treatment at this point for antiestrogen therapy. 4. Deep vein thrombosis (DVT) and ulcer prophylaxis are in place. The patient's condition remains poor. Prognosis remains poor.
--- NOTE | 2019-06-08 19:15 | IPN ---
DATE: 06/08/2019 The patient is currently on pressure support. She continues to have secretions and often suctioned. She is able to void. She is awake, alert, oriented to person, place, and appears to be appropriate. She did well with trach trials. No fever or chills overnight. Temperature 98, pulse 95, respiratory rate 34, blood pressure 163/80, 90% on trach, FiO2 of 25% vented. Nasogastric tube in the right naris. LUNGS: Diminished with bilateral rhonchi. Air entry is equal. HEART: S1, S2, sinus rhythm. ABDOMEN: Soft, nontender, nondistended. Positive bowel sounds. EXTREMITIES: No cyanosis or clubbing. LABORATORY DATA: White count 15, hemoglobin 10, hematocrit 32, platelet count 298. Sodium 136, potassium 3.9, chloride 131, BUN 28, creatinine 0.5, glucose 114. Sputum: Yeast-like organism. ASSESSMENT AND PLAN: A 73-year-old female, active smoker prior to admission with chronic obstructive pulmonary disease (COPD), admitted on May 20 due to worsening shortness of breath, treated as outpatient for COPD exacerbation and given antibiotics by urgent care. Patient was intubated and treated for COPD exacerbation with acute on chronic hypoxic and hypercapnic respiratory failure. She was found to have bilateral breast masses and left upper lobe mass, which was biopsied. It showed metastatic adenocarcinoma. CURRENT ISSUES: 1. Acute on chronic hypoxic hypercapnic respiratory failure, status post tracheostomy during this admission. Patient did well with trach trials, managed by pulmonology at this time. 2. COPD exacerbation, on steroids, supplementation oxygen, and tracheostomy. 3. Metastatic adenocarcinoma, most likely of area of endometrial, atypical breasts, currently on letrozole. Managed by Dr. Blackman, medical oncologist. 4. Diet. On tube feedings. Still nothing by mouth status with aspiration risk. 5. Deep vein thrombosis (DVT) prophylaxis with compression stockings. 6. Active tobacco abuse. Nicotine patch. Cessation counseling has been provided. 7. Anxiety, on Xanax. 8. Code status. Still a full code. The son and the patient understand that she has a terminal illness. Will further discuss in the next few days regarding end-of-life issues. MTDD
[2019-06-09 04:50] LABS: HEMATOCRIT 32.3 % (36.0-47.0); HEMOGLOBIN 9.9 g/dl (12.0-15.5); MEAN CORPUSCULAR HEMOGLOBIN 29.8 pg (27.0-33.0); MEAN CORPUSCULAR HGB CONC 30.7 g/dl (32.0-36.5); MEAN CORPUSCULAR VOLUME 97.3 fl (80.0-96.0); PLATELET COUNT, AUTOMATED 371 10^3/uL (150-450); RED BLOOD COUNT 3.32 10^6/uL (4.00-5.40); WHITE BLOOD COUNT 13.8 10^3/uL (4.0-10.0)
[2019-06-09 05:14] LABS: ALBUMIN 1.6 GM/DL (3.2-5.2); ALT/SGPT 61 U/L (12-78); BILIRUBIN,TOTAL 0.3 MG/DL (0.2-1.0); BLOOD UREA NITROGEN 19 MG/DL (7-18); CALCIUM LEVEL 8.1 MG/DL (8.8-10.2); CARBON DIOXIDE LEVEL 34 MEQ/L (21-32); CHLORIDE LEVEL 103 MEQ/L (98-107); CHOLESTEROL LEVEL 134 MG/DL (< 200); CPK CREATINE PHOSPHOKINASE 11 U/L (26-192); CREATININE FOR GFR 0.42 MG/DL (0.55-1.30); GLOMERULAR FILTRATION RATE > 60.0 (>39); GLUCOSE, FASTING 88 MG/DL (70-100); LDH LACTATE DEHYDROGENASE 156 U/L (84-246); PHOSPHORUS LEVEL 3.3 MG/DL (2.5-4.9); POTASSIUM SERUM 4.6 MEQ/L (3.5-5.1); SODIUM LEVEL 141 MEQ/L (136-145); TOTAL PROTEIN 4.7 GM/DL (6.4-8.2); TRIGLYCERIDES LEVEL 97 MG/DL (<150)
[2019-06-09] MEDS: ACETAMINOPHEN 325 MG/10.15 ML UDC GT PRN ×3 (05:24→18:12)
[2019-06-09] MEDS: SLF 3 ML SYR IV SCH ×3 (05:26→22:08)
[2019-06-09 08:00] VITALS: BP 132/60
[2019-06-09] MEDS: BUDESONIDE 0.5 MG/2 ML INHALATION SUSPENSION INH SCH ×2 (08:15→21:01)
[2019-06-09] MEDS: FORMOTEROL FUMARATE 20 MCG/2 ML INHALATION SOLUTION (PERFOROMIST) INH SCH ×2 (08:15→21:01)
[2019-06-09 08:18] VITALS: O2SAT 94
[2019-06-09] MEDS: SENOKOT S TAB PO SCH ×2 (09:00→21:00)
[2019-06-09] MEDS: LETROZOLE GT SCH (09:33)
[2019-06-09] MEDS: ENOXAPARIN 40 MG/0.4 ML SYRINGE (J1650) SC SCH (09:33)
[2019-06-09] MEDS: CHLORHEXIDINE GLUCONATE 0.12 % 15ML UDC (PERIDEX ORAL RINSE) MT SCH ×2 (09:33→21:48)
[2019-06-09] MEDS: NICOTINE 21MG/24HR 1 EA TRANSDERMAL TD SCH (09:34)
[2019-06-09] MEDS: PANTOPRAZOLE 40MG INJ (PROTONIX) (C9113) IV SCH (09:34)
[2019-06-09 12:00] VITALS: BP 120/56
[2019-06-09] MEDS: ALPRAZolam 0.25 MG TAB PO PRN (14:06)
[2019-06-09 15:43] VITALS: O2SAT 92
[2019-06-09 16:00] VITALS: BP 104/55
[2019-06-09 21:55] VITALS: BP 111/59
[2019-06-10] VITALS (9 sets, daily range): BP systolic 107–169; BP diastolic 59–98; O2SAT 93–96
[2019-06-10] MEDS: ACETAMINOPHEN 325 MG/10.15 ML UDC GT PRN ×4 (00:11→15:47)
[2019-06-10 05:19] LABS: BASO # 0.1 10^3/uL (0.0-0.2); BASO % 0.3 % (0.0-1.0); EOS # 0.5 10^3/uL (0.0-0.5); EOS % 3.1 % (0.0-3.0); HEMOGLOBIN 10.6 g/dl (12.0-15.5); LYMPH # 1.8 10^3/uL (1.5-5.0); LYMPH % 12.2 % (24.0-44.0); MEAN CORPUSCULAR HEMOGLOBIN 30.4 pg (27.0-33.0); MEAN CORPUSCULAR HGB CONC 31.2 g/dl (32.0-36.5); MEAN CORPUSCULAR VOLUME 97.4 fl (80.0-96.0); MONO # 0.9 10^3/uL (0.0-0.8); MONO % 6.2 % (0.0-5.0); NEUTROPHILS % 73.4 % (36.0-66.0); PLATELET COUNT, AUTOMATED 454 10^3/uL (150-450); RED BLOOD COUNT 3.49 10^6/uL (4.00-5.40); WHITE BLOOD COUNT 14.9 10^3/uL (4.0-10.0)
[2019-06-10 05:31] LABS: BLOOD UREA NITROGEN 21 MG/DL (7-18); CALCIUM LEVEL 8.6 MG/DL (8.8-10.2); CARBON DIOXIDE LEVEL 35 MEQ/L (21-32); CHLORIDE LEVEL 103 MEQ/L (98-107); CREATININE FOR GFR 0.54 MG/DL (0.55-1.30); GLOMERULAR FILTRATION RATE > 60.0 (>39); GLUCOSE, FASTING 112 MG/DL (70-100); POTASSIUM SERUM 4.1 MEQ/L (3.5-5.1); SODIUM LEVEL 140 MEQ/L (136-145)
[2019-06-10] MEDS: SLF 3 ML SYR IV SCH ×3 (06:04→20:56)
[2019-06-10] MEDS: BUDESONIDE 0.5 MG/2 ML INHALATION SUSPENSION INH SCH ×2 (07:37→19:46)
[2019-06-10] MEDS: FORMOTEROL FUMARATE 20 MCG/2 ML INHALATION SOLUTION (PERFOROMIST) INH SCH ×2 (07:37→19:46)
--- NOTE | 2019-06-10 07:40 | REP ---
Portable chest, 07:01 a.m., single AP view with the patient semi upright: Comparison is 06/07/2019. The bilateral pleural effusions are unchanged. Cardiac size is normal and unchanged. Lung woods are otherwise clear and unchanged. The tracheostomy and nasogastric tube remain in satisfactory positions, unchanged. Impression: There is no significant interval change. Electronically Signed by Sherman Guardado MD 06/10/2019 07:32 A
[2019-06-10] MEDS: ALPRAZolam 0.25 MG TAB PO PRN (07:57)
[2019-06-10] MEDS ORDERED: FUROSEMIDE 40 MG/4 ML VIAL (J1940) IV ONE (08:30)
[2019-06-10] MEDS: NICOTINE 21MG/24HR 1 EA TRANSDERMAL TD SCH (08:44)
[2019-06-10] MEDS: PANTOPRAZOLE 40MG INJ (PROTONIX) (C9113) IV SCH (08:44)
[2019-06-10] MEDS: CHLORHEXIDINE GLUCONATE 0.12 % 15ML UDC (PERIDEX ORAL RINSE) MT SCH ×2 (08:45→20:56)
[2019-06-10] MEDS: LETROZOLE GT SCH (08:45)
[2019-06-10] MEDS: SENOKOT S TAB PO SCH ×2 (08:45→20:56)
[2019-06-10 09:38] LABS: C REACTIVE PROTEIN QUANTITATIV 9.17 MG/DL (0.00-0.30); CK-MB VALUE MASS < 1.0 NG/ML (<3.6); CPK CREATINE PHOSPHOKINASE 17 U/L (26-192); MAGNESIUM LEVEL 2.5 MG/DL (1.8-2.4); MB/CK RELATIVE INDEX 5.88 (< OR =4); PHOSPHORUS LEVEL 3.2 MG/DL (2.5-4.9); TROPONIN I < 0.02 NG/ML (< 0.10)
--- NOTE | 2019-06-10 10:24 | IPNPDOC ---
Text Note Date of Service The patient was seen on 06/10/19. NOTE Subjective: Patient is a 73-year-old male on day 22 of her hospital stay currently in ICU 10 days status post tracheostomy placement, 3 days status post tracheostomy tube change. On ventilator support pressure support of 10 over 5 with FiO2 of 35% overnight and tolerated well. Patient has had a few episodes of diarrhea over the weekend status post been placed on bowel regimen. Patient otherwise notes mild headache this morning. Discussed the need for G-tube with patient as we to do not believe she will be able to maintain her caloric needs by mouth. Patient understands and is in agreement with plan. Objective: Physical exam Vital signs: MAXIMUM TEMPERATURE 98.0 overnight, blood pressure 130s to 160s systolic, pulse 88-94, respiratory rate 22-44 (44 was with anxiety, resolved with alprazolam dose) pulse ox 87-96. Gen.: Patient is an elderly female who appears older than stated age, in no significant distress. HEENT: Mucous membranes moist, small healing wound to the left lower lip.. Nasogastric tube in place. Neck: Tracheostomy tube in place, (#6 nonfenestrated cuffed). No cervical lymphadenopathy. Mild clear drainage around tracheostomy site. Cardiovascular: Regular rhythm, mild tachycardia, normal S1 and normal S2. Respiratory: Lungs CTA on the right, mildly diminished breath sounds on left, no wheezes or rhonchi. No crackles heard in bilateral bases. Extremities: 2+ distal pulses in all 4 extremities, trace lower extremity pitting edema. Normal capillary refill. Neurological: Patient is awake alert and communicating through writing with pen and paper, able to move all 4 extremities. Laboratory studies reviewed. Chest x-ray reviewed and interpreted by us, no significant change from her x-ray on June 07. Agree with radiology interpretation. Assessment: This is a 73-year-old female who presented to the hospital for acute on chronic hypercapnic respiratory failure requiring intubation and ventilation. Patient has been transitioned to tracheostomy, tolerating ventilator well with pressure support of 10 over 5 and FiO2 of 35%. She has significant underlying obstructive lung disease, widely spread metastatic adenocarcinoma of uncertain origin, thought to be either breast uterine or ovarian as it is estrogen receptor positive. It is unclear how much of her respiratory failure secondary to her obstructive lung disease and how much is secondary to her metastatic lung disease. 1. Acute on chronic hypercapnic respiratory failure requiring ventilator 2. Metastatic adenocarcinoma, estrogen receptor positive 3. Anxiety Plan: 1. Patient to trial breathing via trach collar as tolerated during the day, with return to ventilator (pressure support 10/5. FiO2 35%) at night, or as needed during the day. Patient to continue on Xopenex every 4 hours when necessary, Pulmicort twice a day, Perforomist twice a day, and Xanax 3 times a day as needed. 2. Patient to continue on oral treatment for antiestrogen therapy. Prognosis was discussed with Dr. Blackman, on Monday, and Dr. Blackman discussed patient's case with her and her son. Patient is still full code at this time. 3. We suspect the patient will be unable to sustain her caloric needs via oral intake, thus surgery we consult for possible G-tube placement. Speech therapy consult for reevaluation of PO intake. We'll continue tube feeds by NG tube at this time. 4. We consulted social media marketing analyst regarding possible placement in a ventilator rehabilitation program as we do not believe patient will be able to wean off the ventilator completely at any time soon. 5. Continue DVT prophylaxis with enoxaparin, and GI ulcer prophylaxis with pantoprazole. Patient's prognosis remains poor, and patient's condition remains poor. ADDENDUM: I, Dr. Froilan Valdez, have conducted an independent examination and history of the patient and agree with the documentation. I discussed the assessment and plan with the medical student and agree with the above documentation. VS,Fishbone, I+O VS, Fishbone, I+O Laboratory Tests 06/10/19 04:43 Vital Signs Date Time Temp Pulse Resp B/P (MAP) Pulse Ox O2 Delivery O2 Flow Rate FiO2 06/10/19 08:10 35 06/10/19 08:04 97.9 94 44 156/98 (117) 87 Ventilator 06/05/19 04:10 8.0 I&O- Last 24 Hours up to 6 AM 06/10/19 06:00 Intake Total 1340 ml Output Total 870 ml Balance 470 ml GME ATTESTATION GME ATTESTATION My faculty preceptor for this patient encounter was physically present during the encounter and was fully available. All aspects of the patient interview, examination, medical decision making process, and medical care plan development were reviewed and approved by the faculty preceptor. The faculty preceptor is aware and concurs with the plan as stated in the body of this note and will attest to such by his/her cosignature. ROCIO WEST S-III Jun 10, 2019 10:24 Arjun VALDEZ MD Jun 16, 2019 13:40
[2019-06-10 12:03] LABS: ERYTHROCYTE SEDIMENTATION RATE 83 mm/hr (0-30)
--- NOTE | 2019-06-10 14:18 | IPN ---
DATE: 06/09/2019 Discussion with the family yesterday regarding code status. The patient is afraid and would like to think about it some more. She continues to be a FULL CODE. Overnight, the patient was left on pressure support. Changed to 10/5 and doing well this morning. She is awake, alert, oriented, answering questions by writing on a clipboard. She continues to have copious amounts of secretions via the tracheostomy. Afebrile overnight. No chills. The patient has been noted to have some vaginal bleeding and soaked one pad yesterday. She has been on letrozole. Hemoglobin and hematocrit still remain stable at 9.9 and 32. Vitals: Temperature 98.6, pulse 99, respiratory rate 19, blood pressure 125/60, 95% via trach and pressure support 10/5, FiO2 of 35% Generally, patient is in no respiratory distress. She whispers when she drives to speak and writes her responses on a clipboard. LUNGS: Diminished with coarse rhonchi. HEART: S1, S2, sinus rhythm. ABDOMEN: Soft, nontender, nondistended. Nasogastric tube in the right nares. Tracheostomy with some secretions. EXTREMITIES: No cyanosis or clubbing. LABORATORY DATA: White count 13, hemoglobin 9.9, hematocrit 32, platelet count 371. Sodium 141, potassium 4.6, chloride 103, bicarb 34, BUN 19, creatinine 0.4, glucose 88. Chest x-ray 06/07 no significant interval change. ASSESSMENT AND PLAN: This is 73-year-old female, active smoker prior to hospital admission with end stage chronic obstructive pulmonary disease (COPD), admitted on May 20 due to worsening shortness of breath. She was intubated and treated for COPD exacerbation, placed on antibiotics, and was found to have bilateral breast masses and lung mass, which was biopsied and showed metastatic adenocarcinoma of probable endometrial ovarian and possible atypical breast. The patient had been started on letrozole and trache was put in. CURRENT ISSUES: 1. Acute on chronic hypoxic and hypercapnic respiratory failure, status post tracheostomy during this admission. Patient is doing better with trach managed by pulmonology, currently only on pressure support. She remains with a significant amount of secretions, with sputum culture growing yeastlike organisms. 2. COPD exacerbation, on oxygen, tracheostomy, steroids, and antibiotics. 3. Metastatic adenocarcinoma, possible ovarian or endometrial, currently on letrozole with vaginal bleeding noted yesterday, soaking one pad. Deferred to dr. Blackman regarding change in therapy. 4. Diet. Continued on tube feedings. Still n.p.o. due to aspiration risk. 5. Deep vein thrombosis (DVT) prophylaxis with compression stockings. 6. Active tobacco abuse. Nicotine patch. 7. Anxiety, on Xanax. 8. Code status. After discussion with the son and the patient understand, the patient has decided to think about it some more. Still a FULL CODE. MTDD
[2019-06-10] MEDS: ENOXAPARIN 40 MG/0.4 ML SYRINGE (J1650) SC SCH (16:03)
--- NOTE | 2019-06-10 18:12 | CCN ---
DATE: 06/09/2019 PULMONARY CRITICAL CARE SERVICE: The patient is seen in the intensive care unit intubated, mechanically ventilated. She remains critically ill. She rested well on the ventilator through the night and feels sufficient air exchange with low pressure support. Vital signs are temperature 97.9, pulse rate 90, respirations 25, blood pressure 132/60. Intake and output for the past 24 hours: 1760 in, 1440 out, since midnight 420 in, 375 out. At bedside she is ill appearing and cachectic. Mucosa are pink and moist. Neck is supple without meningismus. The trach site is draining some clear secretions. Heart sounds are regular without appreciable murmur. Breath sounds are diminished with large airway rhonchi. Abdomen is soft with intact bowel sounds. Extremities show pulses times four. She is weak. DIAGNOSTIC STUDIES: Sodium is 141, potassium 4.6, chloride 103, CO2 34, BUN 19, creatinine 0.42, glucose 88, white cell count is down to 13.8, hemoglobin 99, hematocrit 32.3, platelet count 371,000. On medication review, she is receiving budesonide/formoterol twice daily and Xopenex on an as-needed basis, Lovenox and Protonix. She does receive letrozole and Xanax orally 0.25 three times a day as needed. IMPRESSION AND PLAN: 1. Acute on chronic respiratory failure. She has tolerated a reduction in pressure support mode of ventilation. Will change her over to trach collar trials with a Passy-Minerva valve today to assist with secretion clearance. 2. Anxiety. The patient is improved with reduction in beta agonist. Will continue to offer Xanax on an as-needed basis. 3. Diffuse malignancy. Oncology is assisting with family discussions regarding prognosis. She is receiving letrozole. 4. DVT and ulcer prophylaxis are in place. The patient's condition remains poor. Prognosis is likewise poor.
[2019-06-10] MEDS: BACITRACIN OINT 30GM TOP SCH (20:57)
[2019-06-11] VITALS (9 sets, daily range): BP systolic 102–210; BP diastolic 53–91; O2SAT 96
[2019-06-11 04:54] LABS: HEMATOCRIT 36.6 % (36.0-47.0); HEMOGLOBIN 11.1 g/dl (12.0-15.5); MEAN CORPUSCULAR HEMOGLOBIN 30.4 pg (27.0-33.0); MEAN CORPUSCULAR HGB CONC 30.3 g/dl (32.0-36.5); MEAN CORPUSCULAR VOLUME 100.3 fl (80.0-96.0); PLATELET COUNT, AUTOMATED 361 10^3/uL (150-450); RED BLOOD COUNT 3.65 10^6/uL (4.00-5.40); WHITE BLOOD COUNT 15.2 10^3/uL (4.0-10.0)
[2019-06-11] MEDS: SLF 3 ML SYR IV SCH ×3 (06:06→22:34)
[2019-06-11] MEDS: NICOTINE 21MG/24HR 1 EA TRANSDERMAL TD SCH (08:20)
[2019-06-11] MEDS: LETROZOLE GT SCH (08:20)
[2019-06-11] MEDS: CHLORHEXIDINE GLUCONATE 0.12 % 15ML UDC (PERIDEX ORAL RINSE) MT SCH ×2 (08:20→20:12)
[2019-06-11] MEDS: BACITRACIN OINT 30GM TOP SCH ×2 (08:21→20:12)
[2019-06-11] MEDS: ENOXAPARIN 40 MG/0.4 ML SYRINGE (J1650) SC SCH (08:21)
[2019-06-11] MEDS: PANTOPRAZOLE 40MG INJ (PROTONIX) (C9113) IV SCH (08:21)
[2019-06-11] MEDS: SENOKOT S TAB PO SCH ×2 (08:21→20:38)
[2019-06-11] MEDS: BUDESONIDE 0.5 MG/2 ML INHALATION SUSPENSION INH SCH ×2 (08:32→19:57)
[2019-06-11] MEDS: FORMOTEROL FUMARATE 20 MCG/2 ML INHALATION SOLUTION (PERFOROMIST) INH SCH ×2 (08:32→19:57)
--- NOTE | 2019-06-11 09:07 | IPN ---
DATE: 06/10/2019 This morning, the patient has had increasing worsening distress. She has been net negative balance. No significant change on x-ray, but has had a slight fullness in pulmonary vasculature. The patient's respiratory rate is 83. She continues to have significant secretions through the tracheostomy. Afebrile. No chills overnight. THe patient was having some vaginal bleeding since she was started on Letrozole. Lovenox has been discontinued due to acute blood loss. Hemoglobin and hematocrit remain stable. PHYSICAL EXAMINATION: VITAL SIGNS: Temperature 97.9, pulse 94, respiratory rate 44, blood pressure 156/98, vent, 35% FiO2. GENERAL: The patient is in slight distress. Awake, alert, following commands. LUNGS: Diminished at the bases. HEART: S1, S2. Sinus rhythm. ABDOMEN: Soft, nontender, nondistended. Positive bowel sounds. EXTREMITIES: No pitting edema. LABORATORY DATA: White count 14.9, hemoglobin 10, hematocrit 34, platelet count 464. Sodium 140, potassium 4.1, chloride 103, bicarbonate 30, BUN 21, creatinine 0.5, glucose 112. Laboratory data and microbiology have been reviewed. HOSPITAL MEDICATIONS: - Xopenex - Pulmicort - Perforomist - milk of magnesium - Fleet enema - Senokot - Dulcolax - Letrozole - morphine - acetaminophen - nicotine patch - Lovenox - Protonix ASSESSMENT AND PLAN: This is a 73-year-old female, active smoker prior to admission, who presented with acute shortness of breath and admitted on 05/20/2019 for acute hypoxic hypercapnic respiratory failure and treated for chronic obstructive pulmonary disease (COPD) exacerbation, noted to have bilateral breast masses and left upper lobe mass, status post biopsy showing metastatic adenocarcinoma, atypical breast, probably ovarian or endometrial. Started on Letrozole. The patient had difficulty with secretions and tired out on tracheostomy and was placed back on the ventilator. ACTIVE ISSUES: 1. Acute on chronic hypoxic and hypercapnic respiratory failure, status post tracheostomy during this admission. The patient is on pressure support but has had increasing respiratory distress overnight with increased secretions. Pulmonology currently managing ventilator. 2. Chronic obstructive pulmonary disease (COPD) exacerbation. Completed steroids. Currently on oxygen and tracheostomy. 3. Metastatic adenocarcinoma. Differential includes endometrial, atypical breast or ovarian. Currently on Letrozole with vaginal bleeding managed by Dr. Blackman, medical oncologist. 4. Acute blood loss secondary to vaginal bleeding since Letrozole has been started. The patient soaked a pad two days ago. Lovenox has been discontinued due to acute blood loss. 5. Diet. Tube feedings. Nothing by mouth due to aspiration risk secondary to acute hypoxic respiratory failure requiring ventilator support via her tracheostomy. 6. Active tobacco abuse. Nicotine patch. Cessation counseling. CODE STATUS: The patient understands that she has a terminal illness but is not ready for DO NOT RESUSCITATE and end of life at this time. 7. Anxiety. On chronic Xanax. MTDD
--- NOTE | 2019-06-11 11:03 | IPNPDOC ---
Text Note Date of Service The patient was seen on 06/11/19. NOTE Subjective: Patient is a 73-year-old female on day 23 of her hospital stay, currently in the ICU on ventilator support with her tracheostomy. Patient is receiving nutrition through nasogastric tube, we discussed the need to replace this nasogastric tube with a PEG tube. Patient understands and agrees to procedure. Surgery was consulted, and Dr. Liao agreed to see the patient. Patient did not tolerate trach collar well yesterday, and was placed back on pressure support 10 over 5, 30% FiO2 overnight. This morning we attempted weaning the patient to trach collar again; however, patient did not tolerate trach collar for very long, and after 25 minutes was using abdominal accessory muscles, was tachypneic and feeling very hot. Patient was placed back on ventilator support at previous settings and we will continue to wean her as tolerated. PFS consultation placed yesterday, currently working on placement in a ventilator rehabilitation program that will allow her to continue her letrozole. PFS should speak directly with patient as she is able to make her own decisions at this time. Objective: Vital signs: Maximum temperature of 98.7 overnight, blood pressure 110-120 systolic, pulse 84-92, respiratory rate 18-26, SPO2 94-98%, 24-hour input 2080 mL, output 1890 mL, with a positive balance of 190 mL yesterday. General: Patient lying in bed on ventilator support in no acute distress, communicating through pen and paper, appears older than stated age. HEENT: Mucous membranes moist, nasogastric tube in place, pupils equal round react to light and accommodation, extraocular movements intact. Neck: Trachea midline with tracheostomy tube in place. No JVD, no cervical lymphadenopathy. Cardiovascular: Heart regular rate and rhythm, no murmurs, rubs, or gallops appreciated. Respiratory: Lungs clear to auscultation throughout bilateral lung woods, no wheezes, rhonchi, or crackles appreciated. Symmetric chest rise and fall with prolonged respiratory phase. Abdomen: Abdomen is soft, nontender, with palpable subcutaneous nodules. Extremities: Bilateral lower extremities trace pitting edema, 2+ distal peripheral pulses in all 4 extremities. Neurological: Patient is awake, alert, and oriented to person place and time. Patient indicates through writing with pen and paper, able to move all 4 extremities. Laboratory studies: Patient's H&H remained stable, platelet count within normal limits, leukocytosis remains. Assessment: This is a 73-year-old female presented to the hospital for acute on chronic hypercapnic respiratory failure requiring intubation and ventilation. Patient unable to be weaned off ventilator, requiring tracheostomy placement. Patient is currently on ventilator with pressure support mode, 10 over 5, FiO2 30%, with transition to trach collar as tolerated throughout the day. Patient has not tolerated trach collar well thus far. Patient's course is complicated by estrogen receptor positive metastatic adenocarcinoma, currently on letrozole. Patient pending placement in ventilator rehabilitation program. 1. Acute on chronic hypercapnic respiratory failure requiring ventilator 2. Metastatic adenocarcinoma, estrogen receptor positive 3. Anxiety Recommendations: 1. Patient continued weaning trials with trach collar as tolerated during the day return to ventilator daily at bedtime, and as needed during the day. Recommend continuing Xopenex and Pulmicort, Perforomist. I do not believe we'll be able to wean patient off ventilator during her hospital stay, and will thus require placement in a facility that specializes in slow weaning protocols. 2. Agree with oncology recommendation to continue letrozole therapy. 3. Consultation with general surgery on-call, Dr. Liao, regarding placement of PEG tube as patient is still having difficulty with oral intake according to speech therapy. Dr. Liao agrees to see the patient, and requests the enoxaparin for DVT prophylaxis be held on the day of her surgery. 4. Recommend continuing surgical ventilator rehabilitation program placement. 5. Recommend continue with DVT prophylaxis with enoxaparin for now, and GI ulcer prophylaxis with pantoprazole. Prognosis remains poor, and patient's condition remained poor. Discussed at length this morning the patient the need for PEG tube placement as she is unable to tolerate oral intake at this time, and discussed the need for placement in a long-term ventilator weaning program. Patient understands and is in agreement with plan. Patient is alert and oriented and able to make her own medical decisions at this time. ADDENDUM: I, Dr. Froilan Valdez, have conducted an independent examination and history of the patient and agree with the documentation. I discussed the assessment and plan with the medical student and agree with the above documentation. VS,Fishbone, I+O VS, Fishbone, I+O Laboratory Tests 06/11/19 04:44 Vital Signs Date Time Temp Pulse Resp B/P (MAP) Pulse Ox O2 Delivery O2 Flow Rate FiO2 06/11/19 10:00 30 06/11/19 08:33 96 Trach Collar 10.0 06/11/19 07:51 98.7 84 26 125/66 (85) I&O- Last 24 Hours up to 6 AM 06/11/19 05:59 Intake Total 2080 ml Output Total 1785 ml Balance 295 ml GME ATTESTATION GME ATTESTATION My faculty preceptor for this patient encounter was physically present during the encounter and was fully available. All aspects of the patient interview, examination, medical decision making process, and medical care plan development were reviewed and approved by the faculty preceptor. The faculty preceptor is aware and concurs with the plan as stated in the body of this note and will attest to such by his/her cosignature. ROCIO WEST OMS-III Jun 11, 2019 11:03 Arjun VALDEZ MD Jun 16, 2019 13:42
[2019-06-11] MEDS: LEVALBUTEROL 1.25 MG/0.5 ML CONCENTRATE NEB INH PRN (11:29)
[2019-06-11] MEDS: ACETAMINOPHEN 325 MG/10.15 ML UDC GT PRN (11:37)
[2019-06-11] MEDS: ALPRAZolam 0.25 MG TAB PO PRN ×2 (11:37→14:23)
--- NOTE | 2019-06-11 12:17 | IPNPDOC ---
Text Note Date of Service The patient was seen on 06/11/19. NOTE Subjective: Patient is a 73-year-old female with a past medical history of COPD on BiPAP who presented to the emergency room with complaints of shortness of breath and productive cough. Patient was intubated upon arrival to the ER because of severe respiratory distress. Patient was found to have metastatic disease with involvement of her abdomen, lung and ribs. Patient had failed extubation and subsequently received a tracheostomy on 05/31/[address] Shaw. Patient was seen and examined at the bedside. Currently, patient reports that she does not express any chest pain, shortness of breath or palpitations. She denies any nausea, vomiting, abdominal pain, diarrhea, or urinary discomfort. Discussed with the patient that she will ultimately require a PEG tube placement and surgery has been consulted. Objective: Vitals (See below) General: Lying in bed, comfortable, AAOx3 HEENT: NC, AT, + Trach, +NG tube CVS: RRR, +S1S2 Lungs: Fair air entry b/l, -w/r/r Abdomen: Soft, ND, NT Extremities: - Edema, - Calf tenderness Assessment and plan: Acute on chronic hypoxic and hypercapnic respiratory failure - s/p Tracheostomy (05/31) - Has attempted weaning trials during the day; however still requires pressure support at night - Pulmonology on consultation s/p COPD exacerbation - s/p Corticosteroids - c/w inhaled therapy as ordered Metastatic adenocarcinoma - Etiology has not been delineated; possibly 2/2 Endometrial, atypical breast or ovarian - Pathology 05/28: Metastatic adenocarcinoma, likely breast primary - Pathology has been sent out for additional testing / markers - c/w Letrozole with vaginal bleeding managed by Dr. Blackman, medical oncologist Suspected acute blood loss 2/2 vaginal bleeding - possibly 2/2 Letrozole - Reported to have soaked an entire pad; no further bleeding episodes noted - Hg has remained stable; she remains hemodynamically stable - Will resume Lovenox at this time Diet - currently on NG tube feedings - Surgery, Dr. Liao consulted for PEG tube placement Active tobacco abuse - Advised smoking cessation - c/w Nicotine patch Anxiety - c/w Alprazolam GI prophylaxis - c/w Protonix DVT prophylaxis - c/w Lovenox Code status: - Full code; patient does have a poor prognosis, but despite this would like to continue with full resuscitation Disposition: - Discussed with PFS; looking into facility that can support trach / peg / possible chemotherapy; likely will be out of area VS,Dot, I+O VS, Dot, I+O Laboratory Tests 06/11/19 04:44 Vital Signs Date Time Temp Pulse Resp B/P (MAP) Pulse Ox O2 Delivery O2 Flow Rate FiO2 06/11/19 10:00 30 06/11/19 09:10 106 44 93 06/11/19 08:33 Trach Collar 10.0 06/11/19 07:51 98.7 125/66 (85) I&O- Last 24 Hours up to 6 AM 06/11/19 06:00 Intake Total 2300 ml Output Total 1835 ml Balance 465 ml LEXII KELLEY MD Jun 11, 2019 12:17
[2019-06-12] VITALS (17 sets, daily range): BP systolic 89–188; BP diastolic 50–79; O2SAT 96
[2019-06-12 05:46] LABS: BLOOD UREA NITROGEN 28 MG/DL (7-18); CALCIUM LEVEL 8.4 MG/DL (8.8-10.2); CARBON DIOXIDE LEVEL 33 MEQ/L (21-32); CHLORIDE LEVEL 100 MEQ/L (98-107); CREATININE FOR GFR 0.54 MG/DL (0.55-1.30); GLOMERULAR FILTRATION RATE > 60.0 (>39); GLUCOSE, FASTING 100 MG/DL (70-100); POTASSIUM SERUM 3.9 MEQ/L (3.5-5.1); SODIUM LEVEL 138 MEQ/L (136-145)
[2019-06-12] MEDS: SLF 3 ML SYR IV SCH ×3 (06:12→21:06)
[2019-06-12 07:35] LABS: BASO % 0.2 % (0.0-1.0); EOS # 0.3 10^3/uL (0.0-0.5); EOS % 1.7 % (0.0-3.0); HEMOGLOBIN 10.2 g/dl (12.0-15.5); LYMPH # 2.1 10^3/uL (1.5-5.0); LYMPH % 12.8 % (24.0-44.0); MEAN CORPUSCULAR HEMOGLOBIN 30.5 pg (27.0-33.0); MEAN CORPUSCULAR HGB CONC 31.9 g/dl (32.0-36.5); MEAN CORPUSCULAR VOLUME 95.8 fl (80.0-96.0); MONO # 1.2 10^3/uL (0.0-0.8); MONO % 7.3 % (0.0-5.0); NEUTROPHILS # 12.4 10^3/uL (1.5-8.5); NEUTROPHILS % 74.9 % (36.0-66.0); PLATELET COUNT, AUTOMATED 507 10^3/uL (150-450); RED BLOOD COUNT 3.34 10^6/uL (4.00-5.40); WHITE BLOOD COUNT 16.6 10^3/uL (4.0-10.0)
[2019-06-12] MEDS: FORMOTEROL FUMARATE 20 MCG/2 ML INHALATION SOLUTION (PERFOROMIST) INH SCH ×2 (07:35→20:46)
[2019-06-12] MEDS: BUDESONIDE 0.5 MG/2 ML INHALATION SUSPENSION INH SCH ×2 (07:35→20:46)
[2019-06-12] MEDS: IPRATROPIUM 0.02% SOLN 0.5MG/2.5 ML NEB INH SCH ×3 (08:00→20:46)
[2019-06-12] MEDS: NICOTINE 21MG/24HR 1 EA TRANSDERMAL TD SCH (08:07)
[2019-06-12] MEDS: ACETAMINOPHEN 325 MG/10.15 ML UDC GT PRN ×2 (08:08→23:29)
[2019-06-12] MEDS: LETROZOLE GT SCH (08:08)
[2019-06-12] MEDS: CHLORHEXIDINE GLUCONATE 0.12 % 15ML UDC (PERIDEX ORAL RINSE) MT SCH ×2 (08:08→20:06)
[2019-06-12] MEDS: PANTOPRAZOLE 40MG INJ (PROTONIX) (C9113) IV SCH (08:08)
[2019-06-12] MEDS: BACITRACIN OINT 30GM TOP SCH ×2 (08:09→20:06)
[2019-06-12] MEDS: ALPRAZolam 0.25 MG TAB PO PRN (08:17)
[2019-06-12] MEDS: SENOKOT S TAB PO SCH ×2 (08:17→21:00)
--- NOTE | 2019-06-12 09:48 | IPNPDOC ---
Text Note Date of Service The patient was seen on 06/12/19. NOTE Subjective: Patient is 73-year-old female on day 24 over hospital stay, currently in the ICU on ventilator support through tracheostomy. Patient breathing via trach collar as tolerated throughout the day, able to tolerate trach collar 3 times yesterday with a maximum time of 40 minutes off ventilator. Whenever patient is on a trach collar for to long, she becomes tachypneic, diaphoretic, and feels uncomfortable. Patient also notes that she feels she gets a headache and has r ight ear pressure while on the trach collar. Patient admits to a lot of mucus, but no difficulty coughing up her sputum. Nursing notes that she did not have any problems overnight, but is complaining of some buttocks pain secondary to pressure wound. Nursing also notes patient had 4 loose bowel movements last night. PFS put in a call to [facility], awaiting to hear back. Spoke with patient this morning regarding her wishes in the ventilator rehabilitation program will not be local, and she may even be out of state. Patient notes that she has additional insurance, and that she is willing to be placed in a ventilator rehabilitation program so long as they will be able to continue with her letrozole therapy. Objective: Vital signs: Maximum temperature 99.4, blood pressure ranges from 90s to 180s systolic, pulse from the 80s to maximum of 101, respiratory rate 20-27, SPO2 94- 96%. 24-hour intake yesterday of 2410 mL, total output 595 mL, making her +1815 mL. On ventilator, pressure support 10 over 5, FiO2 30% General: Patient is pleasant elderly female who appears older than stated age, laying in bed on ventilator, in no acute distress. HEENT: Mucous membranes moist, small healing ulcer on left lower lip, right tympanic membranes visualized without erythema, copious amounts of cerumen in bilateral ear canals. Unable to visualize left tympanic membrane. Neck: Tracheostomy in place, tracheostomy site healing well. No JVD, no cervical lymphadenopathy. Cardiovascular: Heart regular rate and rhythm, normal S1 and S2. No gallops, rubs, or murmurs appreciated. Respiratory: Lungs clear to auscultation in all lung woods bilaterally, but with mild end expiratory wheezes. No rhonchi or rales appreciated. Abdomen: Soft, nontender, nondistended. Small subcutaneous nodule felt left abdominal wall. Extremities: 2+ distal pulses in all 4 extremities, teds in place to bilateral lower extremities. Bilateral lower extremities 1+ pitting edema. Neurological: Patient is awake, alert, oriented, and able to communicate through writing on a white board. Patient is able to move all 4 extremities, mouth words, can perform fine motor movements. Normal sensation in all 4 extremities. Laboratory studies: Patient's white blood cell count continues to rise, at 16,600. Hemoglobin and hematocrit remained stable. Kidney function remained stable, with creatinine of 0.54, and BUNs of 28. Procalcitonin from 2 days ago results today 0.12. Assessment: This is a 73-year-old female admitted to the hospital for acute on chronic hypercapnic respiratory failure requiring intubation and ventilation. Patient currently 12 days status post tracheostomy, tolerating trach collar minimally three-times throughout the day. 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 Patient is currently on letrozole, but has poor prognosis. Pending placement and ventilator rehabilitation program. 1. Acute on chronic respiratory failure requiring ventilation 2. COPD 3. Estrogen receptor positive metastatic adenocarcinoma 4. Anxiety Recommendations: 1. Patient to continue trache collar as tolerated during the day. Patient will likely not tolerate trach collar for long after her procedure today and thus we will restart tomorrow. patient to continue on maintenace inhalers Pulmicort and Perforomist, with the addition of ipratropium nebulizers as she had mild wheezing today. She can continue with xopenex prn. 2. Continue attempts to place patient in ventilator rehabilitation program for continued attempts at weaning that will also have capability for her to continue her letrozole therapy. 3. Agree with oncology recommendations. will continue letrozole. 4. Patient scheduled for PEG tube placement later this afternoon. Tube feedings held since 0600 this morning, and Lovenox held today. This will help facilitate placement in ventilator rehabilitation program. 5. Continue GI ulcer prophylaxis with pantoprazole, restarting DVT prophylaxis with enoxaparin after procedure. 6. Recommend discontinuing Pringle catheter after procedure, for trial of void with possible placement of female catheter if needed. If patient is still retaining, may require intermittent straight catheterization. 7. Recommend decreasing her bowel regimen given her frequent bouts of loose stools. Patient's prognosis remains poor. Patient still wishes to be full code, and is requesting all treatment at this time. Discussed plan with the patient for PEG tube procedure today, and the long-term plan for her to be placed in a ventilator rehabilitation program that will likely be out of state. Patient notes understanding and agreement with the plan at this time. Patient wishing to discuss ventilator rehabilitation program place with her son further. Patient is still able to make her own decision medical decisions, and thus we will continue to go to her with our plans. VS,Fishbone, I+O VS, Fishbone, I+O Laboratory Tests 06/12/19 04:58 Vital Signs Date Time Temp Pulse Resp B/P (MAP) Pulse Ox O2 Delivery O2 Flow Rate FiO2 06/12/19 09:00 96 Trach Collar 10.0 40 06/12/19 07:56 100 178/72 (107) 06/12/19 07:39 27 06/12/19 07:24 99.2 I&O- Last 24 Hours up to 6 AM 06/12/19 06:00 Intake Total 2120 ml Output Total 575 ml Balance 1545 ml GME ATTESTATION GME ATTESTATION My faculty preceptor for this patient encounter was physically present during the encounter and was fully available. All aspects of the patient interview, examination, medical decision making process, and medical care plan development were reviewed and approved by the faculty preceptor. The faculty preceptor is aware and concurs with the plan as stated in the body of this note and will attest to such by his/her cosignature. ATTENDING NOTE I, Nitza Kennedy, have conducted an independent physical exam and history of the patient and agree with the above detailed plan as discussed during rounds. ROCIO WEST OMS-III Jun 12, 2019 09:48 NITZA KENNEDY MD Jun 12, 2019 15:34
--- NOTE | 2019-06-12 12:58 | IPNPDOC ---
Text Note Date of Service The patient was seen on 06/12/19. NOTE Subjective: Patient is a 73-year-old female with a past medical history of COPD on BiPAP who presented to the emergency room with complaints of shortness of breath and productive cough. Patient was intubated upon arrival to the ER because of severe respiratory distress. Patient was found to have metastatic disease with involvement of her abdomen, lung and ribs. Patient had failed extubation and subsequently received a tracheostomy on 05/31/[address] Shaw. Patient was seen and examined at the bedside. She was seen sitting up at the bedside. She denied any chest pain, SOB, palpitations, N/V, abdominal pain, C/D. Objective: Vitals (See below) General: Lying in bed, comfortable, AAOx3 HEENT: NC, AT, + Trach, +NG tube in place CVS: RRR, +S1S2 Lungs: Fair air entry b/l, no appreciable wheezing / rhonchi / rales Abdomen: Soft, non-distended, non-tender Extremities: No evidence of edema, - Calf tenderness Assessment and plan: Acute on chronic hypoxic and hypercapnic respiratory failure - s/p Tracheostomy (05/31) - Has attempted weaning trials during the day; however still requires pressure support at night - Pulmonology on consultation s/p COPD exacerbation - s/p Corticosteroids - c/w inhaled therapy as ordered Metastatic adenocarcinoma - Etiology has not been delineated; possibly 2/2 Endometrial, atypical breast or ovarian - Pathology 05/28: Metastatic adenocarcinoma, likely breast primary - Pathology has been sent out for additional testing / markers - c/w Letrozole with vaginal bleeding managed by Dr. Blackman, medical oncologist Suspected acute blood loss 2/2 vaginal bleeding - possibly 2/2 Letrozole - Reported to have soaked an entire pad; no further bleeding episodes noted - Hg has remained stable; she remains hemodynamically stable - Lovenox on hold (re: will get PEG tube today) Diet - currently NG tube feedings on hold today - Surgery, Dr. Liao consulted for PEG tube placement - Possible PEG tube placement today Active tobacco abuse - Advised smoking cessation - c/w Nicotine patch Anxiety - c/w Alprazolam GI prophylaxis - c/w Protonix DVT prophylaxis - Lovenox on hold today (re: Possible PEG tube today) Code status: - Full code; patient does have a poor prognosis, but despite this would like to continue with full resuscitation Disposition: - PFS looking into facility that can support trach / peg / possible chemotherapy; likely will be out of area VS,Dot, I+O VS, Dot, I+O Laboratory Tests 06/12/19 04:58 Vital Signs Date Time Temp Pulse Resp B/P (MAP) Pulse Ox O2 Delivery O2 Flow Rate FiO2 06/12/19 12:00 98.5 87 24 108/58 (75) 94 Ventilator 30 06/12/19 09:00 10.0 I&O- Last 24 Hours up to 6 AM 06/12/19 06:00 Intake Total 2120 ml Output Total 575 ml Balance 1545 ml LEXII KELLEY MD Jun 12, 2019 12:58
[2019-06-12] MEDS ORDERED: propofoL 200 MG/20 ML VIAL As Ordered ONE ×2 (13:11→13:12)
[2019-06-12] MEDS ORDERED: LIDOCAINE 2% INJ 100 MG/5 ML SDV (FOR ANES.) As Ordered ONE (13:11)
[2019-06-12] MEDS ORDERED: fentaNYL 100 MCG/2 ML INJECTION (J3010) As Ordered ONE (13:12)
[2019-06-12] MEDS ORDERED: metroNIDAZOLE/NACL 500MG(5MG/ML)100 ML BAG (S0030) As Ordered ONE (14:08)
[2019-06-12] MEDS ORDERED: CIPROFLOXACIN/D5W 400 MG/200 ML BAG (J0744) As Ordered ONE (14:56)
[2019-06-12] MEDS ORDERED: CIPROFLOXACIN 400 MG in IV 1 EA IV ONE (15:00)
--- NOTE | 2019-06-12 20:07 | CR ---
DATE OF CONSULTATION: 06/12/2019 REASON FOR CONSULTATION: Request for percutaneous endoscopic gastrostomy tube. HISTORY: The patient is a 73-year-old woman who presented to the emergency department on May 20 in respiratory distress. She has a history of significant chronic obstructive pulmonary disease and presented with significant dyspnea. She had respiratory distress to a point that she was intubated. She had significant CO2 retention. She has remained on the ventilator since her admission. She had a tracheostomy performed by Dr. Shaw approximately 10-12 days ago. She has been receiving nutrition through a nasogastric (NG) tube. Initial attempts at any sort of respiratory weaning have not progressed, and it is anticipated that she will need continued support for some time. I am now requested to place a percutaneous endoscopic gastrostomy tube. MEDICAL HISTORY: Significant for chronic lung disease related to the smoking. She continues to smoke up until this admission. SURGICAL HISTORY: Significant for a section many years ago. PHYSICAL EXAMINATION: The patient is lying quietly in the hospital bed in the intensive care unit. She has a tracheotomy in place and is on ventilatory support with pressure support above positive end-expiratory pressure (PEEP) but is breathing spontaneously at a rate of approximately 24-26. She is alert and appropriately responsive and is able to answer questions and ask questions. Heart exam shows a regular rhythm, and she is not tachycardiac. Lung exam shows distant breath sounds. The abdomen is soft and nondistended. She has an old low transverse scar consistent with a section. Her most recent laboratory studies this morning showed a white count of 17,000 with a hemoglobin 10, hematocrit 32, and a platelet count of 507,000. Her differential count shows 75% neutrophils, 13% lymphocytes, and 7% monocytes. Her chemistry profile from today showed a sodium of 138, potassium 3.9, chloride 100, CO2 of 33, BUN of 28, creatinine 0.5, and glucose of 100. She had a CT scan on June 04, and I reviewed this. This shows a normal-appearing stomach in the left upper quadrant. She has a number of small nodules scattered in the left anterior chest wall in the area of the left hip and multiple nodules within the abdomen and pelvis. IMPRESSION: 1. Acute respiratory failure superimposed on chronic obstructive pulmonary disease. 2. Metastatic adenocarcinoma which on biopsy had initially been thought to be most likely from breast primary, although a new second opinion from [facility] suggests that the findings may be more in keeping with an ovarian primary. 3. Need for enteral nutritional support. PLAN: The patient was counseled for placement of a percutaneous endoscopic gastrostomy tube. She had an opportunity to ask questions. I described the procedure to her. She desires to proceed, and this will be performed later today. OLY
[2019-06-12] MEDS ORDERED: KETOROLAC 30 MG/ML VIAL (J1885) As Ordered ONE (20:33)
[2019-06-12] MEDS ORDERED: KETOROLAC 30 MG/ML VIAL (J1885) IV SCH (20:45)
[2019-06-13] VITALS (11 sets, daily range): BP systolic 89–120; BP diastolic 52–59
[2019-06-13] MEDS ORDERED: NS 500 ML IV ONE (03:00)
[2019-06-13] MEDS: ALPRAZolam 0.25 MG TAB PO PRN ×2 (03:52→14:16)
[2019-06-13 05:39] LABS: BLOOD UREA NITROGEN 25 MG/DL (7-18); CALCIUM LEVEL 8.7 MG/DL (8.8-10.2); CARBON DIOXIDE LEVEL 32 MEQ/L (21-32); CHLORIDE LEVEL 99 MEQ/L (98-107); CREATININE FOR GFR 0.67 MG/DL (0.55-1.30); GLOMERULAR FILTRATION RATE > 60.0 (>39); GLUCOSE, FASTING 90 MG/DL (70-100); POTASSIUM SERUM 4.3 MEQ/L (3.5-5.1); SODIUM LEVEL 138 MEQ/L (136-145)
[2019-06-13] MEDS: SLF 3 ML SYR IV SCH ×3 (06:16→21:45)
[2019-06-13] MEDS: FORMOTEROL FUMARATE 20 MCG/2 ML INHALATION SOLUTION (PERFOROMIST) INH SCH ×2 (07:39→19:20)
[2019-06-13] MEDS: BUDESONIDE 0.5 MG/2 ML INHALATION SUSPENSION INH SCH ×2 (07:39→19:20)
[2019-06-13] MEDS: IPRATROPIUM 0.02% SOLN 0.5MG/2.5 ML NEB INH SCH ×3 (07:39→19:20)
--- NOTE | 2019-06-13 09:10 | REP ---
Portable chest, 08:49 a.m., single AP view with the patient sitting: Comparison is 06/10/2019. The bilateral pleural effusions are unchanged. Cardiac size is normal, unchanged. Lung woods otherwise clear, unchanged. The tracheostomy is unchanged. The nasogastric tube has been removed. There appears to have been interval placement of a gastrostomy tube . Impression: No interval change except that the nasogastric tube has been removed and there appears to have been interval placement of a gastrostomy tube . Electronically Signed by Sherman Guardado MD 06/13/2019 09:01 A
[2019-06-13] MEDS: CHLORHEXIDINE GLUCONATE 0.12 % 15ML UDC (PERIDEX ORAL RINSE) MT SCH ×2 (09:26→21:44)
[2019-06-13] MEDS: BACITRACIN OINT 30GM TOP SCH ×2 (09:27→21:45)
[2019-06-13] MEDS: ENOXAPARIN 40 MG/0.4 ML SYRINGE (J1650) SC SCH (09:27)
[2019-06-13] MEDS: NICOTINE 21MG/24HR 1 EA TRANSDERMAL TD SCH (09:27)
[2019-06-13] MEDS: SENOKOT S TAB PO SCH ×2 (09:28→21:44)
[2019-06-13] MEDS: PANTOPRAZOLE 40MG INJ (PROTONIX) (C9113) IV SCH (09:28)
[2019-06-13] MEDS: LETROZOLE GT SCH (09:28)
[2019-06-13] MEDS ORDERED: KETOROLAC 30 MG/ML VIAL (J1885) IV PRN (09:45)
--- NOTE | 2019-06-13 10:33 | IPNPDOC ---
Text Note Date of Service The patient was seen on 06/13/19. NOTE Subjective: Patient is an 73-year-old female on day 25 of her hospital stay currently in ICU on ventilator support through tracheostomy. Yesterday, she tolerated trach collar well prior to procedure, maintaining on the trach collar, for an hour and 10 minutes total. Overnight, patient became hypotensive into the 80s/50s requiring 500 mL bolus of normal saline with improvement in blood pressure. Patient after procedure was more tachypneic and complaining of SOB overnight and so was placed on PRVC, tidal volume 370, respiratory rate 15, FiO2 30%, PEEP of 5. Patient maintained on this setting throughout the night. Patient had percutaneous endoscopic gastrostomy tube placement yesterday, and tolerated procedure well. Tube feedings have been restarted, Lovenox for DVT pro phylaxis has also been restarted. Patient complaining of only mild epigastric pain with palpation this morning, but otherwise has no complaints. She states she is breathing well, and is not in any pain. Patient is still awaiting placement in ventilator rehabilitation program. Discussed with primary team of possibility for placement in long-term acute care facility. Objective: Vital signs: Maximum temperature of 98.1, blood pressure 80s to 100s systolic over 50s diastolic, pulse 83-94, respiratory rate 19-26, SPO2 93-95%, 24-hour input yesterday 1195, output 765 mL, overall +430 mL. Gen.: Patient is a pleasant elderly woman who appears older than stated age, on ventilator support. No acute distress. HEENT: Moist mucous membranes, 1 cm healing ulceration left lower lip, pupils equal round react to light and accommodation, extraocular movements intact Neck: Tracheostomy in place with mild drainage around tracheostomy site, dressings and bacitracin ointment on tracheostomy site. No lymphadenopathy. Cardiovascular: Heart regular rate and rhythm, normal S1 and S2. No murmurs, rubs, or gallops appreciated. Respiratory: Lungs clear to auscultation bilaterally, with occasional scattered end expiratory wheezes, improved from yesterday. Abdomen: Soft, nondistended, mild tenderness in the epigastrium, otherwise nontender to palpation. Small subcutaneous nodules felt on examination. Extremities: Distal pulses 2+ in all 4 extremities. Trace bilateral lower extremity edema. Teds and sequentials in place to bilateral lower extremities. Neurological: Patient is awake alert and oriented. Patient is able to communicate through writing with pen and paper demonstrating good fine motor control. Patient is able to move all 4 extremities. Laboratory studies: White blood cell count 16,600, with differential including 74% neutrophils and 12.8% lymphocytes. Hemoglobin 10,200 hematocrit 32.0%, platelets 507,000. Sodium was 138, potassium 4.3, chloride 99, bicarbonate 32, BUN 25, creatinine 0.67. CRP was 11.3, which is elevated from her CRP on June 10 (9.17) Lactic acid was 0.8 Sputum culture final result with small amounts of yeast growth. Chest x-ray: Reviewed and interpreted by me, no infiltrates, small right pleural effusion, small left pleural effusion (started larger than the right), unchanged from previous x-ray. Reviewed and agree with radiologist's report. Assessment: This is a 73-year-old female admitted to the hospital for acute on chronic hypercapnic respiratory failure requiring intubation and ventilation. Patient is 13 days status post tracheostomy, currently on ventilator with pressure support settings and on trach collar as tolerated. Patient's course, complicated by metastatic adenocarcinoma, after further evaluation of biopsy by [facility], they believe the adenocarcinoma to be of ovarian primary given her imaging findings and the fact the biopsy was strongly positive for CK 7, and weakly positive for estrogen receptor. 1. Acute on chronic respiratory failure requiring ventilation 2. Obstructive lung disease, likely severe, likely end-stage. 3. Metastatic adenocarcinoma, likely ovarian primary 4. Anxiety Recommendations: 1. Overnight post procedure patient had to be placed on volume control mode with PRVC. This morning was able to return to pressure support. Patient will continue on ventilator with pressure support mode, and as patient tolerates will be transition to trach collar as tolerated and placed back to pressure support if needed. Yesterday prior to procedure, she did well with the trach collar and I am hopeful that she will be able to continue to progress in weaning. If she has difficulty overnight may go back to volume control if needed. 2. Continue attempts to have patient placed in ventilator rehabilitation program, or long-term acute care facility. 3. Agree with oncology recommendations, we will continue letrozole therapy. 4. Continue nutrition through PEG tube, restarted tube feedings today. 5. Continue to monitor urine output, as this was low this morning, likely secondary to decreased by mouth intake yesterday. 6. Discontinue Pringle catheter, utilize female catheter if needed to monitor I/Os. Cont to get patient OOB to chair with PT Patient's prognosis remains poor, and patient continues to be full code. Patient awaiting placement in long-term care facility that will be able to manage her ventilator, and continue providing letrozole therapy. VS,Fishbone, I+O VS, Fishbone, I+O Laboratory Tests 06/13/19 04:37 Vital Signs Date Time Temp Pulse Resp B/P (MAP) Pulse Ox O2 Delivery O2 Flow Rate FiO2 06/13/19 08:08 98.9 93 21 98/55 (69) 95 Ventilator 30 06/12/19 09:00 10.0 I&O- Last 24 Hours up to 6 AM 06/13/19 06:00 Intake Total 1450 ml Output Total 670 ml Balance 780 ml GME ATTESTATION GME ATTESTATION My faculty preceptor for this patient encounter was physically present during the encounter and was fully available. All aspects of the patient interview, examination, medical decision making process, and medical care plan development were reviewed and approved by the faculty preceptor. The faculty preceptor is aware and concurs with the plan as stated in the body of this note and will attest to such by his/her cosignature. ATTENDING NOTE I, Nitza Troy, have conducted an independent physical examination of the patient and agree with the plan as detailed above and discussed during rounds. ROCIO WEST OMS-III Jun 13, 2019 10:33 NITZA TROY MD Jun 13, 2019 12:06
--- NOTE | 2019-06-13 10:43 | RO ---
DATE OF PROCEDURE: 06/12/2019 PREOPERATIVE DIAGNOSIS: Need for enteral nutrition access. POSTOPERATIVE DIAGNOSIS: Need for enteral nutrition access. PROCEDURE PERFORMED: Esophagogastroduodenoscopy with placement of Cook Flow 20 percutaneous endoscopic gastrostomy tube. SURGEON: Dr. Liao ANESTHESIA: General. INDICATIONS FOR THE PROCEDURE: Patient is a 73-year-old woman admitted with acute respiratory failure. She has had a tracheotomy placed and remains on ventilatory support. She has been receiving feedings through a nasogastric tube and is now for placement of a percutaneous endoscopic gastrostomy tube. OPERATIVE PROCEDURE: The patient was brought to the operating room and placed on the table in a supine position. She was placed under general anesthesia via her tracheotomy tube. Her nasogastric tube was removed. The patient's abdomen was exposed. I proceeded with an upper endoscopy. The endoscope was inserted through a bite block and advanced down the esophagus. There were several small erosions identified in the upper esophagus consistent with trauma from the nasogastric (NG) tube. A minimal amount of turbid greenish fluid was identified in the stomach and this was suctioned. There were again a few small erosions in the stomach consistent with trauma from the NG tube. The scope was advanced into the first portion of duodenum, which appeared normal. The remainder of the stomach appeared normal other than the small erosions that had been noted. There were one or two very small polyps identified which appeared benign. The anterior wall of the stomach was identified by external palpation. I then handed the scope to the tech to hold. The anterior abdominal wall was prepped locally. The area was draped. Local anesthesia was achieved with 1% Xylocaine. An 11 blade was used to incise the skin. A styleted needle was inserted through the abdominal wall into the stomach. The guidewire was passed and this was grasped with a snare through the endoscope. The endoscope was then removed bringing the guidewire up through the mouth. The 20-Wolof catheter with the attached dilating tip was then inserted down the guidewire and out the anterior abdominal wall. This was advanced through the abdominal wall up to approximately the 2 cm macarena at the skin surface without significant tension. The external retention disc and the clamp were attached. The catheter was cut to length and the feeding port was attached as well. I then reinserted the endoscope down the throat and identified the internal retention disk resting gently against the gastric wall. There was no sign of any bleeding or hematoma. The stomach was aspirated and the scope was removed. The patient tolerated the procedure well. A small drain sponge was placed about the insertion site with some Betadine ointment. She was awakened in the operating room and transported to the recovery room in stable condition. The catheter placed was a Cook Flow 20 push S and had a code number [id number]. MTDD
--- NOTE | 2019-06-13 11:06 | IPNPDOC ---
Text Note Date of Service The patient was seen on 06/13/19. NOTE Subjective: Patient is a 73-year-old female with a past medical history of COPD on BiPAP who presented to the emergency room with complaints of shortness of breath and productive cough. Patient was intubated upon arrival to the ER because of severe respiratory distress. Patient was found to have metastatic disease with involvement of her abdomen, lung and ribs. Patient had failed extubation and subsequently received a tracheostomy on 05/31/[address] Shaw. Patient was seen and examined at the bedside. Patient had had a PEG tube placed yesterday by Dr. Liao. Currently she denies any nausea, vomiting, abdominal pain. Tube feedings have been resumed based surgery's recommendations; will continue with the same. Patient denies any chest pain or palpitations. Still experiences secretions via her tracheostomy. Had experienced 1.5 hours off ventilator yesterday, however, overnight she was placed back on pressure support. Objective: Vitals (See below) General: Lying in bed, comfortable, AAOx3 HEENT: NC, AT, + Trach CVS: RRR, +S1S2 Lungs: Fair air entry b/l, no appreciable wheezing / rhonchi / rales Abdomen: Soft, non-distended, non-tender, + PEG tube (site appears clean without any evidence of infection) Extremities: Trace LE edema, - Calf tenderness Assessment and plan: Acute on chronic hypoxic and hypercapnic respiratory failure - s/p Tracheostomy (05/31) - Patient continues to attempt weaning trials throughout the day; history was the longest stretch off a ventilator at 1.5 hours - Patient continues with pressure support at night - Pulmonology on consultation s/p COPD exacerbation - s/p Corticosteroids - c/w inhaled therapy as ordered Metastatic adenocarcinoma - Etiology has not been delineated; possibly 2/2 Endometrial, atypical breast or ovarian - Pathology 05/28: Metastatic adenocarcinoma, likely breast primary - Pathology has been sent out for additional testing / markers - c/w Letrozole with vaginal bleeding managed by Dr. Blackman, medical oncologist Suspected acute blood loss 2/2 vaginal bleeding - possibly 2/2 Letrozole - Reported to have soaked an entire pad; no further bleeding episodes noted - Hg has remained stable; she remains hemodynamically stable - Lovenox resumed Diet - s/p PEG tube on 06/12/[address] Liao - Tube feedings have been resumed Active tobacco abuse - Advised smoking cessation - c/w Nicotine patch Anxiety - c/w Alprazolam GI prophylaxis - c/w Protonix DVT prophylaxis - Lovenox resumed Code status: - Full code; patient does have a poor prognosis, but despite this would like to continue with full resuscitation Disposition: - PFS looking into facility that can support trach / peg / possible chemotherapy - Looking into [place], [place] facility VS,[facility], I+O VS, [facility], I+O Laboratory Tests 06/13/19 04:37 Vital Signs Date Time Temp Pulse Resp B/P (MAP) Pulse Ox O2 Delivery O2 Flow Rate FiO2 06/13/19 08:08 98.9 93 21 98/55 (69) 95 Ventilator 30 06/12/19 09:00 10.0 I&O- Last 24 Hours up to 6 AM 06/13/19 06:00 Intake Total 1450 ml Output Total 670 ml Balance 780 ml LEXII KELLEY MD Jun 13, 2019 11:06
[2019-06-13] MEDS: LEVALBUTEROL 1.25 MG/0.5 ML CONCENTRATE NEB INH PRN (13:24)
[2019-06-13] MEDS: ACETAMINOPHEN 325 MG/10.15 ML UDC GT PRN (14:17)
--- NOTE | 2019-06-13 16:20 | IPN ---
DATE: 06/13/2019 HISTORY: The patient is now postop day #1 from a percutaneous endoscopic gastrostomy tube placement. She remains on the ventilator on pressure support and positive end-expiratory pressure (PEEP) with 30% oxygen. Vital signs show that she has been afebrile. Her pulse is in the 90s generally with a good blood pressure. Intake and output show that yesterday she had 1200 in with 765 recorded out though she did have some incontinent stool. PHYSICAL EXAM: The patient is lying quietly in the hospital bed. She is alert and oriented and responsive. She denies any abdominal pain. The catheter insertion site looks good with a small dressing in place and the abdomen is benign. Laboratory studies today include a med profile showing normal electrolytes with a BUN of 25, creatinine 0.67 and a glucose of 90. Her C-reactive protein remains somewhat elevated at 11.3. IMPRESSION: The patient has tolerated the percutaneous endoscopic gastrostomy (PEG) tube placement well. She is back on tube feedings at the preoperative rate. PLAN: I will leave adjustment of the tube feeds and other nutritional matters to the primary medicine service at this point. I will not plan on following up on this patient again unless there are concerns raised. OLY
[2019-06-14] VITALS (15 sets, daily range): BP systolic 98–143; BP diastolic 52–72; O2SAT 96–100
[2019-06-14 04:32] LABS: HEMATOCRIT 28.6 % (36.0-47.0); HEMOGLOBIN 9.2 g/dl (12.0-15.5); MEAN CORPUSCULAR HEMOGLOBIN 30.3 pg (27.0-33.0); MEAN CORPUSCULAR HGB CONC 32.2 g/dl (32.0-36.5); MEAN CORPUSCULAR VOLUME 94.1 fl (80.0-96.0); PLATELET COUNT, AUTOMATED 495 10^3/uL (150-450); RED BLOOD COUNT 3.04 10^6/uL (4.00-5.40); WHITE BLOOD COUNT 16.3 10^3/uL (4.0-10.0)
[2019-06-14 04:56] LABS: BLOOD UREA NITROGEN 24 MG/DL (7-18); CARBON DIOXIDE LEVEL 31 MEQ/L (21-32); CHLORIDE LEVEL 102 MEQ/L (98-107); CREATININE FOR GFR 0.48 MG/DL (0.55-1.30); GLOMERULAR FILTRATION RATE > 60.0 (>39); GLUCOSE, FASTING 130 MG/DL (70-100); POTASSIUM SERUM 4.1 MEQ/L (3.5-5.1); SODIUM LEVEL 138 MEQ/L (136-145)
[2019-06-14] MEDS: SLF 3 ML SYR IV SCH ×3 (06:12→21:34)
[2019-06-14] MEDS: BUDESONIDE 0.5 MG/2 ML INHALATION SUSPENSION INH SCH ×2 (07:36→19:19)
[2019-06-14] MEDS: FORMOTEROL FUMARATE 20 MCG/2 ML INHALATION SOLUTION (PERFOROMIST) INH SCH ×2 (07:36→19:19)
[2019-06-14] MEDS: IPRATROPIUM 0.02% SOLN 0.5MG/2.5 ML NEB INH SCH ×3 (07:36→19:19)
[2019-06-14] MEDS: SENOKOT S TAB PO SCH ×2 (09:00→20:50)
[2019-06-14] MEDS: ACETAMINOPHEN 325 MG/10.15 ML UDC GT PRN ×3 (09:02→20:57)
[2019-06-14] MEDS: ENOXAPARIN 40 MG/0.4 ML SYRINGE (J1650) SC SCH (09:02)
[2019-06-14] MEDS: ALPRAZolam 0.25 MG TAB PO PRN ×2 (09:02→15:52)
[2019-06-14] MEDS: LETROZOLE GT SCH (09:03)
[2019-06-14] MEDS: CHLORHEXIDINE GLUCONATE 0.12 % 15ML UDC (PERIDEX ORAL RINSE) MT SCH ×2 (09:03→20:56)
[2019-06-14] MEDS: NICOTINE 21MG/24HR 1 EA TRANSDERMAL TD SCH (09:03)
[2019-06-14] MEDS: PANTOPRAZOLE 40MG INJ (PROTONIX) (C9113) IV SCH (09:03)
[2019-06-14] MEDS: BACITRACIN OINT 30GM TOP SCH ×2 (09:04→20:57)
--- NOTE | 2019-06-14 11:20 | IPNPDOC ---
Text Note Date of Service The patient was seen on 06/14/19. NOTE Subjective: Patient is a 73-year-old female currently on day 25 of her hospital stay, admitted for acute on chronic hypercapnic respiratory failure requiring ventilation. Patient remains on ventilator with pressure support of 10 over 5, FiO2 30%, for most the day and transitions to trach collar as tolerated throughout the day. Yesterday, Pringle catheter was discontinued, but patient failed trial of void. Bladder scan showed patient was retaining 550 mL of urine, and Pringle catheter was reinitiated. Overnight patient had 4 loose bowel movements, Senokot was held this morning. This morning patient feeling depressed, concerned that her family will not come visit her if she is placed in a long-term care facility outside of the local area. Patient denies any pain other than a mild headache, denies any difficulty breathing, is currently out of bed in her chair. Objective: Vital signs: Maximum temperature 99.2, blood pressure 98/55 - 113/58, pulse 83- 100, respiratory rate 20-26, SPO2 93-100%, input 2385 mL, output 140 mL, plus the retained 550 mL, for a total of +1695 mL. Gen.: Patient patient is a pleasant female, who appears older than stated age sitting in chair at bedside on ventilator through her tracheostomy. HEENT: Mucous membranes moist, no pharyngeal erythema or exudates, well healing ulcer to left lower lip. Neck: Tracheostomy in place, with gauze and velcro collar in place. No JVD, no lymphadenopathy. Cardiovascular: Heart regular rate and rhythm, normal S1 and S2. No murmurs, rubs, or gallops appreciated. Respiratory: Diminished breath sounds bilaterally with scattered end expiratory wheezes. No rhonchi or rales appreciated. Abdomen: Soft and nontender, nondistended. Small subcutaneous nodules felt. Extremities: Trace bilateral lower extremity pitting edema. 2+ distal peripheral pulses in all 4 extremities. Normal capillary refill. Neurological: Patient is awake, alert, and oriented, mouthing words, and writing with pen and paper to communicate. Laboratory studies: White blood cell count 16,300, about the same as yesterday. Hemoglobin 9.2, hematocrit 28.6%, platelets 495,000. Chemistry, sodium 138, potassium 4.1, chloride 102, bicarbonate 31, BUN 24, creatinine 0.48, glucose 130, calcium 8.0. Assessment: This is a 73-year-old woman with acute on chronic hypercapnic respiratory failure dependent on ventilator for respirations throughout the day. Patient able to tolerate trach collar intermittently throughout the day, but does not last long trach collar. Her course is complicated by her metastatic adenocarcinoma, likely ovarian in origin by imaging and pathology results. Patient is awaiting placement in long-term acute care facility. 1. Acute on chronic hypercapnic respiratory failure 2. 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 Anxiety 4. Urinary retention Recommendations: 1. Continue with trach collar as tolerated during the day with return to ventilator with pressure support settings of 10 over 5, FiO2 30% at night. Continue with Xopenex, Pulmicort, Perforomist, and ipratropium. 2. Agree with oncology plan to continue letrozole therapy. 3. Continue nutrition through PEG tube, with protein supplements as her metabolic nutrition. 4. Started patient on low-dose diuretic as she has been fluid positive for the past few days, I suspect this will help with her breathing. We'll continue to monitor. 5. Continue with alprazolam as needed for anxiety 6. Start patient on bupropion for her depressive symptoms. 7. Continue to monitor I's and O's, patient may require intermittent straight catheterization if we can discontinue the Pringle catheter. Patient's prognosis remains poor. Patient still wishes to be "full code" and have everything done. Patient awaiting placement in long-term acute care faci lity. VS,Fishbone, I+O VS, Fishbone, I+O Laboratory Tests 06/14/19 04:21 Vital Signs Date Time Temp Pulse Resp B/P (MAP) Pulse Ox O2 Delivery O2 Flow Rate FiO2 06/14/19 08:33 104 143/65 (91) Ventilator 30 06/14/19 08:00 99.3 21 94 06/12/19 09:00 10.0 I&O- Last 24 Hours up to 6 AM 06/14/19 06:00 Intake Total 1880 ml Output Total 580 ml Balance 1300 ml GME ATTESTATION GME ATTESTATION My faculty preceptor for this patient encounter was physically present during the encounter and was fully available. All aspects of the patient interview, examination, medical decision making process, and medical care plan development were reviewed and approved by the faculty preceptor. The faculty preceptor is aware and concurs with the plan as stated in the body of this note and will attest to such by his/her cosignature. ATTENDING NOTE I, Nitza Troy, conducted an independent examination of the patient and agree with the above plan as detailed and discussed during bedside rounds ROCIO WEST OMS-III Jun 14, 2019 10:41 NITZA TROY MD Jun 15, 2019 12:51
[2019-06-14] MEDS: FUROSEMIDE 20 MG TAB PO SCH (11:22)
[2019-06-14] MEDS: buPROPion 75 MG TAB PO SCH ×3 (11:23→20:56)
--- NOTE | 2019-06-14 11:28 | IPNPDOC ---
Text Note Date of Service The patient was seen on 06/14/19. NOTE Subjective: Patient is a 73-year-old female with a past medical history of COPD on BiPAP who presented to the emergency room with complaints of shortness of breath and productive cough. Patient was intubated upon arrival to the ER because of severe respiratory distress. Patient was found to have metastatic disease with involvement of her abdomen, lung and ribs. Patient had failed extubation and subsequently received a tracheostomy on 05/31/[address] Shaw. Patient was seen and examined at the bedside. Reports that she does not experience any chest pain, shortness of breath or palpitations. Denies nausea, vomiting, abdominal pain. Report some discomfort around PEG tube site, however, is mild. I have advised patient that she will be considered for placement at [place], [place]. She is currently hesitant to accept this. Objective: Vitals (See below) General: Lying in bed, comfortable, AAOx3 HEENT: NC, AT, + Trach CVS: RRR, +S1S2 Lungs: Fair air entry b/l, no appreciable wheezing / rhonchi / rales Abdomen: Soft, non-distended, non-tender, + PEG tube (site appears clean without any evidence of infection) Extremities: Trace LE edema, - Calf tenderness Assessment and plan: Acute on chronic hypoxic and hypercapnic respiratory failure - s/p Tracheostomy (05/31) - Patient continues with pressure support at night and trial periods of trach collar - Pulmonology on consultation s/p COPD exacerbation - s/p Corticosteroids - c/w inhaled therapy as ordered Metastatic adenocarcinoma - Etiology has not been delineated; possibly 2/2 Endometrial, atypical breast or ovarian - Pathology 05/28: Metastatic adenocarcinoma, likely breast primary - Pathology has been sent out for additional testing / markers - c/w Letrozole, managed by Dr. Blackman, medical oncologist Suspected acute blood loss 2/2 vaginal bleeding - possibly 2/2 Letrozole - Reported to have soaked an entire pad; no further bleeding episodes noted - Hg has remained stable - Lovenox resumed Diet - s/p PEG tube on 06/12/[address] Liao - Tube feedings have been resumed Active tobacco abuse - Advised smoking cessation - c/w Nicotine patch Anxiety - c/w Alprazolam GI prophylaxis - c/w Protonix DVT prophylaxis - Lovenox resumed Code status: - Full code; patient does have a poor prognosis, but despite this would like to continue with full resuscitation Disposition: - PFS looking into facility that can support trach / peg / possible chemotherapy - Looking into [place], [place] facility VS,Dot, I+O VS, Dot, I+O Laboratory Tests 06/14/19 04:21 Vital Signs Date Time Temp Pulse Resp B/P (MAP) Pulse Ox O2 Delivery O2 Flow Rate FiO2 06/14/19 08:33 104 143/65 (91) Ventilator 30 06/14/19 08:00 99.3 21 94 06/12/19 09:00 10.0 I&O- Last 24 Hours up to 6 AM 06/14/19 06:00 Intake Total 1880 ml Output Total 580 ml Balance 1300 ml LEXII KELLEY MD Jun 14, 2019 11:28
[2019-06-15] VITALS (10 sets, daily range): BP systolic 100–122; BP diastolic 50–60; O2SAT 93–96
[2019-06-15] MEDS: ACETAMINOPHEN 325 MG/10.15 ML UDC GT PRN ×2 (05:32→20:08)
[2019-06-15] MEDS: SLF 3 ML SYR IV SCH ×3 (05:32→21:27)
[2019-06-15] MEDS: FORMOTEROL FUMARATE 20 MCG/2 ML INHALATION SOLUTION (PERFOROMIST) INH SCH ×2 (07:44→19:51)
[2019-06-15] MEDS: IPRATROPIUM 0.02% SOLN 0.5MG/2.5 ML NEB INH SCH ×3 (07:44→19:51)
[2019-06-15] MEDS: BUDESONIDE 0.5 MG/2 ML INHALATION SUSPENSION INH SCH ×2 (07:45→19:51)
[2019-06-15] MEDS: SENOKOT S TAB PO SCH ×2 (09:00→21:00)
[2019-06-15] MEDS: CHLORHEXIDINE GLUCONATE 0.12 % 15ML UDC (PERIDEX ORAL RINSE) MT SCH ×2 (09:00→20:08)
[2019-06-15] MEDS: FUROSEMIDE 20 MG TAB PO SCH (09:00)
[2019-06-15] MEDS: TAMSULOSIN 0.4 MG CAP PO SCH (09:00)
[2019-06-15] MEDS: buPROPion 75 MG TAB PO SCH ×3 (09:01→20:08)
[2019-06-15] MEDS: ENOXAPARIN 40 MG/0.4 ML SYRINGE (J1650) SC SCH (09:01)
[2019-06-15] MEDS: LETROZOLE GT SCH (09:01)
[2019-06-15] MEDS: NICOTINE 21MG/24HR 1 EA TRANSDERMAL TD SCH (09:01)
[2019-06-15] MEDS: PANTOPRAZOLE 40MG INJ (PROTONIX) (C9113) IV SCH (09:01)
[2019-06-15] MEDS: BACITRACIN OINT 30GM TOP SCH ×2 (09:02→20:08)
[2019-06-15 09:59] LABS: HEMATOCRIT 29.8 % (36.0-47.0); HEMOGLOBIN 9.3 g/dl (12.0-15.5); MEAN CORPUSCULAR HEMOGLOBIN 29.7 pg (27.0-33.0); MEAN CORPUSCULAR HGB CONC 31.2 g/dl (32.0-36.5); MEAN CORPUSCULAR VOLUME 95.2 fl (80.0-96.0); PLATELET COUNT, AUTOMATED 523 10^3/uL (150-450); RED BLOOD COUNT 3.13 10^6/uL (4.00-5.40); WHITE BLOOD COUNT 16.8 10^3/uL (4.0-10.0)
[2019-06-15 10:20] LABS: BLOOD UREA NITROGEN 18 MG/DL (7-18); CALCIUM LEVEL 8.2 MG/DL (8.8-10.2); CARBON DIOXIDE LEVEL 31 MEQ/L (21-32); CHLORIDE LEVEL 103 MEQ/L (98-107); CREATININE FOR GFR 0.52 MG/DL (0.55-1.30); GLOMERULAR FILTRATION RATE > 60.0 (>39); GLUCOSE, FASTING 105 MG/DL (70-100); SODIUM LEVEL 140 MEQ/L (136-145)
[2019-06-15] MEDS: ALPRAZolam 0.25 MG TAB PO PRN (10:24)
--- NOTE | 2019-06-15 11:50 | IPNPDOC ---
Text Note Date of Service The patient was seen on 06/15/19. NOTE Subjective: Patient is a 73-year-old female with a past medical history of COPD on BiPAP who presented to the emergency room with complaints of shortness of breath and productive cough. Patient was intubated upon arrival to the ER because of severe respiratory distress. Patient was found to have metastatic disease with involvement of her abdomen, lung and ribs. Patient had failed extubation and subsequently received a tracheostomy on 05/31/[address] Shaw. Patient was seen and examined at the bedside. , Currently patient denies any chest pain, shortness of breath, palpitations. Denies nausea, vomiting, abdominal Objective: Vitals (See below) General: Lying in bed, comfortable, AAOx3 HEENT: NC, AT, + Trach CVS: RRR, +S1S2 Lungs: Fair air entry b/l, no appreciable wheezing / rhonchi / rales Abdomen: Soft, non-distended, non-tender, + PEG tube (site appears clean without any evidence of infection) Extremities: Trace LE edema, - Calf tenderness Assessment and plan: Acute on chronic hypoxic and hypercapnic respiratory failure - s/p Tracheostomy (05/31) - Patient continues with pressure support at night and trial periods of trach collar - Pulmonology on consultation s/p COPD exacerbation - s/p Corticosteroids - c/w inhaled therapy as ordered Metastatic adenocarcinoma - Etiology has not been delineated; possibly 2/2 Endometrial, atypical breast or ovarian - Pathology 05/28: Metastatic adenocarcinoma, likely breast primary - Pathology has been sent out for additional testing / markers - c/w Letrozole - Dr. Blackman, medical oncologist; on consult s/p Suspected acute blood loss 2/2 vaginal bleeding - possibly 2/2 Letrozole - Reported to have soaked an entire pad; no further bleeding episodes noted - Hg has remained stable Diet - s/p PEG tube on 06/12/[address] Liao - Tube feedings have been resumed Urinary retention - Patient was started on tamsulosin - Failed voiding trial on 06/13/2019; Pringle was reinserted - Will reattempt a voiding trial on Monday Active tobacco abuse - Advised smoking cessation - c/w Nicotine patch Anxiety - c/w Alprazolam GI prophylaxis - c/w Protonix DVT prophylaxis - Lovenox resumed Code status: - Full code; patient does have a poor prognosis, but despite this would like to continue with full resuscitation Disposition: - PFS looking into facility that can support trach / peg / possible chemotherapy - Looking into [place], [place] facility - Had extensive discussion with family on 06/14/2019 regarding placement options and over [place]; I have addressed all their questions and concerns; they're currently contemplating transitioning to [place] VS,Fishbone, I+O VS, Fishbone, I+O Laboratory Tests 06/15/19 09:47 Vital Signs Date Time Temp Pulse Resp B/P (MAP) Pulse Ox O2 Delivery O2 Flow Rate FiO2 06/15/19 08:00 97.6 94 22 122/57 (78) 94 Ventilator 30 06/14/19 16:26 10.0 I&O- Last 24 Hours up to 6 AM 06/15/19 05:59 Intake Total 1840 ml Output Total 1525 ml Balance 315 ml LEXII KELLEY MD Jun 15, 2019 11:50
--- NOTE | 2019-06-15 13:07 | IPN ---
DATE: 06/15/2019 The patient was seen and examined this morning during bedside rounds. The patient had no significant events overnight. She was on ventilator with the pressure support settings and tolerated well. During the day yesterday she was out of bed in the chair and did tolerate trache collar for 2 hours during the day. The patient denies any chest pain. She denies any shortness of breath. She does have some cough occasionally which is productive of some thick white mucus. She has not had any fevers or chills overnight. PHYSICAL EXAM: Vitals: Temperature 97.5, pulse 93, respiratory rate 22-30, O2 sat 93-94% on the ventilator. Blood pressure 112/58, ins 1.6 liters, out 1.7. General: The patient is a pleasant female who is sitting in the bed, does not appear to be in any acute distress. Is awake, alert and is able to answer questions with gestures and writing. HEENT: Normocephalic, atraumatic. Moist mucous membranes. She has a well-healing ulcer on her left lower lip. Neck is supple. There is a tracheostomy in place with the gauze around it with some secretions. Cardiovascular: Regular rate and rhythm. Normal S1-S2. No murmurs appreciated. Respiratory: Diminished breath sounds bilaterally with improvement in her wheezes and no rhonchi or rales. Abdomen is soft, nontender, nondistended. Small subcutaneous nodules palpated. There is a PEG tube in place. Extremities: Improvement in the bilateral lower extremity edema. LABS: WBC 16.8, hemoglobin 9.3, platelets 523. Chemistry - sodium is 148, potassium 4.0, chloride 103, bicarb 31, BUN 18, creatinine is 0.52, glucose 105. ASSESSMENT AND PLAN: The patient is a 73-year-old female with a history of chronic obstructive pulmonary artery disease (COPD) who presented with acute on chronic hypercapnic respiratory failure secondary to an acute COPD exacerbation requiring mechanical ventilation. The patient had difficulty weaning from the ventilator and so is status post tracheostomy. The patient is able to tolerate periods of trache collar intermittently throughout the day but does require continued mechanical ventilation on pressure support. She also was diagnosed during her hospitalization with metastatic adenocarcinoma likely ovarian in origin from imaging and pathology. She was started on letrozole by oncology. The patient has also had a PEG tube placed recently and she is currently awaiting placement in the long-term acute care facility. - Continue with trache collar as tolerated during the day with return to the ventilator with pressure support settings of 10 over 5 with FiO2 of 30% at night and during the day as needed. - Will continue with nebulizer treatments with Pulmicort and Perforomist as well as with ipratropium. Continue with Xopenex as needed. - Continue with tube feeds through the PEG tube with protein supplementation for protein malnourishment. Continue to adjust her bowel regimen to her bowel movements. - The patient was given low dose of Lasix with improvement in her urine output. She has also had some improvement in her mild lower extremity edema. Will continue to monitor her electrolytes and renal function. - The patient did have some increased leukocytosis. Her repeat x-ray did not show any new or focal findings and she has not had any significant change in her sputum production, no fevers noted. Will continue to monitor and hold off on antibiotics at this time. - The patient was started on bupropion for some of her depression symptoms. She also was a former active smoker and so this will also help with her smoking cessation. Will also continue with her alprazolam as needed for anxiety. - The patient had a Pringle catheter replaced and she was retaining urine. Will continue to monitor and reassess for appropriateness for a trial of void. Will continue with physical therapy (PT)/occupational therapy (OT) and out of bed to chair. Deep venous thrombosis (DVT) prophylaxis, Lovenox. Gastrointestinal (GI) prophylaxis, Protonix. CODE STATUS: Full code. DISPOSITION: The patient is awaiting placement in a long-term acute care facility with capabilities to administer her letrozole chemotherapy. MTDD
[2019-06-16] VITALS (7 sets, daily range): BP systolic 115–132; BP diastolic 56–62; O2SAT 92–95
[2019-06-16 05:24] LABS: BLOOD UREA NITROGEN 21 MG/DL (7-18); CALCIUM LEVEL 8.7 MG/DL (8.8-10.2); CARBON DIOXIDE LEVEL 32 MEQ/L (21-32); CHLORIDE LEVEL 100 MEQ/L (98-107); CREATININE FOR GFR 0.58 MG/DL (0.55-1.30); GLOMERULAR FILTRATION RATE > 60.0 (>39); GLUCOSE, FASTING 106 MG/DL (70-100); POTASSIUM SERUM 4.1 MEQ/L (3.5-5.1); SODIUM LEVEL 137 MEQ/L (136-145)
[2019-06-16] MEDS: SLF 3 ML SYR IV SCH ×3 (06:05→20:14)
[2019-06-16] MEDS: BUDESONIDE 0.5 MG/2 ML INHALATION SUSPENSION INH SCH ×2 (07:35→19:33)
[2019-06-16] MEDS: FORMOTEROL FUMARATE 20 MCG/2 ML INHALATION SOLUTION (PERFOROMIST) INH SCH ×2 (07:35→19:33)
[2019-06-16] MEDS: IPRATROPIUM 0.02% SOLN 0.5MG/2.5 ML NEB INH SCH ×3 (07:35→19:33)
[2019-06-16] MEDS: PANTOPRAZOLE 40MG INJ (PROTONIX) (C9113) IV SCH (08:29)
[2019-06-16] MEDS: ALPRAZolam 0.25 MG TAB PO PRN (08:29)
[2019-06-16] MEDS: NICOTINE 21MG/24HR 1 EA TRANSDERMAL TD SCH (08:29)
[2019-06-16] MEDS: SENOKOT S TAB PO SCH ×2 (08:30→20:12)
[2019-06-16] MEDS: FUROSEMIDE 20 MG TAB PO SCH (08:30)
[2019-06-16] MEDS: ENOXAPARIN 40 MG/0.4 ML SYRINGE (J1650) SC SCH (08:30)
[2019-06-16] MEDS: BACITRACIN OINT 30GM TOP SCH ×2 (08:31→20:14)
[2019-06-16] MEDS: CHLORHEXIDINE GLUCONATE 0.12 % 15ML UDC (PERIDEX ORAL RINSE) MT SCH ×2 (08:31→20:12)
[2019-06-16] MEDS: TAMSULOSIN 0.4 MG CAP PO SCH (08:31)
[2019-06-16] MEDS: buPROPion 75 MG TAB PO SCH ×3 (08:31→20:13)
[2019-06-16] MEDS: LETROZOLE GT SCH (08:31)
--- NOTE | 2019-06-16 10:04 | IPNPDOC ---
Text Note Date of Service The patient was seen on 06/16/19. NOTE Subjective: Patient is a 73-year-old female with a past medical history of COPD on BiPAP who presented to the emergency room with complaints of shortness of breath and productive cough. Patient was intubated upon arrival to the ER because of severe respiratory distress. Patient was found to have metastatic disease with involvement of her abdomen, lung and ribs. Patient had failed extubation and subsequently received a tracheostomy on 05/31/[address] Shaw. Patient was seen and examined at the bedside. Patient denies chest pain, shortness of breath, palpitations. Denies any problems overnight. Still has a Pringle catheter in place with plans to discontinue it tomorrow. Objective: Vitals (See below) General: Lying in bed, comfortable, AAOx3 HEENT: NC, AT, + Trach CVS: RRR, +S1S2 Lungs: Air entry is fair bilaterally without evidence of rhonchi, rales or wheezing Abdomen: Remains soft, without any distention or tenderness. PEG tube site appears clean without any tenderness Extremities: Lower extremity edema is improving, - Calf tenderness Assessment and plan: Ventilatory dependent respiratory failure / Acute on chronic hypoxic and hypercapnic respiratory failure - s/p Tracheostomy (05/31) - Patient continues with pressure support at night and trial periods of trach collar - Pulmonology on consultation s/p COPD exacerbation - s/p Corticosteroids - c/w inhaled therapy as ordered Metastatic adenocarcinoma - Etiology has not been delineated; possibly 2/2 Endometrial, atypical breast or ovarian - Patient has a lesion on her mid back; unclear if this is infectious or metasta tic in nature - however, she has been on broad-spectrum antibiotics for greater than 6 days - Pathology 05/28: Metastatic adenocarcinoma, likely breast primary - Pathology has been sent out for additional testing / markers - c/w Letrozole - Dr. Blackman, medical oncologist; on consult s/p Suspected acute blood loss 2/2 vaginal bleeding - possibly 2/2 Letrozole - Reported to have soaked an entire pad; no further bleeding episodes noted - Hg has remained stable Diet - s/p PEG tube on 06/12/[address] Liao - Tube feedings have been resumed Urinary retention / Reduced urine output / Fluid overload - Failed voiding trial on 06/13/2019; Pringle was reinserted - Will reattempt a voiding trial on Tomorrow - c/w tamsulosin - c/w Furosemide low dose - output has improved Active tobacco abuse - Advised smoking cessation - c/w Nicotine patch Anxiety - c/w Alprazolam GI prophylaxis - c/w Protonix DVT prophylaxis - c/w Lovenox Code status: - Full code; patient does have a poor prognosis, but despite this would like to continue with full resuscitation Disposition: - PFS looking into facility that can support trach / peg / possible chemotherapy - Looking into [place], [place] facility - Patient's family is again open to the idea of transition to [place] facility in [place] VS,Fishbone, I+O VS, Fishbone, I+O Laboratory Tests 06/16/19 04:46 Vital Signs Date Time Temp Pulse Resp B/P (MAP) Pulse Ox O2 Delivery O2 Flow Rate FiO2 06/16/19 07:36 92 Ventilator 30 06/16/19 07:36 103 23 06/16/19 04:36 98.4 115/56 (75) 06/15/19 11:28 10.0 I&O- Last 24 Hours up to 6 AM 06/16/19 06:00 Intake Total 1940 ml Output Total 1150 ml Balance 790 ml LEXII KELLEY MD Jun 16, 2019 10:04
--- NOTE | 2019-06-16 11:09 | IPN ---
DATE: 06/16/2019 The patient was seen, examined this morning during bedside rounds. Yesterday the patient was off of the ventilator on trache collar for more than 2 hours approximately two and half hours. She tolerated that well. Overnight she had no significant events. This morning denies any significant chest pain or shortness of breath. She feels her cough has also somewhat improved. Has not had any fevers or chills overnight. PHYSICAL EXAM: Temperature 98.4, pulse 01/03, respirations 23-30, blood pressure 115/56, O2 sat 94-92% on 30% FIO2 in 1.7 liters out 1.2 liters. General: The patient is a pleasant female who is sitting in bed is awake and alert and able to answer questions with gestures and writing. Does not appear to be any acute distress. HEENT: Normocephalic, atraumatic. Moist mucous membranes. She has a well-healed ulcer on her left lower lip. Neck is supple. There is tracheostomy in place with gauze around it and some dried secretions. Cardiovascular: Regular rate and rhythm. Normal S1-S2. No murmurs appreciated. Respiratory: Diminished breath sounds bilaterally with few wheezes noted. No rhonchi or rales. Abdomen is soft, nontender, nondistended. There is a peg tube in place. Extremities: There is no peripheral edema in the bilateral lower extremities. LABS: Sodium is 137, potassium 4.1, chloride 100, bicarb 32, BUN 21, creatinine 0.58, glucose 106. ASSESSMENT/PLAN: The patient is a 73-year female with history of COPD who presented with acute on chronic hypercapnic respiratory failure secondary to acute COPD exacerbation requiring mechanical ventilation. The patient had difficulty weaning from ventilator and is status post tracheostomy. The patient is also now status post PEG tube placement and has been tolerating periods of trache collar intermittently throughout the day but does require being placed back on mechanical ventilation on pressure support at night. 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 - Will continue the patient with trache collar during the day and increase the time of trache collar as tolerated. We will attempt for 3 hours today if she tolerates. Will place the patient back on the ventilator with pressure support settings of 10 over 5 with FIO2 of 30% at night and during the day as needed. - continue with nebulizer treatments with Pulmicort and ipratropium. Continue with Xopenex as needed. - Continue tube feeds through the peg tube with protein supplementation for her protein malnourishment. Continue with her bowel regimen and adjust the dosage to her bowel movements. - The patient is on a low-dose Lasix which she will have another dose today and then complete the dosage. She has improvement in her extremity edema and her electrolytes, renal function have remained stable. - Continue with head of bed elevation and aspiration precautions. - Continue with alprazolam as needed for anxiety as well as bupropion for some of her depression symptoms and to help with her smoking cessation. - Continue with indwelling sheikh catheter. The patient had a trial of void which she failed and the Sheikh was replaced. Will need to continue to monitor and reassess for appropriateness for a repeat trial of void. -Continue PT/OT, out of bed to chair. DVT prophylax Lovenox. GI prophylaxis. Protonix. code status full code. DISPOSITION: The patient is still awaiting placement in a long-term acute care facility with the ability to administer her oral chemotherapy. MTDD
[2019-06-16] MEDS: ACETAMINOPHEN 325 MG/10.15 ML UDC GT PRN (14:59)
[2019-06-17] VITALS (7 sets, daily range): BP systolic 101–123; BP diastolic 56–64
[2019-06-17 05:05] LABS: HEMATOCRIT 31.2 % (36.0-47.0); HEMOGLOBIN 9.6 g/dl (12.0-15.5); MEAN CORPUSCULAR HEMOGLOBIN 29.4 pg (27.0-33.0); MEAN CORPUSCULAR HGB CONC 30.8 g/dl (32.0-36.5); MEAN CORPUSCULAR VOLUME 95.4 fl (80.0-96.0); PLATELET COUNT, AUTOMATED 566 10^3/uL (150-450); RED BLOOD COUNT 3.27 10^6/uL (4.00-5.40); WHITE BLOOD COUNT 19.8 10^3/uL (4.0-10.0)
[2019-06-17 05:40] LABS: BLOOD UREA NITROGEN 19 MG/DL (7-18); CALCIUM LEVEL 8.5 MG/DL (8.8-10.2); CARBON DIOXIDE LEVEL 31 MEQ/L (21-32); CHLORIDE LEVEL 101 MEQ/L (98-107); CREATININE FOR GFR 0.56 MG/DL (0.55-1.30); GLOMERULAR FILTRATION RATE > 60.0 (>39); GLUCOSE, FASTING 109 MG/DL (70-100); POTASSIUM SERUM 4.7 MEQ/L (3.5-5.1); SODIUM LEVEL 139 MEQ/L (136-145)
[2019-06-17] MEDS: SLF 3 ML SYR IV SCH ×3 (06:33→20:28)
[2019-06-17] MEDS: FORMOTEROL FUMARATE 20 MCG/2 ML INHALATION SOLUTION (PERFOROMIST) INH SCH ×2 (07:24→20:16)
[2019-06-17] MEDS: IPRATROPIUM 0.02% SOLN 0.5MG/2.5 ML NEB INH SCH ×3 (07:24→20:16)
[2019-06-17] MEDS: BUDESONIDE 0.5 MG/2 ML INHALATION SUSPENSION INH SCH ×2 (07:24→20:16)
[2019-06-17] MEDS: TAMSULOSIN 0.4 MG CAP PO SCH (08:15)
[2019-06-17] MEDS: NICOTINE 21MG/24HR 1 EA TRANSDERMAL TD SCH (08:15)
[2019-06-17] MEDS: ENOXAPARIN 40 MG/0.4 ML SYRINGE (J1650) SC SCH (08:15)
[2019-06-17] MEDS: CHLORHEXIDINE GLUCONATE 0.12 % 15ML UDC (PERIDEX ORAL RINSE) MT SCH ×2 (08:15→20:27)
[2019-06-17] MEDS: PANTOPRAZOLE 40MG INJ (PROTONIX) (C9113) IV SCH (08:15)
[2019-06-17] MEDS: ALPRAZolam 0.25 MG TAB PO PRN ×2 (08:15→20:51)
[2019-06-17] MEDS: LETROZOLE GT SCH (08:15)
[2019-06-17] MEDS: BACITRACIN OINT 30GM TOP SCH ×2 (08:16→20:28)
[2019-06-17] MEDS: SENOKOT S TAB PO SCH ×2 (08:16→20:28)
[2019-06-17] MEDS: buPROPion 75 MG TAB PO SCH ×3 (08:16→20:27)
[2019-06-17] MEDS ORDERED: LIDOCAINE W/EPINEPHRINE 1% 20ML VIAL As Ordered ONE (10:10)
[2019-06-17] MEDS: ACETAMINOPHEN 325 MG/10.15 ML UDC GT PRN ×2 (10:50→20:27)
--- NOTE | 2019-06-17 11:53 | IPNPDOC ---
Text Note Date of Service The patient was seen on 06/17/19. NOTE Subjective: Patient is a 73-year-old female with a past medical history of COPD on BiPAP who presented to the emergency room with complaints of shortness of breath and productive cough. Patient was intubated upon arrival to the ER because of severe respiratory distress. Patient was found to have metastatic disease with involvement of her abdomen, lung and ribs. Patient had failed extubation and subsequently received a tracheostomy on 05/31/[address] Shaw. Patient was seen and examined at the bedside.Patient was working with physical therapy and occupational therapy at the time. . She denies any chest pain or palpitations. Denied nausea, vomiting, abdominal discomfort or diarrhea. She did report some back pain around the site of inflammation / drainage. Yesterday patient had pus draining from her back. This was sent for further analysis. Objective: Vitals (See below) General: Lying in bed, comfortable, AAOx3 HEENT: NC, AT, + Trach CVS: RRR, +S1S2 Lungs: Auscultation is without rhonchi, rales or wheezing and remains fair bilaterally Abdomen: Abdomen is soft, without any distention or tenderness. + PEG tube Back: Mid back with spontaneously draining abscess; left mid back - area with fluctuance / tenderness / erythema Extremities: Lower extremities do not reveal any significant edema, - Calf tenderness Assessment and plan: Ventilatory dependent respiratory failure / Acute on chronic hypoxic and hypercapnic respiratory failure - s/p Tracheostomy (05/31) - Patient continues with pressure support at night and trial periods of trach collar - Pulmonology on consultation Leukocytosis - possibly 2/2 infectious etiology - possibly 2/2 SSTI on back, possibly 2/2 reactive etiology - Yesterday patient had a back lesion that began to drain - Patient remains afebrile and hemodynamically stable - Fluid was sent for analysis - Will consider surgical consultation for further drainage - Will start Doxycycline for coverage of MRSA (Day #1) s/p COPD exacerbation - s/p Corticosteroids - c/w inhaled therapy as ordered Metastatic adenocarcinoma - Etiology has not been delineated; possibly 2/2 Endometrial, atypical breast or ovarian - Patient has a lesion on her mid back; unclear if this is infectious or metastatic in nature - however, she has been on broad-spectrum antibiotics for greater than 6 days - Pathology 05/28: Metastatic adenocarcinoma, likely breast primary - Pathology has been sent out for additional testing / markers - c/w Letrozole - Dr. Blackman, medical oncologist; on consult s/p Suspected acute blood loss 2/2 vaginal bleeding - possibly 2/2 Letrozole - Reported to have soaked an entire pad; no further bleeding episodes noted - Hg has remained stable Diet - s/p PEG tube on 06/12/[address] Liao - Tube feedings have been resumed Urinary retention / Reduced urine output / Fluid overload - Failed voiding trial on 06/13/2019; Pringle was reinserted; Straight cath was unsuccessful - Found to have retention of >500cc of urine on 06/13 - Will discontinue Pringle today and re-perform voiding trial - c/w Tamsulosin - c/w Furosemide low dose - output has improved Active tobacco abuse - Advised smoking cessation - c/w Nicotine patch Anxiety - c/w Alprazolam GI prophylaxis - c/w Protonix DVT prophylaxis - c/w Lovenox Code status: - Full code; patient does have a poor prognosis, but despite this would like to continue with full resuscitation Disposition: - PFS looking into facility that can support trach / peg / possible chemotherapy - Will be placed at [facility] in [place], [place] - Transport established for tomorrow VS,Dot, I+O VS, Farhate, I+O Laboratory Tests 06/17/19 04:54 Vital Signs Date Time Temp Pulse Resp B/P (MAP) Pulse Ox O2 Delivery O2 Flow Rate FiO2 06/17/19 07:30 28 06/17/19 07:30 93 30 06/17/19 04:00 97.9 74 115/64 (81) Trach Collar 06/15/19 11:28 10.0 I&O- Last 24 Hours up to 6 AM 06/17/19 06:00 Intake Total 1370 ml Output Total 1565 ml Balance -195 ml LEXII KELLEY MD Jun 17, 2019 11:53
--- NOTE | 2019-06-17 12:00 | RO ---
DATE OF PROCEDURE: 06/17/2019 PREPROCEDURE DIAGNOSIS: Fluid-filled cyst. POSTPROCEDURE DIAGNOSIS: possible lipoma vs metastatic lesion in subcutaneous tissue PROCEDURE: Incision and drainage procedure SURGEON: Dr. Wendie Chow MD, PGY 2 SUPERVISING PHYSICIAN: Dr. Nitza Troy. ANESTHESIA: 1% lidocaine and epinephrine. DESCRIPTION OF PROCEDURE: A time-out was performed prior to initiating the procedure. The area was prepped and draped in the usual sterile manner. The site was anesthetized with 1% lidocaine and epinephrine. A cross incision along the local skin line was made and there was no purulent material expressed. The abscess was explored thoroughly and was found to have hard tissue that nothing could be drained from. Bleeding was minimal. The incision was closed with three lateral interrupted sutures and hemostasis was achieved. The patient tolerated the procedure well without complications. Standard postprocedure care is explained and return precautions are given. OLY
--- NOTE | 2019-06-17 12:27 | IPN ---
DATE: 06/17/2019 SUBJECTIVE: The patient reportedly did well overnight. She went almost 3 hours off of the vent yesterday and tolerated it well. This morning she states she is in a little bit of pain in her back where nursing was able to drain a large cyst. Nursing reports 40 mL of fluid came from the cyst and it has been sent to the lab for further studies. Otherwise, the patient is eager to find out the plan today and to move along with pending transfer to facility. She does report that she is still coughing but it has improved. She did not have any fevers or chills overnight. Objectively, her vitals are temperature of 97.9 temporally, heart rate of 74, respiratory rate of 28, blood pressure 115/64 with a mean arterial pressure (MAP) of 81. Pulse oximetry is 94% on 30% FiO2. Her ins and outs she is net negative total balance. Yesterday, she had three incontinent bowel movements and today she had two. Her urine output is almost 15 mL overnight and 500 today with a total of about 2000 mL over the last 24 hours. PHYSICAL EXAM: Generally, the patient is sitting up at the bedside. She is calm. She is not in any acute distress, very pleasant. She is gesturing and writing for communication. HEENT EXAM: Normocephalic, atraumatic. She has moist mucous membranes. She has a well healed ulcer on her left lower lip. Her neck is supple. There is a tracheostomy in place with gauze around it and some dry secretions. CARDIOVASCULAR: Regular rate and rhythm. No murmurs, rubs or gallops. Normal S1. Normal S2. RESPIRATORY: Diminished breath sounds bilaterally with a few wheezes noted mostly on the right middle and lower lobes. Otherwise, clear to auscultation bilaterally with no rhonchi and no rales. ABDOMEN: Soft, nontender, nondistended. Positive bowel sounds. Noted percutaneous endoscopic gastrostomy (PEG) tube in place. The PEG tube site does not appear infected. It is clean, dry and intact. EXTREMITIES: There is no peripheral edema in the bilateral lower extremities. SKIN: There are no new rashes or ulcers. She does have a well healed ulcer in the middle of her upper back as well as a large hard lesion on the left lateral back. Labs today, her white blood cell count is 19.8, it is up from 16.8 yesterday, hemoglobin is 9.6, hematocrit 31.2. Platelet count is 566. Her sodium is 139, potassium 4.7, carbon dioxide 31, BUN is 19, and creatinine 0.56. Fasting glucose is 109. There have been no recent ABGs done. ASSESSMENT: This is a 73-year-old female with history of chronic obstructive pulmonary artery disease (COPD) who presented with an acute on chronic hypercapnic respiratory failure secondary to acute COPD exacerbation requiring mechanical ventilation. She had difficulty weaning from the ventilator and status post tracheostomy. She is intermittently off of the ventilator and able to tolerate her own breathing. The patient is also status post PEG tube placement and has been tolerating tube feeds. Hospital course has been complicated by new diagnosed metastatic adenocarcinoma likely ovarian in origin. PLAN: Today, we attempted incision and drainage (I and D) of the left back lesion on the lateral left back, which did not demonstrate express any fluid for culture. It is most likely deeper in the subcutaneous tissue and it could be a lipoma vs metastatic lesion. The incision is closed and site will be monitored. Otherwise, we will continue the patient on her trache collar during the day and will increase gradually the time off of the ventilator, and today approximately try for more than 3 hours, which she was able to tolerate yesterday. Once she is back on the ventilator we will keep the same settings with pressure support settings of 10/5 with FiO2 of 30% at night and during the day as needed. Continue with her nebulized treatments of Pulmicort and ipratropium. Pulmicort was increased yesterday. Continue the Xopenex as needed. Continue tube feeds with PEG tube with protein supplementation for nourishment. Continue bowel regimen, although she is having a regular bowel movements at this point. We will also remove her indwelling urinary catheter, after which, we will do a urinalysis (UA) and culture to assess for urinary tract infection (UTI) as a reason for her white blood cell count increasing. Continue head of bed elevation for aspiration precaution. She will continue to receive Xanax for anxiety and bupropion for her depression symptoms. Continue with physical therapy (PT), occupational therapy (OT), and out of bed to chair as much as possible. Deep venous thrombosis (DVT) prophylaxis with Lovenox. Gastrointestinal (GI) prophylaxis with Protonix. Code status is FULL CODE. DISPOSITION: The patient is awaiting placement in a long-term acute care facility with ability to administer oral chemotherapy. MTDD
[2019-06-17] MEDS: LEVALBUTEROL 1.25 MG/0.5 ML CONCENTRATE NEB INH PRN (14:07)
[2019-06-17] MEDS: DOXYCYCLINE HYCLATE 100 MG TAB PO SCH ×2 (15:27→20:27)
[2019-06-17] MEDS ORDERED: BUDESONIDE 0.5 MG/2 ML INHALATION SUSPENSION INH SCH (20:00)
[2019-06-18] VITALS (8 sets, daily range): BP systolic 108–162; BP diastolic 57–73
[2019-06-18 05:30] LABS: BLOOD UREA NITROGEN 20 MG/DL (7-18); CALCIUM LEVEL 8.5 MG/DL (8.8-10.2); CARBON DIOXIDE LEVEL 31 MEQ/L (21-32); CHLORIDE LEVEL 100 MEQ/L (98-107); CREATININE FOR GFR 0.54 MG/DL (0.55-1.30); GLOMERULAR FILTRATION RATE > 60.0 (>39); GLUCOSE, FASTING 103 MG/DL (70-100); POTASSIUM SERUM 4.7 MEQ/L (3.5-5.1); SODIUM LEVEL 138 MEQ/L (136-145)
[2019-06-18] MEDS: SLF 3 ML SYR IV SCH (06:36)
[2019-06-18 07:09] LABS: BASO # 0.1 10^3/uL (0.0-0.2); BASO % 0.3 % (0.0-1.0); EOS # 0.2 10^3/uL (0.0-0.5); EOS % 1.3 % (0.0-3.0); HEMOGLOBIN 9.2 g/dl (12.0-15.5); LYMPH % 10.9 % (24.0-44.0); MEAN CORPUSCULAR HEMOGLOBIN 29.4 pg (27.0-33.0); MEAN CORPUSCULAR HGB CONC 30.7 g/dl (32.0-36.5); MEAN CORPUSCULAR VOLUME 95.8 fl (80.0-96.0); MONO # 1.2 10^3/uL (0.0-0.8); MONO % 6.5 % (0.0-5.0); NEUTROPHILS # 14.4 10^3/uL (1.5-8.5); NEUTROPHILS % 78.3 % (36.0-66.0); PLATELET COUNT, AUTOMATED 540 10^3/uL (150-450); RED BLOOD COUNT 3.13 10^6/uL (4.00-5.40); WHITE BLOOD COUNT 18.4 10^3/uL (4.0-10.0)
[2019-06-18] MEDS: FORMOTEROL FUMARATE 20 MCG/2 ML INHALATION SOLUTION (PERFOROMIST) INH SCH (07:17)
[2019-06-18] MEDS: BUDESONIDE 0.5 MG/2 ML INHALATION SUSPENSION INH SCH (07:17)
[2019-06-18] MEDS: IPRATROPIUM 0.02% SOLN 0.5MG/2.5 ML NEB INH SCH (07:17)
[2019-06-18] MEDS: ENOXAPARIN 40 MG/0.4 ML SYRINGE (J1650) SC SCH (07:55)
[2019-06-18] MEDS: LETROZOLE GT SCH (07:55)
[2019-06-18] MEDS: CHLORHEXIDINE GLUCONATE 0.12 % 15ML UDC (PERIDEX ORAL RINSE) MT SCH (07:55)
[2019-06-18] MEDS: PANTOPRAZOLE 40MG INJ (PROTONIX) (C9113) IV SCH (07:55)
[2019-06-18] MEDS: BACITRACIN OINT 30GM TOP SCH (07:56)
[2019-06-18] MEDS: NICOTINE 21MG/24HR 1 EA TRANSDERMAL TD SCH (07:56)
[2019-06-18] MEDS ORDERED: buPROPion 75 MG TAB GT SCH (09:00)
[2019-06-18] MEDS ORDERED: SENOKOT S TAB GT SCH (09:00)
[2019-06-18] MEDS ORDERED: DOXYCYCLINE HYCLATE 100 MG TAB GT SCH (09:00)
[2019-06-18] MEDS ORDERED: ALPR0.25 PO (09:04)
[2019-06-18] MEDS ORDERED: BUDE0.5S6 INH (09:04)
[2019-06-18] MEDS ORDERED: ACET325S6 GT (09:04)
[2019-06-18] MEDS ORDERED: BUPR75TA5 GT (09:04)
[2019-06-18] MEDS ORDERED: PERF20NE2 INH (09:04)
[2019-06-18] MEDS ORDERED: BACI50OI TOP (09:04)
[2019-06-18] MEDS ORDERED: LETR2.5T2 GT (09:04)
[2019-06-18] MEDS ORDERED: NICO21PAT TD (09:04)
[2019-06-18] MEDS ORDERED: LOVE1INJ SC (09:04)
[2019-06-18] MEDS ORDERED: DOXY100T GT (09:04)
[2019-06-18] MEDS ORDERED: PROT40IN4 IV (09:04)
[2019-06-18] MEDS ORDERED: DOXYCYCLINE HYCLATE 100 MG TAB PO SCH (10:00)
--- NOTE | 2019-06-18 16:40 | DS.PDOC ---
Discharge Summary General Date of Admission May 20, 2019 at 08:10 Date of Discharge 06/18/2019 Discharge Summary PROCEDURES PERFORMED DURING STAY: 05/31/2019: Dr. Shaw; Tracheotomy and insertion of nasogastric tube. 06/12/2019: Dr. Liao; Esophagogastroduodenoscopy with placement of Cook Flow 20 percutaneous endoscopic gastrostomy tube. 06/17/2019: Dr. Chow; Incision and drainage procedure ADMITTING DIAGNOSES / DISCHARGE DIAGNOSES: Ventilatory dependent respiratory failure / Acute on chronic hypoxic and hypercapnic respiratory failure Leukocytosis - possibly 2/2 infectious etiology - possibly 2/2 SSTI on back, possibly 2/2 reactive etiology s/p COPD exacerbation Metastatic adenocarcinoma s/p Suspected acute blood loss 2/2 vaginal bleeding - possibly 2/2 Letrozole Diet Urinary retention / Reduced urine output / Fluid overload Active tobacco abuse Anxiety GI prophylaxis DVT prophylaxis COMPLICATIONS/CHIEF COMPLAINT: Shortness of breath HISTORY OF PRESENT ILLNESS: Patient is a 73-year-old female with a past medical history of COPD on BiPAP who presented to the emergency room with complaints of shortness of breath and productive cough. Patient was intubated upon arrival to the ER because of severe respiratory distress. Patient was found to have metastatic disease with involvement of her abdomen, lung and ribs. Patient had failed extubation and subsequently received a tracheostomy on 05/31/[address] Shaw. Patient was seen and examined at the bedside.Patient was working with physical therapy and occupational therapy at the time. . She denies any chest pain or palpitations. Denied nausea, vomiting, abdominal discomfort or diarrhea. HOSPITAL COURSE: Ventilatory dependent respiratory failure / Acute on chronic hypoxic and hypercapnic respiratory failure - s/p Tracheostomy (05/31) - Patient continues with pressure support at night and trial periods of trach collar - Pulmonology on consultation Leukocytosis - possibly 2/2 infectious etiology - possibly 2/2 SSTI on back, possibly 2/2 reactive etiology - Yesterday patient had a back lesion that began to drain - Patient remains afebrile and hemodynamically stable - Wound cultures pending - s/p surgical incision and drainage - Fluid was sent for analysis - c/w Doxycycline for coverage of MRSA (Day #2) s/p COPD exacerbation - s/p Corticosteroids - c/w inhaled therapy as ordered Metastatic adenocarcinoma - Etiology has not been delineated; possibly 2/2 Endometrial, atypical breast or ovarian - Patient has a lesion on her mid back; unclear if this is infectious or metastatic in nature - however, she has been on broad-spectrum antibiotics for greater than 6 days - Pathology 05/28: Metastatic adenocarcinoma, likely breast primary - Pathology has been sent out for additional testing / markers - c/w Letrozole - Dr. Blackman, medical oncologist; on consult s/p Suspected acute blood loss 2/2 vaginal bleeding - possibly 2/2 Letrozole - Reported to have soaked an entire pad; no further bleeding episodes noted - Hg has remained stable Diet - s/p PEG tube on 06/12/[address] Liao - Tube feedings have been resumed Urinary retention / Reduced urine output / Fluid overload - Failed voiding trial on 06/13/2019; Pringle was reinserted; Straight cath was unsuccessful - Found to have retention of >500cc of urine on 06/13 - Will replace Pringle if retaining for transport - c/w Tamsulosin - c/w Furosemide low dose - output has improved Active tobacco abuse - Advised smoking cessation - c/w Nicotine patch Anxiety - c/w Alprazolam GI prophylaxis - c/w Protonix DVT prophylaxis - c/w Lovenox DISCHARGE MEDICATIONS: Please see below. ALLERGIES: Please see below. PHYSICAL EXAMINATION ON DISCHARGE: Vitals (See below) General: Lying in bed, comfortable, AAOx3 HEENT: NC, AT, + Trach CVS: RRR, +S1S2 Lungs: - Wheezing / rhonchi / rales, remains fair bilaterally Abdomen: Soft, No distension / tenderness, + PEG tube Back: Mid back w/ dressing in place Extremities: LE without any edema, - Calf tenderness LABORATORY DATA: Please see below. ACTIVITY: [As tolerated]. DISCHARGE PLAN / DISPOSITION: Follow up with [facility] in [place], [place] DISCHARGE CONDITION: [Stable]. TIME SPENT ON DISCHARGE: 35 minutes Vital Signs/I&Os Vital Signs Date Time Temp Pulse Resp B/P (MAP) Pulse Ox O2 Delivery O2 Flow Rate FiO2 06/18/19 08:45 106 126/61 (82) 93 Ventilator 30 06/18/19 07:00 98.8 20 06/15/19 11:28 10.0 I&O- Last 24 Hours up to 6 AM 06/18/19 06:00 Intake Total 1120 ml Output Total 605 ml Balance 515 ml Laboratory Data Labs 24H Laboratory Tests 2 06/18/19 04:38: Immature Granulocyte % (Auto) 2.7, Neutrophils (%) (Auto) 78.3H, Lymphocytes (%) (Auto) 10.9L, Monocytes (%) (Auto) 6.5H, Eosinophils (%) (Auto) 1.3, Basophils (%) (Auto) 0.3, Neutrophils # (Auto) 14.4H, Lymphocytes # (Auto) 2.0, Monocytes # (Auto) 1.2H, Eosinophils # (Auto) 0.2, Basophils # (Auto) 0.1, Nucleated Red Blood Cells % (auto) 0.0, Anion Gap 7L, Glomerular Filtration Rate > 60.0, Calcium Level 8.5L, C-Reactive Protein, Quantitative 13.10H CBC/BMP Laboratory Tests 06/18/19 04:38 Microbiology Microbiology 06/16/19 Gram Stain - Final, Resulted 06/16/19 Wound Culture, Resulted Pending 06/11/19 Gram Stain - Final, Complete 06/11/19 Sputum Culture - Final, Complete Yeast Like Organism Discharge Medications Scheduled Bacitracin (Bacitracin) 28.4 Gm Oint...g., 0 DOSE TOP BID Budesonide (Budesonide) 0.5 Mg/2 Ml Ampul.neb, 2 MG INH RBID Bupropion HCl (Bupropion HCl) 75 Mg Tablet, 75 MG GT TID Doxycycline Hyclate (Doxycycline Hyclate) 100 Mg Tablet, 100 MG GT BID Enoxaparin Sodium (Lovenox) 40 Mg/0.4 Ml Syringe, 40 MG SC DAILY Formoterol Fumarate (Perforomist) 20 Mcg/2 Ml Vial.neb, 20 MCG INH RBID Letrozole (Letrozole) 2.5 Mg Tablet, 2.5 MG GT DAILY Nicotine (Nicotine Patch) 21 Mg Patch.td24, 1 PATCH TD DAILY Pantoprazole Sodium (Protonix IV) 40 Mg Vial, 40 MG IV DAILY Scheduled PRN Acetaminophen (Acetaminophen) 325 Mg/10.15 Ml Solution, 650 MG GT Q4HP PRN for PAIN OR FEVER Albuterol Sulfate (Proair Hfa) 8.5 Gm Hfa.aer.ad, 2 PUFF INH Q4H PRN for SHORTNESS OF BREATH, (Reported) Alprazolam (Alprazolam) 0.25 Mg Tablet, 0.25 MG PO TIDP PRN for ANXIETY/AGITATION Allergies Coded Allergies: Penicillins (Verified Allergy, Unknown, UNKNOWN REACTION PER SON, 05/20/19) LEXII KELLEY MD Jun 18, 2019 16:40
== END 2019-06-18 09:03 | disposition short-term general hospital (02) | DRG 4 ==
LOC: M ED 05:53 → M ED INP 08:10 → ENRESERVDT 08:27 → ENRESERVTM 08:27 → M ICU 09:03
PROVIDERS: ADMIT Internal Medicine Pulmonary Disease; ATTEND Internal Medicine
PROC: 5A1955Z Respiratory Ventilation, Greater than 96 Consecutive Hours (ICD-10-PCS; 2019-05-20)
PROC: 0BH17EZ Insertion of Endotracheal Airway into Trachea, Via Natural or Artificial Opening (ICD-10-PCS; 2019-05-20)
PROC: 0BBL3ZX Excision of Left Lung, Percutaneous Approach, Diagnostic (ICD-10-PCS; 2019-05-27)
PROC: 0DBW3ZX Excision of Peritoneum, Percutaneous Approach, Diagnostic (ICD-10-PCS; 2019-05-27)
PROC: 0B110F4 Bypass Trachea to Cutaneous with Tracheostomy Device, Open Approach (ICD-10-PCS; principal; 2019-05-31 09:30)
PROC: 0B21XFZ Change Tracheostomy Device in Trachea, External Approach (ICD-10-PCS; 2019-06-07)
PROC: 0DH68UZ Insertion of Feeding Device into Stomach, Via Natural or Artificial Opening Endoscopic (ICD-10-PCS; 2019-06-12)
PROC: 3E0 Administration, Physiological Systems and Anatomical Regions, Introduction (ICD-10-PCS; 2019-06-13)
PROC: 0JJT0ZZ Inspection of Trunk Subcutaneous Tissue and Fascia, Open Approach (ICD-10-PCS; 2019-06-17)
DX: J96.22 Acute and chronic respiratory failure with hypercapnia (principal); J44.1 Chronic obstructive pulmonary disease with (acute) exacerbation; N17.9 Acute kidney failure, unspecified; I24.8 Other forms of acute ischemic heart disease; N39.0 Urinary tract infection, site not specified; C78.02 Secondary malignant neoplasm of left lung; E87.3 Alkalosis; E46 Unspecified protein-calorie malnutrition; M80.08XA Age-related osteoporosis with current pathological fracture, vertebra(e), initial encounter for fracture; C56.2 Malignant neoplasm of left ovary; J98.11 Atelectasis; J90 Pleural effusion, not elsewhere classified; R64 Cachexia; R33.9 Retention of urine, unspecified; I95.9 Hypotension, unspecified; C50.912 Malignant neoplasm of unspecified site of left female breast; L72.3 Sebaceous cyst; J96.21 Acute and chronic respiratory failure with hypoxia; I25.10 Atherosclerotic heart disease of native coronary artery without angina pectoris; D72.829 Elevated white blood cell count, unspecified; F41.9 Anxiety disorder, unspecified; C50.911 Malignant neoplasm of unspecified site of right female breast; F17.200 Nicotine dependence, unspecified, uncomplicated; Z79.899 Other long term (current) drug therapy; Z88.0 Allergy status to penicillin; Z17.0 Estrogen receptor positive status [ER+]